=== PATIENT | male | born 1940 | race Caucasian/White ===

== ENCOUNTER 2022-03-01 10:43 | Outpatient (CLI) | payer MEDICARE, OTHER, SELFPAY ==
[2022-03-01 14:08] LABS: Chloride* 104 mmol/L (96-114); Potassium* 4.9 mmol/L (3.6-5.1); Sodium* 140 mmol/L (135-149)
[2022-03-01 14:11] LABS: Alanine Aminotransferase* 12 U/L (4-50); Carbon Dioxide* 30 mmol/L (20-32); Cholesterol* 150 mg/dL (90-199); Creatinine* 0.9 mg/dL (0.5-1.5); Estimated Glomerular Filt Rate 86 ml/min
[2022-03-01 14:12] LABS: Blood Urea Nitrogen* 24 mg/dL (7-30); Calcium* 8.8 mg/dL (8.4-10.6); Glucose* 78 mg/dL (60-115); HDL Cholesterol* 34 mg/dL (>=40); LDL Cholesterol Calculated 85 mg/dL (<100); Triglycerides* 156 mg/dL (40-149)
== END 2022-03-01 10:44 | disposition home or self-care (01) ==
PROVIDERS: PCP Family Medicine; Visit Provider Family Medicine
DX: I10 Essential (primary) hypertension (principal); M06.9 Rheumatoid arthritis, unspecified
CPT/HCPCS: 80048; 80061; 84460

== ENCOUNTER 2024-06-28 13:52 | Outpatient (CLI) | payer MEDICARE, OTHER, SELFPAY ==
--- OUTSIDE RECORDS SUMMARY | 2024-06-28 13:55 | XMS_ITS | Encounter Summary ---
Author Organization [facility] Address [address] [place] [address] Care Team Providers Care Telemetry Tech Name Role Phone Keven Montoya M.D. Primary Care Provider [phone] Reason for Referral * Outpatient (Routine) - Authorized Specialty Diagnoses / Procedures Referred By Contac t Referred To Contact Diagnoses Arthritis Hip Procedures DX Hip And Pelvis Left 2-3 Views Oleg Rojas M.D. [address] [place] [address] Phone: tel: fax: [facility] Region Referral ID Status Reason Start Date Expiration Date V isits Requested Visits Authorized [id number] Authorized 06/11/2024 06/11/2025 1 1 OR DATA ANALYST * Outpatient (Routine) - Authorized Specialty Diagnoses / Procedures Referred By Contac t Referred To Contact Family Medicine Diagnoses Arthritis Hip Oleg Rojas M.D. [address] [place] [address] Phone: tel: fax: [facility] Region Referral ID Status Reason Start Date Expiration Date V isits Requested Visits Authorized [id number] Authorized 06/11/2024 12/11/2025 1 1 OR DATA ANALYST * Outpatient (Routine) - Authorized Specialty Diagnoses / Procedures Referred By Contac t Referred To Contact Orthopedic Surgery Ivance, Oleg W, M.D. [address] [place] [address] Phone: tel: fax: [facility] Region Referral ID Status Reason Start Date Expiration Date V isits Requested Visits Authorized [id number] Authorized 06/11/2024 12/11/2025 1 1 OR DATA ANALYST * Outpatient (Routine) - Authorized Specialty Diagnoses / Procedures Referred By Wilian gomez Referred To Contact Orthopedic Surgery Oleg Rojas M.D. [address], [place] [address] Phone: tel: fax: [facility] Region Referral ID Status Reason Start Date Expiration Date V isits Requested Visits Authorized [id number] Authorized 06/11/2024 12/11/2025 1 1 OR DATA ANALYST Reason for Visit * Reason Comments Pain Pre-op Exam * Outpatient (Routine) - Closed Specialty Diagnoses / Procedures Referred By Wilian t Referred To Contact Orthopedic Surgery Diagnoses Arthritis Hip Maximiliano Martinez M.D. [address], [place] [address] Phone: tel: fax: [facility] Region Referral ID Status Reason Start Date Expiration Date Visits Re quested Visits Authorized [id number] Closed 06/02/2024 12/02/2025 1 1 Encounter Details Date Type Department Care Team (Late st Contact Info) Description 06/11/2024 9:15 AM SENIOR DATA ANALYST Comprehensive Visit Department of Orthopedic Surgery in [place], [place] [address], [place] [phone] Oleg Rojas M.D. [address], [place] [phone] Arthritis Hip Social History Tobacco Use Types Packs/Day Years Used Date Smoking Tobacco: Former Smokeless Tobacco: Never Tobacco Cessation:Counseling Given: Not Answered Alcohol Use Standard Drinks/Week Comments Never 0 (1 standard drink = 0.6 oz pur e alcohol) PHQ-2 Answer Date Recorded PHQ-2 Score 0 01/15/2021 Nutrition Answer Date Recorded Nutrition: EVOO Fat Source 13 04/25 Nutrition: Servings of Fruits/Vegetables per Day Not on file 04/25/2020 Dental Answer Date Recorded Dental: Regular Dentist Unknown 09/19/19 Sex and Gender Information Value Date Recorded Sex Assigned at Not on file Legal Sex Male 4:20 AM SENIOR DATA ANALYST Gender Identity Male 12/01/2017 1:25 PM CDT Sexual Orientation Straight 12/01/2017 1: 25 PM CDT documented as of this encounter Last Filed Vital Signs Vital Sign Reading Time Taken Comments Blood Pressure - - Pulse - - Temperature 36.1 C (97 F) 06/11/2024 9:08 AM SENIOR DATA ANALYST Respiratory Rate - - Oxygen Saturation - - Inhaled Oxygen Concentration - - Weight 88.3 kg (194 lb 10.7 oz) 06/11/2024 9:08 AM SENIOR DATA ANALYST Height 180.5 cm (5' 11.06) 06/11/2024 9:[address] Body Mass Index 27.1 06/11/2024 9:08 AM SENIOR DATA ANALYST documented in this encounter Patient Instructions * Patient Instructions* Socorro Iqbal L.P.N. - 06/11/2024 9:15 AM SENIOR DATA ANALYST Patient to be scheduled for left total hip arthroplasty with Dr. Rojas. [facility] Hip Replacement Patient Education booklet was given and reviewed with patient verbalizing understanding of information. Treating Constipation Caused by Pain Medications booklet given and reviewed with patient verbalizing understanding of information. [facility] Medical Necessity form was completed and given to Surgery Coordinator. Application for Disability Parking Certificate was completed and given to patient. Reviewed pre-op dental care and post-op dental prophylactic antibiotic guidelines with patient with patient verbalizing understanding of guidelines. Patient was given YSABEL wipes and How to Cleanse Your Skin Before Surgery brochure with patient verbalizing understanding of usage. Reviewed how to care for incision post-operatively with handouts given on Prineo dressing. Patient is a non smoker. Information was given and reviewed on Pre-operative teaching class at [facility]. Patient will call [facility] to confirm the pre-operative session they will attend. 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 After the surgery. Patient does have a son who lives 2 miles from him who is able to help out once in awhile. Patient will call back in to schedule once he has set up home assistance. OR DATA ANALYST documented in this encounter Consult Notes * Oleg Rojas M.D. - 06/11/2024 9:15 AM CST Patient is an 83-year-old male with left hip pain. He has [id number] arthritis in that hip. Seen at the request of Dr. Maximiliano Martinez. He likes to walk, sometimes up to 6 miles a day. He would like to remain active but is getting more and more of a problem to walk long distances. His hip will ache at night. He has trouble rolling over, trouble finding a comfortable position. The pain is in the groin. He gets sharp pains, stabbing pain. Sometimes, it is kind of a constant pain. Could be up to 9/10 pain. His right hip is arthritic as well but does not bother him like the left side does. Allergies, past medical/surgical history, medications were reviewed as per chart. Does have a history of rheumatoid arthritis. He is on methotrexate. REVIEW OF SYSTEMS No recent fever, chills, chest pain, shortness of breath. SOCIAL HISTORY Smoking, alcohol history unknown. OBJECTIVE PHYSICAL EXAMINATION General: He is a well-developed, well-nourished, pleasant 83-year-old male. No acute distress. Oriented x3. Mood and affect are normal. Vital Signs: As per nurse's note that were taken today. Gait: He ambulates with a normal heel-toe gait. Extremities: Left hip has decreased motion. He has pain with extremes of motion. Right hip has better motion. No redness or warmth or swelling about the left hip. Good range of motion of the left knee. Motor and sensation are intact in bilateral lower extremities. Bilateral feet are pink and warm. ASSESSMENT / PLAN #1 Osteoarthritis of the left hip PLAN: I have offered him a left total hip arthroplasty. Risks and benefits were discussed with the patient, infection, bleeding, nerve and vessel injury, and blood clots and leg length discrepancy. He doeswish to proceed with surgery. OR DATA ANALYST OR DATA ANALYST documented in this encounter Plan of Treatment Upcoming Encounters Date Type Department Care Team (Late st Contact Info) Description 09/09/2024 10:20 AM SENIOR DATA ANALYST Appointment Department of Laboratory Medicine in [place], [place] [address] [place] [phone] Sonido Pino P.A.-C., M.S. [address] [place] [address] Scheduled Orders Name Type Priority Associated Diagnoses Orde r Schedule DX Hip And Pelvis Left 2-3 Views Imaging RAD - Routine (most inpatients and all outpatients) Arthritis Hip 1 Occurrences starting 06/11/2024 until 06/11/2025 Scheduled Referrals Name Type Priority Associated Diagnoses Order Schedule Orthopedic Surgery Post Op (clinic) Outpatient Referral Routine 1 Occurrenc es starting 06/11/2024 until 09/11/2025 Orthopedic Surgery Post Op (clinic) Outpatient Referral Routine 1 Occurrenc es starting 06/11/2024 until 12/09/2024 Primary Care - [facility] consult (clinic) Outpatient Referral Routine Arthritis Hip Expected: 06/11/2024, Expires: 09/11/2025 documented as of this encounter Visit Diagnoses Diagnosis Arthritis Hip documented in this encounter Additional Health Concerns Infection Onset Date Last Indicated Resolved Time Protective Environment 11/21/2022 11/21/2022 documented as of this encounter Care Teams Telemetry Tech Relationship Specialty Start Date End Date Keven Montoya M.D. [address] [place] [address] PCP - General Family Medicine 12/26/20 documented as of this encounter
--- OUTSIDE RECORDS SUMMARY | 2024-06-28 13:55 | XMS_ITS | Referral Summary ---
Author Organization [facility] Address [address] [place] [address] Care Team Providers Care Turret Punch Operator Name Role Phone Keven Montoya M.D. Primary Care Provider Source Comments Patient records contain information from all sites at [facility]. For routine questions regarding patient records, call [phone] during business hours, M-F 8:00 AM - 5:00 PM Central Time. Record requests for emergency care only can be directed to [phone] at any time.[facility] Encounters Date Type Department Care Team Description 06/11/2024 Documentation Division of Rheumatology in [place], [place] [address] [place] [address] Roseanne Avalos R.N. Lab Monitoring 06/11/2024 9:15 AM BILINGUAL SOCIAL WORKER Comprehensive Visit Department of Orthopedic Surgery in [place], [place] [address] [phone] Oleg Rojas M.D. Arthritis Hip 06/10/2024 8:53 AM BILINGUAL SOCIAL WORKER - 06/10/2024 11:59 PM BILINGUAL SOCIAL WORKER Hospital Encounter Department of Laboratory Medicine in [place], [place] [address] [phone] Sonido Pino P.A.-C., M.S. Medication Therapy Retirement Not Anticoagulant Discharge Disposition: Home or Self Care 06/02/2024 10:14 AM BILINGUAL SOCIAL WORKER - 06/02/2024 11:59 PM BILINGUAL SOCIAL WORKER Hospital Encounter Department of Radiology in [place], [place] [address] [place] [phone] Maximiliano Martinez M.D. Arthritis Hip Discharge Disposition: Home or Self Care 06/02/2024 10:00 AM BILINGUAL SOCIAL WORKER Office Visit Department of Physical Medicine and Rehabilitation in [place], [place] [address] [place] [phone] Maximiliano Martinez M.D. Arthritis Hip (Primary Dx); Pain Hip Left; Bursitis Trochanteric Bilateral 06/01/2024 Orders Only [facility] Keven Montoya M.D. 05/28/2024 Clinical Communication Department of Physical Medicine and Rehabilitation in [address] [phone] Maximiliano Martinez M.D. Follow-up 05/12/2024 10:00 AM CDT Procedure visit Department of Physical Medicine and Rehabilitation in [address] [phone] Maximiliano Martinez M.D. Bursitis Trochanteric Left 05/06/2024 Clinical Communication Department of Physical Medicine and Rehabilitation in [address] [phone] Maximiliano Martinez M.D. Nurse Assessment (Changes in hip pain) 04/22/2024 11:10 AM CDT Ancillary Procedure Department of Physical Medicine and Rehab 04/22/2024 11:30 AM CDT Procedure visit Department of Physical Medicine and Rehabilitation in [place], [place] [address] [place] [phone] Maximiliano Martinez M.D. Pain Hip Bilateral (Primary Dx); Arthritis Hip 04/14/2024 Orders Only Department of Physical Medicine and Rehabilitation in [place], [place] [address] [place] [phone] Maximiliano Martinez M.D. Arthritis Hip (Primary Dx) 04/14/2024 Clinical Communication Department of Family [facility], in [address] [phone] Keven Montoya M.D. Order Request 04/09/2024 Orders Only Department of Family Medicine, [facility], in [address] [phone] Keven Montoya M.D. Arthritis Hip (Primary Dx) 04/02/2024 Clinical Communication Department of Orthopedic Surgery in [place], [place] [address] [place] [phone] Juan Manuel Mendez M.D. from Last 3 Months Allergies No known active allergies Medications FOLIC ACID/MULTIVIT-M IN/LUTEIN (CENTRUM SILVER ORAL) Take 1 tablet by mouth daily. 9 Active cyanocobalamin (for_VITAMIN B12) 500 mcg tablet Take 1 tablet by mouth daily. 0 Active ascorbic acid, vitamin C, (ascorbic acid with sun hips) 500 mg tablet Take 1 tablet by mouth daily. 9 Active aspirin, buffered, 325 mg tablet Take 325 mg by mouth daily. Active gabapentin (NEURONTIN) 300 mg capsule Take 1 capsule (300 mg total) by mouth 3 (three) times a day. 270 capsule 3 1 Active Additional Information Patient taking differently:300 mg oralAs needed, Reported on 03/10/2024 Vitamin C 1,000 mg tablet TAKE 1000MG BY MOUTH DAILY 1 Active lisinopriL (PRINIVIL,ZESTR IL) 20 mg tablet Take 20 mg by mouth daily. 3 Active methotrexate, PF, 25 mg/mL PF injectionIndica tions:Arthritis Rheumatoid (HCC) Inject 0.8 mL (20 mg total) under the skin once a week. Remember to do blood tests every 3 months. 9.6 mL 3 4 03/12/20 25 Active syringe with needle (BD Tuberculin Syringe) 1 mL 27 x 1/2 syringeIndicati ons:Arthritis Rheumatoid (HCC) USE WITH INJECTABLE METHOTREXATE 50 each 3 4 Active hydroxychloroqu ine (PlaqueniL) 200 mg tabletIndicatio ns:Arthritis Rheumatoid (HCC) Take 1 tablet (200 mg total) by mouth daily. Remember to do yearly eye exam . 90 tablet 3 4 Active folic acid 1 mg tabletIndicatio ns:Arthritis Rheumatoid (HCC) Take 5 tablets (5,000 mcg total) by mouth daily. Annual rheum appt needed for future refills. 450 tablet 3 4 03/12/20 25 Active insulin syringe-needle U-100 1 mL 30 gauge x 3/8 syringeIndicati ons:Arthritis Rheumatoid (HCC) Use with methotrexate injection 12 each 3 4 Active albuterol 90 mcg/actuation inhaler Inhale 1-2 puffs every 4 (four) hours as needed. 4 Active benzonatate (Tessalon) 200 mg capsule Take 200 mg by mouth 3 (three) times a day as needed. 4 Active Active Problems Problem Noted Date Diagnosed Date Lesion Skin Face 12/01/2017 Arthritis Rheumatoid 11/06/2004 Immunizations Name Administration Dates Next Due DT, Pediatric 01/09/2006 H1N1 All Forms 04/10/2010 Influenza TIV (IM) 08/14/2012,06/22/2008, 001 Influenza, Seasonal, Injectable 08/14/2012,06/22,05/21/2001 Influenza, Unspecified 08/24/2015,2012,08/14/2012,2011 PPSV23 06/28/2008 Td Preservative Free (TENIVA C, DECAVAC) 04/21/2018 Tdap 01/09/2006 influenza trivalent high dos e (HD)(PF) 06/07/2019,06/02/2018,05/11/2014 influenza trivalent vaccine (6 months and older)(PF) 04/10/2010 influenza vaccine quad (FLUZONE/FLUARIX) (6 months and older)(PF) 04/17/2020,08/24/2015 Social History Tobacco Use Types Packs/Day Years [...] Date Recorded Dental: Regular Dentist Unknown 09/19/19 21 Sex and Gender Information Value Date Recorded Sex Assigned at Not on file Legal Sex Male 4:20 AM BILINGUAL SOCIAL WORKER Gender Identity Male 12/01/2017 1:25 PM CDT Sexual Orientation Straight 12/01/2017 1: 25 PM CDT Last Filed Vital Signs Vital Sign Reading Time Taken Comments Blood Pressure 150/79 03/12/2024 8:49 AM CDT Pulse 84 03/12/2024 8:49 AM CDT Temperature 36.1 C (97 F) 06/11/2024 9:08 AM BILINGUAL SOCIAL WORKER Respiratory Rate 20 01/15/2021 9:38 AM CDT Oxygen Saturation - - Inhaled Oxygen Concentration - - Weight 88.3 kg (194 lb 10.7 oz) 06/11/2024 9:08 AM BILINGUAL SOCIAL WORKER Height 180.5 cm (5' 11.06) 06/11/2024 9:[address] Body Mass Index 27.1 06/11/2024 9:08 AM BILINGUAL SOCIAL WORKER Plan of Treatment Upcoming Encounters Date Type Department Care Team (Late st Contact Info) Description 09/09/2024 10:20 AM BILINGUAL SOCIAL WORKER Appointment Department of Laboratory Medicine in [address] [phone] Sonido Pino, P.A.-C., M.S. [address] [place] [address] Medical Devices Implanted Type Area Aircraft Fuselage Framer Device Identifier Shelf Expiration Date Model / Serial / Lot [employer]elok Rp Mkiii Tiunite 4.00mm Rp 4.00mm X 15.00mm- 011 Implanted:Qty: 1 on 07/01/2011 by Sonido Roblero D.D.S. Hardware e.g. pins/screws/r ods Mouth [employer] [id number] / / [id number] Description:Site #4 [employer] Rp Mkiii Tiunite 4.00mm Rp 4.00mm X 13.00mm- 011 Implanted:Qty: 1 on 07/01/2011 by Sonido Roblero D.D.S. Hardware e.g. pins/screws/r ods Mouth [employer] [id number] / / [id number] Description:Site #5 Jeannie Thompsoniii Tiunite 4.00mm Rp 4.00mm X 15.00mm- 011 Implanted:Qty: 1 on 07/01/2011 by Sonido Roblero D.D.S. Hardware e.g. pins/screws/r ods Mouth [employer] [id number] / / [id number] Description:Site #7 Gonzalorjosephine Thompsoniii Tiunite 4.00mm Rp 4.00mm X 15.00mm- 011 Implanted:Qty: 1 on 07/01/2011 by Sonido Roblero D.D.S. Hardware e.g. pins/screws/r ods Mouth [employer] [id number] / / [id number] Description:Site #8 Gonzalorjosephine Thompsoniii Tiunite 4.00mm Rp 4.00mm X 15.00mm- 011 Implanted:Qty: 1 on 07/01/2011 by Sonido Roblero D.D.S. Hardware e.g. pins/screws/r ods Mouth [employer] [id number] / / [id number] Description:Site #9 Jeannie Thompsoniii Tiunite 4.00mm Rp 4.00mm X 11.50mm- 011 Implanted:Qty: 1 on 07/01/2011 by Sonido Roblero D.D.S. Hardware e.g. pins/screws/r ods Mouth [employer] [id number] / / [id number] Description:Site #12 Gonzalorjosephine Rp Mkiii Tiunite 4.00mm Rp 4.00mm X 10.00mm- 011 Implanted:Qty: 1 on 07/01/2011 by Sonido Roblero D.D.S. Hardware e.g. pins/screws/r ods Mouth [employer] [id number] / / [id number] Description:Site #13 Procedures Procedure Name Priority Date/Time Associated Diagnosis Comments CREATININE WITH EGFR, S/P Routine 06/10/2024 9:27 AM BILINGUAL SOCIAL WORKER Medication Therapy Rail Switch Operator Not Anticoagulant ALANINE AMINOTRANSFERASE (ALT), S/P Routine 06/10/2024 9:27 AM BILINGUAL SOCIAL WORKER Medication Therapy Retirement Not Anticoagulant ASPARTATE AMINOTRANSFERASE (AST), S/P Routine 06/10/2024 9:27 AM BILINGUAL SOCIAL WORKER Medication Therapy Rail Switch Operator Not Anticoagulant CBC WITH DIFFERENTIAL, B Routine 06/10/2024 9:27 AM BILINGUAL SOCIAL WORKER Medication Therapy Rail Switch Operator Not Anticoagulant DX HIP AND PELVIS LEFT 2-3 VIEWS RAD - Routine (most inpatients and all outpatients) 06/02/2024 10:30 AM BILINGUAL SOCIAL WORKER Arthritis Hip NV ARTHCS ASP/INJ MJR JT W US Routine 05/12/2024 10:00 AM CDT Bursitis Trochanteric Left NV ARTHCS ASP/INJ MJR JT W US Routine 04/22/2024 11:30 AM CDT Arthritis Hip Pain Hip Bilateral NV ARTHCS ASP/INJ MJR JT W US Routine 04/22/2024 11:30 AM CDT Arthritis Hip Pain Hip Bilateral PHYSICAL MEDICINE AND REHAB IMAGE EXAM Routine 04/22/2024 11:10 AM CDT BASIC METABOLIC PANEL, S/P Routine 12/31/2022 10:58 AM CDT Monitoring For Therapeutic Drug Therapy from Last 3 Months or Most Recently Relevant to Health Maintenance Results * (ABNORMAL) CBC with Differential, Blood (06/10/2024 9:27 AM BILINGUAL SOCIAL WORKER) Hemoglobin 14.5 13.2 - 16.6 g/dL 06/10/2024 9:36 AM BILINGUAL SOCIAL WORKER OWAT Hematocrit 42.5 38.3 - 48.6 % 06/10/2024 9:36 AM BILINGUAL SOCIAL WORKER OWAT Erythrocytes 4.48 4.35 - 5.65 x10(12)/L 06/10/2024 9:36 AM BILINGUAL SOCIAL WORKER OWAT MCV 94.9 78.2 - 97.9 fL 06/10/2024 9:36 AM BILINGUAL SOCIAL WORKER OWAT RBC Distrib Width 15.6(H) 11.8 - 14.5 % 06/10/2024 9:36 AM BILINGUAL SOCIAL WORKER OWAT Platelet Count 216 135 - 317 x10(9)/L 06/10/2024 9:36 AM BILINGUAL SOCIAL WORKER OWAT Leukocytes 6.2 3.4 - 9.6 x10(9)/L 06/10/2024 9:36 AM BILINGUAL SOCIAL WORKER OWAT Neutrophils 4.41 1.56 - 6.45 x10(9)/L 06/10/2024 9:36 AM BILINGUAL SOCIAL WORKER OWAT Lymphocytes 0.92(L) 0.95 - 3.07 x10(9)/L 06/10/2024 9:36 AM BILINGUAL SOCIAL WORKER OWAT Monocytes 0.65 0.26 - 0.81 x10(9)/L 06/10/2024 9:36 AM BILINGUAL SOCIAL WORKER OWAT Eosinophils 0.13 0.03 - 0.48 x10(9)/L 06/10/2024 9:36 AM BILINGUAL SOCIAL WORKER OWAT Basophils 0.06 0.01 - 0.08 x10(9)/L 06/10/2024 9:36 AM BILINGUAL SOCIAL WORKER OWAT Blood (Blood, Venous) 06/10/2024 9:27 AM BILINGUAL SOCIAL WORKER 06/10/2024 9:33 AM BILINGUAL SOCIAL WORKER us Sonido Pino P.A.-C., M.S. LAB BLOOD ADD-ON Final Result [facility] [address] [place] [address], [facility] OWAT [facility] in [place] [address] [place] [address] * ALT (Alanine Aminotransferase) (06/10/2024 9:27 AM BILINGUAL SOCIAL WORKER) Alanine Aminotransferase (ALT), P 10 7 - 55 U/L 06/10/2024 9:57 AM BILINGUAL SOCIAL WORKER OWAT Blood (Blood, Venous) 06/10/2024 9:27 AM BILINGUAL SOCIAL WORKER 06/10/2024 9:33 AM BILINGUAL SOCIAL WORKER us Sonido Pino P.A.-C., M.S. LAB BLOOD ADD-ON Final Result Performing Organization Address City/[facility]/ZIP Co de Phone Number [facility] [address], [place] [address], [place] OWAT [facility] in [place] [address], [place] [address] * AST (Aspartate Aminotransferase) (06/10/2024 9:27 AM BILINGUAL SOCIAL WORKER) Aspartate Aminotransferase (AST), P 24 8 - 48 U/L 06/10/2024 9:57 AM BILINGUAL SOCIAL WORKER OWAT Blood (Blood, Venous) 06/10/2024 9:27 AM BILINGUAL SOCIAL WORKER 06/10/2024 9:33 AM BILINGUAL SOCIAL WORKER us Sonido Pino P.A.-C., M.S. LAB BLOOD ADD-ON Final Result Performing Organization Address [facility] Co de Phone Number [facility] [address], [place] [address], [place] [facility] in [place] [address] [place] [address] * Creatinine with Estimated GFR (06/10/2024 9:27 AM BILINGUAL SOCIAL WORKER) Creatinine 1.04 0.74 - 1.35 mg/dL 06/10/2024 9:57 AM BILINGUAL SOCIAL WORKER OWAT Estimated GFR (eGFR) 71 >=60 mL/min/BSA 06/10/2024 9:57 AM BILINGUAL SOCIAL WORKER OWAT Comment: Estimated GFR calculated using the 2020 CKD_EPI creatinine equation. Blood (Blood, Venous) 06/10/2024 9:27 AM BILINGUAL SOCIAL WORKER 06/10/2024 9:33 AM BILINGUAL SOCIAL WORKER us Sonido Pino P.A.-C., M.S. LAB BLOOD ADD-ON Final Result [facility] [address] [place] [address], [facility] OWAT [facility] in [place] [address] [place] [address] * DX Hip And Pelvis Left 2-3 Views (06/02/2024 10:30 AM BILINGUAL SOCIAL WORKER) Anatomical Region Laterality Modality Lower Extremity, Pelvis, Hip , Musculoskeletal RST LOS, Musculoskeletal ARZ LOS, Muskuloskeletal FLA LOS Left Digit al Radiography Impressions 06/02/2024 10:34 AM BILINGUAL SOCIAL WORKER Comparison 03/12/2024. Unchanged moderate left hip joint osteoarthritis. Alignment normal. No acute fracture. Asphericity of the femoral head neck junctions can predispose to femoroacetabular impingement bilaterally. Narrative 06/02/2024 10:34 AM BILINGUAL SOCIAL WORKER EXAM: DX HIP AND PELVIS LEFT 2-3 VIEWS Procedure Note Azeem Bowden M.D. - 06/02/2024 EXAM: DX HIP AND PELVIS LEFT 2-3 VIEWS IMPRESSION: Comparison 03/12/2024. Unchanged moderate left hip joint osteoarthritis. Alignment normal. Noacute fracture. Asphericity of the femoral head neck junctions canpredispose to femoroacetabular impingement bilaterally. us Maximiliano Martinez M.D. IMG DIAGNOSTIC IMAGING P ROCEDURES Final Result * NV ARTHCS ASP/INJ MJR JT W US (05/12/2024 10:00 AM CDT) Only the most recent of3 resultswithin the time period is included. Narrative MMODAL - 05/12/2024 10:00 AM CDT Maximiliano Martinez M.D. 05/12/2024 9:52 AM Hip site - Left greater trochanteric bursa: injection only Performed by: Maximiliano Martinez M.D. Authorized by: Maximiliano Martinez M.D. Care team members present 1. Ell, Dulce K PROCEDURE DETAILS Indications: Left trochanteric bursitis and myofascial lateral hip pain Procedure Location hip Hip site - Left greater trochanteric bursa Site prep: patient was prepped and draped in usual sterile fashion Patient position: side-lying Procedural approach: posterolateral Procedure performed: injection only Needle gauge: 25 G, length: 2.5 in Ultrasound image guidance used to localize target, identify at risk structures, and dynamically used to direct therapy to the target. Image(s) acquired and saved. Pre-procedure image guidance used to localize target and identify at risk structures, and plan approach and site was marked using indelible marker Probe: convex low/mid-frequency Needle approach: posterior to anterior Ultrasound visualization: in-plane Procedural Medication The following medications were administered at the target site(s) Local anesthetic: 4 mL BUPivacaine PF 0.25 % (2.5 mg/mL) Corticosteroid: 40 mg methylPREDNISolone acetate 40 mg/mL CONSENT Consent obtained: written (Risks, benefits and alternatives were discussed and a written Informed Consent was obtained. Please see Informed Consent form for further details.) UNIVERSAL PROTOCOL All relevant documentation and testing were reviewed and available. All required blood products, implants, devices and or special equipment were made available as applicable. Pre-procedure verification was conducted and the correct site was marked if required. A fire risk and smoke assessment were done as applicable. The procedural time-out to verify correct patient, correct side/site, and procedure was conducted prior to performing the procedure and confirmed in a procedural pause. PRE-PROCEDURE DETAILS Procedure purpose: diagnostic and therapeutic Indications: Left trochanteric bursitis and myofascial lateral hip pain Appropriate hand hygiene, gown, cap, mask, protective eyewear, sterile gloves, skin preparation, sterile drape, and strict aseptic technique were utilized as applicable for the procedure. Site preparation: chlorhexidine POST-PROCEDURE DETAILS Procedure completed successfully: yes Complications: no apparent complications Post-procedure instructions: avoid strenuous activity for 5 days, avoid submersion of procedure site for 24 hours and post-procedure activity instructions provided Discharge instructions: ice area as needed for comfort us Maximiliano Martinez M.D. PROCEDURE/MINOR SURGICAL ORDERABLES Final Result MMODAL NA * Non-Radiology Image-Physical Medicine And Rehab Image Exam (04/22/2024 11:10 AM CDT) 04/22/2024 11:1 0 AM CDT Narrative IIMS - 04/22/2024 12:08 PM CDT This order has been created and auto-finalized to support the import of images acquired without order. The clinical documentation to support these images can be found on the encounter that produced images. us Provider Not In System IMG NON RAD IMAGING PROCE DURES Final Result IIMS NA from Last 3 Months Additional Health Concerns Infection Onset Date Last Indicated Protective Environment 11/21/2022 3 Insurance MEDICARE MANUAL QA TESTER BENEFIT PLAN Care Teams Turret Punch Operator Relationship Specialty Start Date End Date Keven Montoya M.D. [address] [place], [place] [address] [place] [phone] PCP - General Family Medicine 12/26/20
--- OUTSIDE RECORDS SUMMARY | 2024-06-28 13:55 | XMS_ITS | Clinical Summary ---
Author Organization [facility] Address [address] [place] [id number] Care Team Providers Care Order Builder Loader Name Role Phone No Ref-Primary, Physician Primary Care Provider Allergies No known active allergies Medications hydroxychloroqui ne (PLAQUENIL) 200 MG tablet Take 200 mg by mouth daily Active folic acid-vit B6-vit B12 (FOLGARD) 0.8-10-0.115 MG TABS per tablet Take 1 tablet by mouth daily Active Social History Tobacco Use Types Packs/Day Years Used Date Smoking Tobacco: Never Assessed Sex and Gender Information Value Date Recorded Sex Assigned at Not on file Legal Sex Male 4:00 AM FRET SAW OPERATOR Gender Identity Not on file Sexual Orientation Not on file Last Filed Vital Signs Vital Sign Reading Time Taken Comments Blood Pressure 140/80 08/29/2017 8:18 PM FRET SAW OPERATOR Pulse 90 08/29/2017 8:18 PM FRET SAW OPERATOR Temperature 36.4 C (97.6 F) 08/29/2017 8:18 PM FRET SAW OPERATOR Respiratory Rate 18 08/29/2017 8:18 PM FRET SAW OPERATOR Oxygen Saturation 90% 08/29/2017 7:10 PM FRET SAW OPERATOR Inhaled Oxygen Concentration - - Weight - - Height - - Body Mass Index - - Plan of Treatment Not on file Insurance MEDICARE Care Teams Order Builder Loader Relationship Specialty Start Date End Date No Ref-Primary, Physician PCP - General 08/29/17
--- OUTSIDE RECORDS SUMMARY | 2024-06-28 13:55 | XMS_ITS | Encounter Summary ---
Author Organization [facility] Address [address] [place] [address] Care Team Providers Care Rubber Block Layer Name Role Phone Keven Montoya M.D. Primary Care Provider [phone] Reason for Visit * Reason Comments Lab Monitoring Encounter Details Date Type Department Care Team (Late st Contact Info) Description 06/11/2024 Documentation Division of Rheumatology in [place], [place] [address] [place] [phone] Roseanne Avalos RKatharinaN. [address] [place] [phone] Lab Monitoring Social History Tobacco Use Types Packs/Day Years Used Date Smoking Tobacco: Former Smokeless Tobacco: Never Alcohol Use Standard Drinks/Week Comments Never 0 [...] on file Legal Sex Male 4:20 AM ENGINEER Gender Identity Male 12/01/2017 1:25 PM CDT Sexual Orientation Straight 12/01/2017 1: 25 PM CDT documented as of this encounter Progress Notes * Roseanne Avalos, R.N. - 06/11/2024 1:17 PM CST Documentation note only, patient not contacted ASSESSMENT Rheumatology monitoring labs completed on 06/10/24 for methotrexate monitoring were reviewed per provider order. Labs reviewed: absolute neutrophil count, ALT, AST, creatinine, hemoglobin, leukocytes, platelets Labs viewable in Labs Tab of Chart Review. PLAN Patient to continue with current plan of care. Patient next due for monitoring labs three months after last monitoring labs; these future lab orders were placed. In 2024, the Division of Rheumatology plans to update the medication lab monitoring review process.With this change, care team review of lab results (like the above note) may not be viewable to the patient via the patient portal. If lab results require an adjustment to your Rheumatology care plan,please be reassured that you will be contacted by a member of our care team. NEER documented in this encounter Plan of Treatment Upcoming Encounters Date Type Department Care Team (Late st Contact Info) Description 09/09/2024 10:20 AM ENGINEER Appointment Department of Laboratory Medicine in [address] [phone] Sonido Pino P.A.-Deysi., M.S. [address] [place] [phone] Scheduled Orders Name Type Priority Associated Diagnoses Orde r Schedule CBC with Differential, Blood Lab Routine Medication Therapy Detention Not Anticoagulant Expected: 09/09/2024, Expires: 09/09/2025 AST (Aspartate Aminotransferase) Lab Routine Medication Therapy C Programmer Not Anticoagulant Expected: 09/09/2024, Expires: 09/09/2025 ALT (Alanine Aminotransferase) Lab Routine Medication Therapy C Programmer Not Anticoagulant Expected: 09/09/2024, Expires: 09/09/2025 Creatinine with Estimated GFR Lab Routine Medication Therapy Detention Not Anticoagulant Expected: 09/09/2024, Expires: 09/09/2025 documented as of this encounter Visit Diagnoses Diagnosis Medication Therapy C Programmer Not Anticoagulant- Primary documented in this encounter Additional Health Concerns Infection Onset Date Last Indicated Resolved Time Protective Environment 11/21/2022 11/21/2022 documented as of this encounter Care Teams Rubber Block Layer Relationship Specialty Start Date End Date Keven Montoya M.D. [address] [place] [address] [place] [phone] PCP - General Family Medicine 12/26/20 documented as of this encounter
--- OUTSIDE RECORDS SUMMARY | 2024-06-28 13:55 | XMS_ITS | Encounter Summary ---
Author Organization [facility] Address [address] [place] [address] Care Team Providers Care Ophthalmic Medical Assistant Name Role Phone Keven Montoya M.D. Primary Care Provider [phone] Encounter Details Date Type Department Care Team (Latest Contact Info) Description 06/10/2024 8:53 AM MULTI TOWNSHIP ASSESSOR - 06/10/2024 11:59 PM MULTI TOWNSHIP ASSESSOR Hospital Encounter Department of Laboratory Medicine in [place], [place] [address] [place] [phone] Sonido Pino PJoe-Deysi., M.S. [address] [place] [phone] Medication Therapy Longterm Not Anticoagulant Discharge Disposition: Home or Self Care Social History Tobacco Use Types Packs/Day Years [...] on file Legal Sex Male 4:20 AM MULTI TOWNSHIP ASSESSOR Gender Identity Male 12/01/2017 1:25 PM CDT Sexual Orientation Straight 12/01/2017 1: 25 PM CDT documented as of this encounter Medications at Time of Discharge albuterol 90 mcg/actuation inhaler Inhale 1-2 puffs every 4 (four) hours as needed. 04/12/2024 ascorbic acid, vitamin C, (ascorbic acid with sun hips) 500 mg tablet Take 1 tablet by mouth daily. 08/16/2008 aspirin, buffered, 325 mg tablet Take 325 mg by mouth daily. benzonatate (Tessalon) 200 mg capsule Take 200 mg by mouth 3 (three) times a day as needed. 04/12/2024 cyanocobalamin (for_VITAMIN B12) 500 mcg tablet Take 1 tablet by mouth daily. 05/31/2010 folic acid 1 mg tabletIndication s:Arthritis Rheumatoid (HCC) Take 5 tablets (5,000 mcg total) by mouth daily. Annual rheum appt needed for future refills. 450 tablet 3 03/12/2024 5 FOLIC ACID/MULTIVIT-RI N/LUTEIN (CENTRUM SILVER ORAL) Take 1 tablet by mouth daily. 08/16/2008 hydroxychloroqui ne (PlaqueniL) 200 mg tabletIndication s:Arthritis Rheumatoid (HCC) Take 1 tablet (200 mg total) by mouth daily. Remember to do yearly eye exam . 90 tablet 3 03/12/2024 insulin syringe-needle U-100 1 mL 30 gauge x 3/8 syringeIndicatio ns:Arthritis Rheumatoid (HCC) Use with methotrexate injection 12 each 3 03/12/2024 lisinopriL (PRINIVIL,ZESTRI L) 20 mg tablet Take 20 mg by mouth daily. 12/05/2022 methotrexate, PF, 25 mg/mL PF injectionIndicat ions:Arthritis Rheumatoid (HCC) Inject 0.8 mL (20 mg total) under the skin once a week. Remember to do blood tests every 3 months. 9.6 mL 3 03/12/2024 5 syringe with needle (BD Tuberculin Syringe) 1 mL 27 x 1/2 syringeIndicatio ns:Arthritis Rheumatoid (HCC) USE WITH INJECTABLE METHOTREXATE 50 each 3 03/12/2024 Vitamin C 1,000 mg tablet TAKE 1000MG BY MOUTH DAILY 11/03/2020 documented as of this encounter Plan of Treatment Upcoming Encounters Date Type Department Care Team (Late st Contact Info) Description 09/09/2024 10:20 AM MULTI TOWNSHIP ASSESSOR Appointment Department of Laboratory Medicine in [place], [place] [address] [place] [phone] Sonido Pino P.A.-C., M.S. [address] [place] [phone] documented as of this encounter Procedures Procedure Name Priority Date/Time Associated Diagnosis Comments CBC WITH DIFFERENTIAL, B Routine 06/10/2024 9:27 AM MULTI TOWNSHIP ASSESSOR Medication Therapy Longterm Not Anticoagulant ALANINE AMINOTRANSFERASE (ALT), S/P Routine 06/10/2024 9:27 AM MULTI TOWNSHIP ASSESSOR Medication Therapy Anthropology Faculty Member Not Anticoagulant ASPARTATE AMINOTRANSFERASE (AST), S/P Routine 06/10/2024 9:27 AM MULTI TOWNSHIP ASSESSOR Medication Therapy Longterm Not Anticoagulant CREATININE WITH EGFR, S/P Routine 06/10/2024 9:27 AM MULTI TOWNSHIP ASSESSOR Medication Therapy Longterm Not Anticoagulant documented in this encounter Results * Creatinine with Estimated GFR (06/10/2024 9:27 AM MULTI TOWNSHIP ASSESSOR) Creatinine 1.04 0.74 - 1.35 mg/dL 06/10/2024 9:57 AM MULTI TOWNSHIP ASSESSOR OWAT Estimated GFR (eGFR) 71 >=60 mL/min/BSA 06/10/2024 9:57 AM MULTI TOWNSHIP ASSESSOR OWAT Comment: Estimated GFR calculated using the 2020 CKD_EPI creatinine equation. Blood (Blood, Venous) 06/10/2024 9:27 AM MULTI TOWNSHIP ASSESSOR 06/10/2024 9:33 AM MULTI TOWNSHIP ASSESSOR us Sonido Pion P.A.-C., M.S. LAB BLOOD ADD-ON Final Result [facility] [address] [place] [address], [place] OWAT [facility] [place] [address] [place] [address] * ALT (Alanine Aminotransferase) (06/10/2024 9:27 AM MULTI TOWNSHIP ASSESSOR) Alanine Aminotransferase (ALT), P 10 7 - 55 U/L 06/10/2024 9:57 AM MULTI TOWNSHIP ASSESSOR OWAT Blood (Blood, Venous) 06/10/2024 9:27 AM MULTI TOWNSHIP ASSESSOR 06/10/2024 9:33 AM MULTI TOWNSHIP ASSESSOR Sonido Pino P.A.-C., M.S. LAB BLOOD ADD-ON Final Result Performing Organization Address [facility] Co de Phone Number [facility] [address], [place] [address], [facility] [place] [address], [place] [address] * AST (Aspartate Aminotransferase) (06/10/2024 9:27 AM MULTI TOWNSHIP ASSESSOR) Aspartate Aminotransferase (AST), P 24 8 - 48 U/L 06/10/2024 9:57 AM MULTI TOWNSHIP ASSESSOR OWAT Blood (Blood, Venous) 06/10/2024 9:27 AM MULTI TOWNSHIP ASSESSOR 06/10/2024 9:33 AM MULTI TOWNSHIP ASSESSOR Sonido Pino P.A.-C., M.S. LAB BLOOD ADD-ON Final Result Performing Organization Address [facility] Co de Phone Number [facility] [address] [place] [address], [facility] [place] [address], [place] [address] * (ABNORMAL) CBC with Differential, Blood (06/10/2024 9:27 AM MULTI TOWNSHIP ASSESSOR) Hemoglobin 14.5 13.2 - 16.6 g/dL 06/10/2024 9:36 AM MULTI TOWNSHIP ASSESSOR OWAT Hematocrit 42.5 38.3 - 48.6 % 06/10/2024 9:36 AM MULTI TOWNSHIP ASSESSOR OWAT Erythrocytes 4.48 4.35 - 5.65 x10(12)/L 06/10/2024 9:36 AM MULTI TOWNSHIP ASSESSOR OWAT MCV 94.9 78.2 - 97.9 fL 06/10/2024 9:36 AM MULTI TOWNSHIP ASSESSOR OWAT RBC Distrib Width 15.6(H) 11.8 - 14.5 % 06/10/2024 9:36 AM MULTI TOWNSHIP ASSESSOR OWAT Platelet Count 216 135 - 317 x10(9)/L 06/10/2024 9:36 AM MULTI TOWNSHIP ASSESSOR OWAT Leukocytes 6.2 3.4 - 9.6 x10(9)/L 06/10/2024 9:36 AM MULTI TOWNSHIP ASSESSOR OWAT Neutrophils 4.41 1.56 - 6.45 x10(9)/L 06/10/2024 9:36 AM MULTI TOWNSHIP ASSESSOR OWAT Lymphocytes 0.92(L) 0.95 - 3.07 x10(9)/L 06/10/2024 9:36 AM MULTI TOWNSHIP ASSESSOR OWAT Monocytes 0.65 0.26 - 0.81 x10(9)/L 06/10/2024 9:36 AM MULTI TOWNSHIP ASSESSOR OWAT Eosinophils 0.13 0.03 - 0.48 x10(9)/L 06/10/2024 9:36 AM MULTI TOWNSHIP ASSESSOR OWAT Basophils 0.06 0.01 - 0.08 x10(9)/L 06/10/2024 9:36 AM MULTI TOWNSHIP ASSESSOR OWAT Blood (Blood, Venous) 06/10/2024 9:27 AM MULTI TOWNSHIP ASSESSOR 06/10/2024 9:33 AM MULTI TOWNSHIP ASSESSOR us Sonido Pino P.A.-C., M.S. LAB BLOOD ADD-ON Final Result [facility] [address] [place] [address], [facility] OWAT [facility] [place] [address] [place] [address] documented in this encounter Visit Diagnoses Diagnosis Medication Therapy Anthropology Faculty Member Not Anticoagulant documented in this encounter Additional Health Concerns Infection Onset Date Last Indicated Resolved Time Protective Environment 11/21/2022 11/21/2022 documented as of this encounter Care Teams Ophthalmic Medical Assistant Relationship Specialty Start Date End Date Keven Montoya M.D. NPI: [id number] [place] [address] [place] [phone] PCP - General Family Medicine 12/26/20 documented as of this encounter
--- OUTSIDE RECORDS SUMMARY | 2024-06-28 13:55 | XMS_ITS | Clinical Summary ---
Author Organization [facility] Address [place], [place] [address] Care Team Providers Care Master Scheduler Name Role Phone Pcp, No Primary Care Provider Unavailabl e Allergies No known active allergies Medications Medication Sig Dispensed Refills Start Date End Date Status folic acid 1 mg tablet Take 5 pills daily 10/25/2014 Active hydroxychloroquin e (PLAQUENIL) 200 mg tablet Take one pill a day 10/25/2014 Activ e methotrexate, PF, 25 mg/mL injection Inject 0.8 mls every week 10/24/2014 Active cyanocobalamin (VITAMIN B12) 500 mcg tablet Take 1 tablet by mouth. 05/31/2010 Active ascorbic acid, vitamin C, (VITAMIN C) 500 mg tablet Take 1 tablet by mouth. 08/16/2008 Active aspirin, buffered (ASCRIPTIN) 325 mg buffered tablet Take 325 mg by mouth. Active lisinopriL (PRINIVIL; ZESTRIL) 20 mg tablet Take 20 mg by mouth once daily. 12/05/2022 Active folic acid-vit b6-vit b12, 0.8-10-0.115mg, (FOLGARD) tablet Take 1 Tablet by mouth. Active albuterol HFA (PRO-AIR; VENTOLIN; PROVENTIL) 90 mcg/actuation inhalerIndication s:Pneumonia of right lower lobe due to infectious organism Inhale 1-2 Puffs by mouth every 4 hours if needed for Shortness Of Breath. 1 Each 01/30/2023 Active Insulin Syringe-Needle U-100 1 mL 29 gauge x 1/2 syrg USE WITH METHOTREXATE INJECTION 12/06/2022 Active Insulin Syringe-Needle U-100 1 mL 30 gauge x 3/8 syrg Use with methotrexate injection 12/06/2022 Active hydroxychloroquin e (PLAQUENIL) 200 mg tablet Take 200 mg by mouth. 02/26/2023 Active B-D TB Syringe 1cc/27Gx1/2 1 mL 27 x 1/2 syrg USE WITH INJECTABLE METHOTREXATE Active hydroxychloroquin e (PLAQUENIL) 200 mg tablet Take 200 mg by mouth. 03/12/2024 Active methotrexate PF 25 mg/mL injection Inject 20 mg subcutaneous once weekly. 03/12/2024 03/12/2025 Active folic acid 1 mg tablet Take 5,000 mcg by mouth. 03/12/2024 03/12/2025 Active albuterol HFA (PRO-AIR; VENTOLIN; PROVENTIL) 90 mcg/actuation inhalerIndication s:Acute cough,SOB (shortness of breath) Inhale 1-2 Puffs by mouth every 4 hours if needed for Shortness Of Breath (Cough). 1 Each 04/12/2024 Active benzonatate (TESSALON) 200 mg capsuleIndication s:Acute cough Take 1 Capsule (200 mg) by mouth 3 times daily if needed for Cough. 21 Capsule 04/12/2024 Active Active Problems Problem Noted Date Diagnosed Date RA (rheumatoid arthritis) 01/16/2015 Encounters Date Type Department Care Team Description 04/12/2024 12:30 PM CDT Ancillary Procedure [address] [phone] 04/12/2024 12:05 PM CDT Office Visit [facility] [address] [place] [phone] Sindhu Zavala, JONATHAN URI 04/12/2024 Travel from Last 3 Months Immunizations Name Administration Dates Next Due Influenza Virus, Unspecified 06/04/2013,09/10/19 12 Influenza, High-dose Inactivated 05/11/2014 Influenza, IIV3 (Age 6-35 mos) 04/10/2010 Influenza, IIV3 (Age >=3 years) 08/14/2012,06/22,05/21/2001 Influenza, IIV4 08/24/2015 Pneumococcal Poly,23-Valent (Pneumovax) 06/28/20 08 Td, Preservative Free (age >= 7 Years) 8 Tdap 01/09/2006 Social History Tobacco Use Types Packs/Day Years Used Date Smoking Tobacco: Former Passive Smoke Exposure: Past Smokeless Tobacco: Never Tobacco Cessation:Counseling Given: Not Answered Comments:quit in 1982 Alcohol Use Standard Drinks/Week Comments No 0 (1 standard drink = 0.6 oz pur e alcohol) Social Connections Answer Date Recorded Frequency of Communication with Friends and Fami ly Not on file 02/07/2024 Financial Resource Strain Answer Date R ecorded Difficulty of Paying Living Expenses 3 02/06/2023 Difficulty of Paying Living Expenses Not on file 02/06/2023 Food Insecurity Answer Date Recorded Worried About Running Out of Food in the Last Ye ar 1 02/06/2023 Transportation Needs Answer Date Record ed Lack of Transportation (Medical) 1 02/06/2023 Housing Stability Answer Date Recorded Unable to Pay for Housing in the Last Year 1 02/06/2023 Sex and Gender Information Value Date Recorded Sex Assigned at Not on file Gender Identity Not on file Sexual Orientation Not on file Obstetrics History Last Filed Vital Signs Vital Sign Reading Time Taken Comments Blood Pressure 148/84 04/12/2024 12:06 PM CDT MA P- 108 Pulse 83 04/12/2024 2:13 PM CDT Temperature 36.5 C (97.7 F) 04/12/2024 2:13 PM CDT Respiratory Rate 20 04/12/2024 2:13 PM CDT Oxygen Saturation 96% 04/12/2024 2:13 PM CDT Inhaled Oxygen Concentration - - Weight 87.1 kg (192 lb 1.6 oz) 04/12/2024 12:03 PM CDT Height 182.5 cm (5' 11.85) 02/06/2023 10:16 AM CDT Body Mass Index 26.16 02/06/2023 10:16 AM CDT Plan of Treatment Health Maintenance Due Date Last Done Comments Depression screening for age 12+ 1952 Zoster (shingles) series for age 50+ (1 of 2) 10/12/1959 Medicare Wellness for age 65+ 2005 Pneumococcal series for age 65+ (2 of 2 - PCV) 06/28/2009 06/28/2008 RSV vaccine for adults or (1 - 1-dose 75+ series) 10/12/2015 BMI (ht and wt on same day) for age 18+ 02/07/2024 02/06/2023, 01/15/2019, 10/17/2015 COVID-19 vaccine series ( season) 2024 07/10/2021, 10/13/2020, 09/15/2020 Influenza for age 65+ 03/28/2024 08/24/2015 , 05/11/2014, 06/04/2013, Additional history exists Tetanus booster 04/21/2028 04/21/2018, 01/09/2006 Tdap Completed 01/09/2006 Procedures Procedure Name Priority Date/Time Associated Diagnosis Comments BASIC METABOLIC PANEL STAT 04/12/2024 2:11 PM CDT Fatigue, unspecified type SOB (shortness of breath) CBC WITH AUTO DIFFERENTIAL STAT 04/12/2024 1:16 PM CDT Fatigue, unspecified type CBC WITH AUTO DIFFERENTIAL STAT 04/12/2024 1:16 PM CDT Fatigue, unspecified type XR CHEST 2 VIEWS PA AND LATERAL STAT 04/12/2024 12:30 PM CDT Acute cough SOB (shortness of breath) from Last 3 Months Results * (ABNORMAL) BASIC METABOLIC PANEL (04/12/2024 2:11 PM CDT) SODIUM 139 136 - 145 mmol/L 04/12/2024 3:37 PM T [facility] POTASSIUM 4.3 3.5 - 5.1 mmol/L 04/12/2024 3:37 PM [facility] CHLORIDE 101 98 - 107 mmol/L 04/12/2024 3:37 PM [facility] CO2,TOTAL 27 22 - 29 mmol/L 04/12/2024 3:37 PM [facility] ANION GAP 11 5 - 18 04/12/2024 3:37 PM [facility] GLUCOSE 96 70 - 99 mg/dL 04/12/2024 3:37 PM [facility] CALCIUM 9.1 8.8 - 10.2 mg/dL 04/12/2024 3:37 PM T [facility] BUN 16 8 - 23 mg/dL 04/12/2024 3:37 PM [facility] CREATININE 0.90 0.70 - 1.20 mg/dL 04/12/2024 3:37 PM [facility] BUN/CREAT RATIO 18 10 - 20 4 3:37 PM [facility] eGFR 85(L) >90 mL/min/1.7 3m2 04/12/2024 3:37 PM [facility] Comment:As of 2021, eG FR is calculated by the CKD-EPI creatinine equation without race adjustment. eGFR can be influenced by muscle mass, exercise, and diet. The reported eGFR is an estimation only and is only applicable if the renal function is stable. Blood BLOOD SPECIMEN / Unknown Non-Lab Venipuncture / Unknown 04/12/2024 2:11 PM CDT 04/12/2024 2:11 PM CDT Sindhu Zavala NP CHEMISTRY [facility] [address] [place] [address] * (ABNORMAL) CBC WITH AUTO DIFFERENTIAL (04/12/2024 1:16 PM CDT) WHITE BLOOD COUNT 5.0 4.5 - 11.0 thou/cu mm 04/12/2024 2:05 PM [facility] RED BLOOD COUNT 4.33 4.30 - 5.90 mil/cu mm 04/12/2024 2:05 PM [facility] HEMOGLOBIN 14.2 13.5 - 17.5 g/dL 04/12/2024 2:05 PM [facility] HEMATOCRIT 40.9 37.0 - 53.0 % 04/12/2024 2:05 PM [facility] MCV 95 80 - 100 fL 04/12/2024 2:05 PM [facility] MCH 32.8 26.0 - 34.0 pg 04/12/2024 2:05 PM [facility] MCHC 34.7 32.0 - 36.0 g/dL 04/12/2024 2:05 PM [facility] RDW 14.2 11.5 - 15.5 % 04/12/2024 2:05 PM [facility] PLATELET COUNT 207 140 - 440 thou/cu mm 04/12/2024 2:05 PM [facility] MPV 9.0 6.5 - 11.0 fL 04/12/2024 2:05 PM [facility] % NEUT 73.2 % 04/12/2024 2:05 PM [facility] % LYMPH 15.3 % 04/12/2024 2:05 PM [facility] % MONO 9.5 % 04/12/2024 2:05 PM [facility] % EOS 1.8 % 04/12/2024 2:05 PM [facility] % BASO 0.2 % 04/12/2024 2:05 PM [facility] ABSOLUTE NEUTROPHILS 3.6 1.7 - 7.0 thou/cu mm 04/12/2024 2:05 PM [facility] ABSOLUTE LYMPHOCYTES 0.8(L) 0.9 - 2.9 thou/cu mm 04/12/2024 2:05 PM [facility] ABSOLUTE MONOCYTES 0.5 <0.9 thou/cu mm 04/12/2024 2:05 PM [facility] ABSOLUTE EOSINOPHILS 0.1 <0.5 thou/cu mm 04/12/2024 2:05 PM [facility] ABSOLUTE BASOPHILS 0.0 <0.3 thou/cu mm 04/12/2024 2:05 PM [facility] Blood BLOOD SPECIMEN / Unknown Non-Lab Venipuncture / Unknown 04/12/2024 1:16 PM CDT 04/12/2024 1:16 PM T Sindhu Zavala NP HEMATOLOGY [facility] [address] [place] [address] * XR CHEST 2 VIEWS PA AND LATERAL (04/12/2024 12:30 PM CDT) Anatomical Region Laterality Modality CHEST, THORAX, Lung, HEART Compu maryan Radiography 04/12/2024 12:4 5 PM CDT Impressions 04/12/2024 12:45 PM CDT No acute cardiopulmonary pathology. Previously noted infiltrate in the right lower lobe has cleared Dictated by Aidan Bennett MD @ 04/12/2024 12:45:47 PM (Electronically Signed) Narrative 04/12/2024 12:45 PM CDT For Patients: As a result of the Cures Act, medical imaging exams and procedure reports are released immediately into your electronic medical record. You may view this report before your referring provider. If you have questions, please contact your health care provider. INDICATION: Acute cough. Shortness of breath. TECHNIQUE: Chest 2 views. COMPARISON: 01/30/2023 FINDINGS: Cardiovascular and mediastinum: Heart size and vasculature are normal in caliber and appearance. Mediastinum is within normal limits. Lungs and pleural spaces: Lungs are clear. No sign of infiltrate or mass. No sign of pleural effusion. No pneumothorax. Bones and soft tissues: Degenerative spine. Procedure Note Deshawn Bennett MD - 04/12/2024 For Patients: As a result of the Cures Act, medical imagingexams and procedure reports are released immediately into your electronicmedical record. You may view this report before your referring provider.If you have questions, please contact your health care provider. INDICATION: Acute cough. Shortness of breath. TECHNIQUE: Chest 2 views. COMPARISON: 01/30/2023 FINDINGS: Cardiovascular and mediastinum: Heart size and vasculature are normal incaliber and appearance. Mediastinum is within normal limits. Lungs and pleural spaces: Lungs are clear. No sign of infiltrate or mass.No sign of pleural effusion. No pneumothorax. Bones and soft tissues: Degenerative spine. IMPRESSION: No acute cardiopulmonary pathology. Previously noted infiltrate in theright lower lobe has cleared Dictated by Aidan Bennett MD @ 04/12/2024 12:45:47 PM (Electronically Signed) Sindhu Zavala NP GENERAL IMAGING from Last 3 Months Care Teams Master Scheduler Relationship Specialty Start Date End Date Pcp, No . PCP - General 12/26/14
--- OUTSIDE RECORDS SUMMARY | 2024-06-28 13:55 | XMS_ITS ---
Author Organization [facility] Address [address] [place] [address] Care Team Providers Care Swahili Teacher Name Role Phone Unavailable Unavailable Unavailable Surgery Details Not on file Complications Check Surgery Details section. Procedure Estimated Blood Loss Check Surgery Details section. Procedure Findings Check Surgery Details section. Procedure Specimens Taken Check Surgery Details section.
--- OUTSIDE RECORDS SUMMARY | 2024-06-28 13:55 | XMS_ITS | Encounter Summary ---
Author Organization [facility] Address [address] [place] [address] Care Team Providers Care Waistline Joiner Lockstitch Name Role Phone Keven Montoya M.D. Primary Care Provider [phone] Reason for Referral * Outpatient (Routine) - Closed Specialty Diagnoses / Procedures Referred By Contac t Referred To Contact Diagnoses Arthritis Hip Procedures DX Hip And Pelvis Left 2-3 Views Maximiliano Martinez M.D. [address] [place] [address] Phone: tel: fax: [facility] Region Referral ID Status Reason Start Date Expiration Date Visits Re quested Visits Authorized [id number] Closed 06/02/2024 06/02/2025 1 1 UIT MAKER Reason for Visit * Outpatient (Routine) - Closed Specialty Diagnoses / Procedures Referred By Contac t Referred To Contact Diagnoses Arthritis Hip Procedures DX Hip And Pelvis Left 2-3 Views Maximiliano Martinez M.D. [address] [place] [address] Phone: tel: [facility] Region Referral ID Status Reason Start Date Expiration Date Visits Re quested Visits Authorized [id number] Closed 06/02/2024 06/02/2025 1 1 Encounter Details Date Type Department Care Team (Latest Contact Info) Description 06/02/2024 10:14 AM BISCUIT MAKER - 06/02/2024 11:59 PM BISCUIT MAKER Hospital Encounter Department of Radiology in [place], [place] [address] [place] [address] Maximiliano Martinez M.D. [address] [place] [address] Arthritis Hip Discharge Disposition: Home or Self Care Social [...] on file Legal Sex Male 4:20 AM BISCUIT MAKER Gender Identity Male 12/01/2017 1:25 PM CDT [...] for future refills. 450 tablet 3 03/12/2024 FOLIC ACID/MULTIVIT-SD N/LUTEIN (CENTRUM SILVER ORAL) Take 1 tablet [...] st Contact Info) Description 09/09/2024 10:20 AM BISCUIT MAKER Appointment Department of Laboratory Medicine in [address] [phone] Sonido Pino P.A.-C., M.S. [address] [place] [phone] documented as of this encounter Procedures Procedure Name Priority Date/Time Associated Diagnosis Comments DX HIP AND PELVIS LEFT 2-3 VIEWS RAD - Routine (most inpatients and all outpatients) 06/02/2024 10:30 AM BISCUIT MAKER Arthritis Hip documented in this encounter Results * DX Hip And Pelvis Left 2-3 Views (06/02/2024 10:30 AM BISCUIT MAKER) Anatomical Region Laterality Modality Lower Extremity, Pelvis, Hip , Musculoskeletal RST LOS, Musculoskeletal ARZ LOS, Muskuloskeletal FLA LOS Left Digit al Radiography Impressions 06/02/2024 10:34 AM BISCUIT MAKER Comparison 03/12/2024. Unchanged moderate left hip joint osteoarthritis. Alignment normal. No acute fracture. Asphericity of the femoral head neck junctions can predispose to femoroacetabular impingement bilaterally. Narrative 06/02/2024 10:34 AM BISCUIT MAKER EXAM: DX HIP AND PELVIS LEFT 2-3 VIEWS Procedure Note Azeem Bowden M.D. - 06/02/2024 EXAM: DX HIP AND PELVIS LEFT 2-3 VIEWS IMPRESSION: Comparison 03/12/2024. Unchanged moderate left hip joint osteoarthritis. Alignment normal. Noacute fracture. Asphericity of the femoral head neck junctions canpredispose to femoroacetabular impingement bilaterally. Maximiliano Martinez M.D. IMG DIAGNOSTIC IMAGING P ROCEDURES Final Result documented in this encounter Visit Diagnoses Diagnosis Arthritis Hip documented in this encounter Additional Health Concerns Infection Onset Date Last Indicated Resolved Time Protective Environment 11/21/2022 11/21/2022 documented as of this encounter Care Teams Waistline Joiner Lockstitch Relationship Specialty Start Date End Date Keven Montoya M.D. [address] [place] [phone] PCP - General Family Medicine 12/26/20 documented as of this encounter
--- OUTSIDE RECORDS SUMMARY | 2024-06-28 13:55 | XMS_ITS | Clinical Summary ---
Author Organization [facility] Address [address] [place] [address] Care Team Providers Care Sample Paster Name Role Phone Keven Montoya M.D. Primary Care Provider Source Comments Patient records contain information from all sites at [facility]. For routine questions regarding patient records, call [phone] during business hours, M-F 8:00 AM - 5:00 PM Central Time. Record requests for emergency care only can be directed to [phone] at any time.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 Arthritis Hip 06/11/2024 Documentation Division of Rheumatology in [place], [place] [address] [place] [address] Roseanne Avalos R.N. Lab Monitoring 06/10/2024 8:53 AM DIRECT CARE SPECIALIST - 06/10/2024 11:59 PM DIRECT CARE SPECIALIST Hospital Encounter Department of Laboratory Medicine in [place], [place] [address] [place] [phone] Sonido Pino P.A.-C., M.S. Medication Therapy Chcf Not Anticoagulant Discharge Disposition: Home or Self Care 06/02/2024 10:14 AM DIRECT CARE SPECIALIST - 06/02/2024 11:59 PM DIRECT CARE SPECIALIST Hospital Encounter Department of Radiology in [address] [address] Maximiliano Martinez M.D. Arthritis Hip Discharge Disposition: Home or Self Care 06/02/2024 10:00 AM DIRECT CARE SPECIALIST Office Visit Department of Physical Medicine and Rehabilitation in [address] [phone] Maximiliano Martinez M.D. Arthritis Hip (Primary Dx); Pain Hip Left; Bursitis Trochanteric Bilateral 06/01/2024 Orders Only [facility] Keven Montoya M.D. 05/28/2024 Clinical Communication Department of Physical Medicine and Rehabilitation in [address] [phone] Maximiliano Martinez M.D. Follow-up 05/12/2024 10:00 AM CDT Procedure visit Department of Physical Medicine and Rehabilitation in [address] [phone] Maximiliano Martinez M.D. Bursitis Trochanteric Left 05/06/2024 Clinical Communication Department of Physical Medicine and Rehabilitation in [place], [place] [address] [place] [address] Maximiliano Martinez M.D. Nurse Assessment (Changes in hip pain) 04/22/2024 11:30 AM CDT Procedure visit Department of Physical Medicine and Rehabilitation in [address] [address] Maximiliano Martinez M.D. Pain Hip Bilateral (Primary Dx); Arthritis Hip 04/22/2024 11:10 AM CDT Ancillary Procedure Department of Physical Medicine and Rehab 04/14/2024 Orders Only Department of Physical Medicine and Rehabilitation in [place], [place] [address] [address] Maximiliano Martinez M.D. Arthritis Hip (Primary Dx) 04/14/[address] [facility], [facility], in [place], [place] [address] [place] [address] Keven Montoya M.D. Order Request 04/09/2024 Orders Only Department of [facility] Medicine, [facility], in [place], [place] [address] [place] [address] Keven Montoya M.D. Arthritis Hip (Primary Dx) 04/02/2024 Clinical Communication Department of Orthopedic Surgery in [place], [place] [address] [place] [address] Juan Manuel Mendez M.D. from Last 3 Months Immunizations Name Administration Dates Next Due DT, [...] on file Legal Sex Male 4:20 AM DIRECT CARE SPECIALIST Gender Identity Male 12/01/2017 1:25 PM CDT Sexual Orientation Straight 12/01/2017 1: 25 PM CDT Last Filed Vital Signs Vital Sign Reading Time Taken Comments Blood Pressure 150/79 03/12/2024 8:49 AM CDT Pulse 84 03/12/2024 8:49 AM CDT Temperature 36.1 C (97 F) 06/11/2024 9:08 AM DIRECT CARE SPECIALIST Respiratory Rate 20 01/15/2021 9:38 AM CDT Oxygen Saturation - - Inhaled Oxygen Concentration - - Weight 88.3 kg (194 lb 10.7 oz) 06/11/2024 9:08 AM DIRECT CARE SPECIALIST Height 180.5 cm (5' 11.06) 06/11/2024 9:[address] Body Mass Index 27.1 06/11/2024 9:08 AM DIRECT CARE SPECIALIST Plan of Treatment Upcoming Encounters Date Type Department Care Team (Late st Contact Info) Description 09/09/2024 10:20 AM DIRECT CARE SPECIALIST Appointment Department of Laboratory Medicine in [address] [phone] Sonido Pino, P.Kathia.-C., M.S. [address] [place] [address] Health Maintenance Due Date Last Done Comments Visit: Annual, age 65+ (or Medicare and <65) 1940 Visit: Medicare Annual Wellness 1940 Zoster Vaccines (1 of 2) 10/12/1959 RSV vaccine - (32-3 6 weeks) or 60+ years (1 - 1-dose 75+ series) 10/12/2015 Depression Screening (Annual PHQ-2) 07/28/2023 COVID-19 Vaccine (2023-2 5 season) 2024 07/10/2021, 10/13/2020, 09/15/2020 Influenza Vaccine (#1) 2024 , 04/17/2020, 06/07/2019, Additional history exists Hydroxychloroquine (PLAQUENI L) Annual Exam 06/25/2024 Potassium Level 04/12/2025 04/12/2024, 12/31/2022 Sodium Level 04/12/2025 04/12/2024, 12/31/2022 Creatinine Level (Kidney Function Test) 06/10/2025 06/10/2024, 04/12/2024, 03/11/2024, Additional history exists DTaP,Tdap,and Td Vaccines (4 - Td or Tdap) 04/21/2028 04/21/2018, 01/09/2006, 01/09/2006 Pneumococcal vaccine (65+ years) Completed 03/03/2023, 06/28/2008 Fall Risk Screen (Annual) Completed 06/02/2024 IPV Vaccines Aged Out No longer eligi ble based on patient's age to complete this topic Medical Devices Implanted Type Area Production Metal Sprayer Device Identifier Shelf Expiration Date Model / Serial / Lot [employer] Rp Mkiii Tiunite 4.00mm Rp 4.00mm X 15.00mm- 011 Implanted:Qty: 1 on 07/01/2011 by Sonido Roblero D.D.S. Hardware e.g. pins/screws/r ods Mouth [employer] [id number] / / [id number] Description:Site #4 [employer] Rp Mkiii Tiunite 4.00mm Rp 4.00mm X 13.00mm- 011 Implanted:Qty: 1 on 07/01/2011 by Sonido Roblero D.D.S. Hardware e.g. pins/screws/r ods Mouth [employer] [id number] / / [id number] Description:Site #5 [employer] Rp Mkiii Tiunite 4.00mm Rp 4.00mm X 15.00mm- 011 Implanted:Qty: 1 on 07/01/2011 by Sonido Roblero D.D.SKatharina Hardware e.g. pins/screws/r ods Mouth [employer] [id number] / / [id number] Description:Site #7 [employer] Rp Mkiii Tiunite 4.00mm Rp 4.00mm X 15.00mm- 011 Implanted:Qty: 1 on 07/01/2011 by Sonido Roblero D.D.S. Hardware e.g. pins/screws/r ods Mouth [employer] [id number] / / [id number] Description:Site #8 Branka[employer]erk Rp Mkiii Tiunite 4.00mm Rp 4.00mm X 15.00mm- 011 Implanted:Qty: 1 on 07/01/2011 by Sonido Roblero D.D.S. Hardware e.g. pins/screws/r ods Mouth [employer] [id number] / / [id number] Description:Site #9 [employer] Rp Mkiii Tiunite 4.00mm Rp 4.00mm X 11.50mm- 011 Implanted:Qty: 1 on 07/01/2011 by Sonido Roblero D.D.S. Hardware e.g. pins/screws/r ods Mouth [employer] [id number] / / [id number] Description:Site #12 [employer] Rp Mkiii Tiunite 4.00mm Rp 4.00mm X 10.00mm- 011 Implanted:Qty: 1 on 07/01/2011 by Sonido Roblero D.D.S. Hardware e.g. pins/screws/r ods Mouth [employer] [id number] / / [id number] Description:Site #13 Procedures Procedure Name Priority Date/Time Associated Diagnosis Comments CREATININE WITH EGFR, S/P Routine 06/10/2024 9:27 AM DIRECT CARE SPECIALIST Medication Therapy Chcf Not Anticoagulant ALANINE AMINOTRANSFERASE (ALT), S/P Routine 06/10/2024 9:27 AM DIRECT CARE SPECIALIST Medication Therapy Chcf Not Anticoagulant ASPARTATE AMINOTRANSFERASE (AST), S/P Routine 06/10/2024 9:27 AM DIRECT CARE SPECIALIST Medication Therapy Chcf Not Anticoagulant CBC WITH DIFFERENTIAL, B Routine 06/10/2024 9:27 AM DIRECT CARE SPECIALIST Medication Therapy Teacher Not Anticoagulant DX HIP AND PELVIS LEFT 2-3 VIEWS RAD - Routine (most inpatients and all outpatients) 06/02/2024 10:30 AM DIRECT CARE SPECIALIST Arthritis Hip NM ARTHCS ASP/INJ MJR JT W US Routine 05/12/2024 10:00 AM CDT Bursitis Trochanteric Left NM ARTHCS ASP/INJ MJR JT W US Routine 04/22/2024 11:30 AM CDT Arthritis Hip Pain Hip Bilateral NM ARTHCS ASP/INJ MJR JT W US Routine 04/22/2024 11:30 AM CDT Arthritis Hip Pain Hip Bilateral PHYSICAL MEDICINE AND REHAB IMAGE EXAM Routine 04/22/2024 11:10 AM CDT BASIC METABOLIC PANEL, S/P Routine 12/31/2022 10:58 AM CDT Monitoring For Therapeutic Drug Therapy from Last 3 Months or Most Recently Relevant to Health Maintenance Results * (ABNORMAL) CBC with Differential, Blood (06/10/2024 9:27 AM DIRECT CARE SPECIALIST) [facility] Hemoglobin 14.5 13.2 - 16.6 g/dL 06/10/2024 9:36 AM DIRECT CARE SPECIALIST OWAT Hematocrit 42.5 38.3 - 48.6 % 06/10/2024 9:36 AM DIRECT CARE SPECIALIST OWAT Erythrocytes 4.48 4.35 - 5.65 x10(12)/L 06/10/2024 9:36 AM DIRECT CARE SPECIALIST OWAT MCV 94.9 78.2 - 97.9 fL 06/10/2024 9:36 AM DIRECT CARE SPECIALIST OWAT RBC Distrib Width 15.6(H) 11.8 - 14.5 % 06/10/2024 9:36 AM DIRECT CARE SPECIALIST OWAT Platelet Count 216 135 - 317 x10(9)/L 06/10/2024 9:36 AM DIRECT CARE SPECIALIST OWAT Leukocytes 6.2 3.4 - 9.6 x10(9)/L 06/10/2024 9:36 AM DIRECT CARE SPECIALIST OWAT Neutrophils 4.41 1.56 - 6.45 x10(9)/L 06/10/2024 9:36 AM DIRECT CARE SPECIALIST OWAT Lymphocytes 0.92(L) 0.95 - 3.07 x10(9)/L 06/10/2024 9:36 AM DIRECT CARE SPECIALIST OWAT Monocytes 0.65 0.26 - 0.81 x10(9)/L 06/10/2024 9:36 AM DIRECT CARE SPECIALIST OWAT Eosinophils 0.13 0.03 - 0.48 x10(9)/L 06/10/2024 9:36 AM DIRECT CARE SPECIALIST OWAT Basophils 0.06 0.01 - 0.08 x10(9)/L 06/10/2024 9:36 AM DIRECT CARE SPECIALIST OWAT Blood (Blood, Venous) 06/10/2024 9:27 AM DIRECT CARE SPECIALIST 06/10/2024 9:33 AM DIRECT CARE SPECIALIST us Sonido Pino P.A.-C., M.S. LAB BLOOD ADD-ON Final Result Performing Organization Address City/[facility]/ZIP Co de Phone Number [facility] [address] [address], [facility] in [place] [address], [place] [address] * ALT (Alanine Aminotransferase) (06/10/2024 9:27 AM DIRECT CARE SPECIALIST) Alanine Aminotransferase (ALT), P 10 7 - 55 U/L 06/10/2024 9:57 AM DIRECT CARE SPECIALIST OWAT Blood (Blood, Venous) 06/10/2024 9:27 AM DIRECT CARE SPECIALIST 06/10/2024 9:33 AM DIRECT CARE SPECIALIST us Sonido Pino P.A.-C., M.S. LAB BLOOD ADD-ON Final Result [facility] [address] [place] [address], [place] OWAT [facility] in [place] [address] [place] [address] * AST (Aspartate Aminotransferase) (06/10/2024 9:27 AM DIRECT CARE SPECIALIST) Aspartate Aminotransferase (AST), P 24 8 - 48 U/L 06/10/2024 9:57 AM DIRECT CARE SPECIALIST OWAT Blood (Blood, Venous) 06/10/2024 9:27 AM DIRECT CARE SPECIALIST 06/10/2024 9:33 AM DIRECT CARE SPECIALIST Sonido Pino P.A.-C., M.S. LAB BLOOD ADD-ON Final Result Performing Organization Address [facility] Co de Phone Number [facility] [address] [address], [facility] OWAT [facility] in [place] [address], [place] [address] * Creatinine with Estimated GFR (06/10/2024 9:27 AM DIRECT CARE SPECIALIST) Creatinine 1.04 0.74 - 1.35 mg/dL 06/10/2024 9:57 AM DIRECT CARE SPECIALIST OWAT Estimated GFR (eGFR) 71 >=60 mL/min/BSA 06/10/2024 9:57 AM DIRECT CARE SPECIALIST OWAT Comment: Estimated GFR calculated using the 2020 CKD_EPI creatinine equation. Blood (Blood, Venous) 06/10/2024 9:27 AM DIRECT CARE SPECIALIST 06/10/2024 9:33 AM DIRECT CARE SPECIALIST us Sonido Pino P.A.-C., M.S. LAB BLOOD ADD-ON Final Result Performing Organization Address [facility] Co de Phone Number [facility] [address] [place] [address], [place] OW[place] [facility] in [place] [address] [place] [address] * DX Hip And Pelvis Left 2-3 Views (06/02/2024 10:30 AM DIRECT CARE SPECIALIST) Anatomical Region Laterality Modality Lower Extremity, Pelvis, Hip , Musculoskeletal RST LOS, Musculoskeletal ARZ LOS, Muskuloskeletal FLA LOS Left Digit al Radiography Impressions 06/02/2024 10:34 AM DIRECT CARE SPECIALIST Comparison 03/12/2024. Unchanged moderate left hip joint osteoarthritis. Alignment normal. No acute fracture. Asphericity of the femoral head neck junctions can predispose to femoroacetabular impingement bilaterally. Narrative 06/02/2024 10:34 AM DIRECT CARE SPECIALIST EXAM: DX HIP AND PELVIS LEFT 2-3 VIEWS Procedure Note Azeem Bowden M.D. - 06/02/2024 EXAM: DX HIP AND PELVIS LEFT 2-3 VIEWS IMPRESSION: Comparison 03/12/2024. Unchanged moderate left hip joint osteoarthritis. Alignment normal. Noacute fracture. Asphericity of the femoral head neck junctions canpredispose to femoroacetabular impingement bilaterally. us Maximiliano Martinez M.D. IMG DIAGNOSTIC IMAGING P ROCEDURES Final Result * NM ARTHCS ASP/INJ MJR JT W US (05/12/2024 10:00 AM CDT) Only the most recent of3 resultswithin the time period is included. Narrative MMODAL - 05/12/2024 10:00 AM CDT Maximiliano Martinez M.D. 05/12/2024 9:52 AM Hip site - Left greater trochanteric bursa: injection only Performed by: Maximiliano Martinez M.D. Authorized by: Maximiliano Martinez M.D. Care team members present 1. Dulce Stallworth PROCEDURE DETAILS Indications: Left trochanteric bursitis and [...] instructions: ice area as needed for comfort Maximiliano Martinez M.D. PROCEDURE/MINOR SURGICAL ORDERABLES Final Result Performing Organization Address [facility] de Phone Number MMODAL NA * Non-Radiology Image-Physical Medicine And [...] NON RAD IMAGING PROCE DURES Final Result Performing Organization Address [facility] de Phone Number IIMS NA from Last 3 Months Additional Health Concerns Infection Onset Date Last Indicated Protective Environment 11/21/2022 Insurance MEDICARE [employer] Care Teams Sample Paster Relationship Specialty Start Date End Date Keven Montoya M.D. [address] [place] [address] [place] [id number] PCP - General Family Medicine 12/26/20
--- OUTSIDE RECORDS SUMMARY | 2024-06-28 13:55 | XMS_ITS | Encounter Summary ---
Author Organization [facility] Address [address] [place] [address] Care Team Providers Care Acting Professor Name Role Phone Keven Montoya M.D. Primary Care Provider [phone] Reason for Referral * Outpatient (Routine) - Closed Specialty Diagnoses / Procedures Referred By Contac t Referred To Contact Diagnoses Arthritis Hip Procedures DX Hip And Pelvis Left 2-3 Views Maximiliano Martinez M.D. [address] [place] [address] Phone: tel: fax: [facility] Region Referral ID Status Reason Start Date Expiration Date Visits Re quested Visits Authorized [id number] Closed 06/02/2024 06/02/2025 1 1 TERIA OR LUNCHROOM CHECKER * Outpatient (Routine) - Closed Specialty Diagnoses / Procedures Referred By Contac t Referred To Contact Orthopedic Surgery Diagnoses Arthritis Hip Maximiliano Martinez M.D. [address] [place] [phone] Phone: tel: fax: [facility] Region Referral ID Status Reason Start Date Expiration Date Visits Re quested Visits Authorized [id number] Closed 06/02/2024 12/02/2025 1 1 Scheduling Instructions Ortho internal referral panel order, imaging before Consult visit TERIA OR LUNCHROOM CHECKER * Physical Therapy (Routine) - Authorized Specialty Diagnoses / Procedures Referred By Contac t Referred To Contact Diagnoses Arthritis Hip Maximiliano Martinez M.D. [address] [phone] Phone: tel: fax: Referral ID Status Reason Start Date Expiration Date V isits Requested Visits Authorized [id number] Authorized Other 06/02/2024 12/02/2025 99 99 TERIA OR LUNCHROOM CHECKER Reason for Visit * Reason Comments Follow-up * Outpatient (Routine) - Closed Specialty Diagnoses / Procedures Referred By Contact Referred To Contact Physical Medicine and Rehabilitation Maximiliano Martinez M.D. [address] [phone] Phone: tel: fax: [facility] Referral ID Status Reason Start Date Expiration Date Visits Re quested Visits Authorized [id number] Closed 05/31/2024 11/30/2025 1 1 Encounter Details Date Type Department Care Team (Latest Contact Info) Description 06/02/2024 10:00 AM CAFETERIA OR LUNCHROOM CHECKER Office Visit Department of Physical Medicine and Rehabilitation in [place], [place] [address] [phone] Maximiliano Martinez M.D. [address] [phone] Arthritis Hip (Primary Dx); Pain Hip Left; Bursitis Trochanteric Bilateral Social History Tobacco Use Types Packs/Day Years [...] on file Legal Sex Male 4:20 AM CAFETERIA OR LUNCHROOM CHECKER Gender Identity Male 12/01/2017 1:25 PM CDT Sexual Orientation Straight 12/01/2017 1: 25 PM CDT documented as of this encounter Patient Instructions * Patient Instructions* Maximiliano Martinez M.D. - 06/02/2024 10:00 AM CAFETERIA OR LUNCHROOM CHECKER Images from the original note were not included. Patient Education Osteoarthritis in the Hip About the Hip Your hip is a joint that connects your thigh bone to your pelvis. Your groin area connects your lower abdomen to your upper thigh. Underneath your groin is your hip joint. You may hear the hip joint called a xkum-sep-aunoru joint. This is because the hip has two main parts that look and move like a ball in a socket. The medical names for these parts are called the femoral head and the acetabulum. See Figure 1. The femoral head is located at the top part of your thighbone, also called the femur. It is shaped like a ball. The acetabulum is part of your pelvis. It???s shaped like a socket and holds the femoral head. The hip is a major load-bearing joint in your body. This means it supports a lot of weight. To protect the hip joint, you have tissue called cartilage that covers the femoral head and acetabulum. If you have a problem with your hip, you are not alone. It is a common source of pain for many people. Problems within the hip joint tend to result in pain on the inside of your hip or your groin. Hip problems can happen because of: Age. Being overweight. Normal use over time. You also may hear this called wear and tear. An injury from sports or other physical activities. Muscle weakness. Arthritis that you inherited. Being born with hip dysplasia -- when the acetabulum doesn???t fully cover the femoral head. Osteoarthritis in the Hip Osteoarthritis is the most common form of arthritis. It is a disease that affects millions of people all over the world. Although it can damage any joint, the most common joints it affects are the spine, hands, hips and knees. For many people, osteoarthritis is caused by normal wear and tear over time. It happens when cartilage that protects and cushions the ends of your bones wears down. You may hear this called damage toyour articular joint cartilage. See an example of a hip joint damaged by osteoarthritis in Figure 2. Osteoarthritis is a disease that may get worse over time. And there is no cure for it. But symptomsoften can be managed. Some people find that if they stay active, keep a healthy weight and find a treatment that works for them, they are better able to manage symptoms caused by the disease. And they can improve their mobility and have less pain. Some people who have osteoarthritis in their hip have mild symptoms. Others may have symptoms that are more severe and affect their daily lives. For example, they find it hard to bend and tie a shoe.Or they find it difficult to take a walk. Symptoms may include pain or a feeling that the hip is stiff. People often have a feeling of a stiff hip in the morning or after they sit for a while. Thankfully, for most people, there are ways to treat symptoms of osteoarthritis. You are the most important member of your health care team. You are encouraged to speak up and take an active role in your care. You and your family are welcome to ask questions. Learn all you can about your condition and your recovery. Live Well Every Day to Protect Your Hip and Manage Symptoms of Osteoarthritis This information explains how you can take care of yourself and live well with osteoarthritis. You can learn how to protect your hip and lessen the symptoms you may have. Keep extra pounds off One of the best things you can do for your hips is to keep at a healthy weight. Every extra pound puts more strain on your hip joints. If you weigh more than you should, losing weight may lessen yourpain. Extra weight can make your osteoarthritis worse. Exercise Being active is important for your health. Because you have osteoarthritis, you may need to change how you are used to exercising. If you are used to high- impact activities, you may need to change tolow-impact exercise. High-impact activities include running, jumping and skiing. Changing to low-impact exercises may give your hip the relief it needs. Low-impact exercises include: Exercises in the water. Water exercises help take pressure off the joints while they still allow you to be active. Consider swimming or doing water aerobics. Cycling. Cycling can help build up your lower body strength and stability while opening your hips and increasing your blood flow. Yoga. Be sure to do only gentle yoga poses and movements that can???t cause more damage to your hipjoint. Leonardo chi. This is a gentle and graceful form of exercise to help with stress reduction. It helps youhave greater balance and flexibility. It improves muscle strength. And it can increase your energy,stamina and agility. Keep in mind that a sudden increase in activity can cause injuries or can cause your osteoarthritisto flare up. Slowly work your way up to harder exercise routines. Avoid sudden changes in how you exercise. The following are other things to keep in mind about your exercise. Warm up before you exercise Before you walk or do other low-impact exercises, warm up with five minutes or so of light activity. Maintain your strength Weak muscles can lead to hip injuries. You???ll benefit from building up your strength. Ask your health care provider or physical therapist about flexibility and strength exercises. Note: Do not do deep squats during your weight training. They can injure your hip. Stretch Tight muscles can cause an injury or make an injury worse. Gentle stretching is important, especially after you exercise. A physical therapist can guide you on what to do and how to do it. Try to stretch every day. Yoga, Pilates and leonadro chi all involve stretching. Get the rest you need Chronic symptoms can affect how you sleep. Your body needs restful sleep to work as it should. Lackof sleep can make you more easily irritated and less able to cope with pain and stress. You can use techniques such as guided imagery, deep breathing and muscle relaxation to help manage your pain and sleep problems. Eat a healthy diet A healthy diet that is rich in fruits, vegetables and whole grains can help you: Keep your energy up to exercise and be active. Manage your symptoms. Improve your sense of well-being. Keep off extra pounds. As you find a healthy diet that works for you, use these tips. Try a plant-based diet. Many experts recommend filling your plate with foods that grow from the ground. Fruits, vegetables, legumes, nuts and whole grains are packed with nutrition. Ask your health care provider for information about adding these foods to your diet. Choose foods that don???t cause inflammation. Examples include fresh fruits and vegetables, fish and olive oil. Turmeric has anti-inflammatory effects that also can be helpful. Meet with a health and fitness professor. To find a healthy diet, meet with a health and fitness professor. He or she can work withyou to find a healthy diet that you can manage. Be smoke-free Nicotine, carbon monoxide and other poisons in tobacco products lessen your blood flow. This can affect your pain and healing. It can be hard to quit smoking. If you or a family member is struggling to quit smoking, talk to your health care team. They are here to help. There are many resources and specialists who can help your home become smoke-free. Stay connected with your friends and family People with a solid support system generally: [place] better with chronic pain and other symptoms. Are less likely to become depressed. Are more active and independent. Have stronger immune systems and recover faster from illness. Have lower blood pressure. Live longer. Continue to take part in hobbies you enjoy and are able to do Everyone has a bad day now and then. A difficult day may involve increased pain or symptoms. There may be days you want to stay home and do nothing. But this lack of activity only gives you more timeto focus on your symptoms. Take a walk, read something enjoyable or visit a friend. Take your attention away from symptoms. Use humor as a distraction. For example, rent a funny movie, read the comics or call a friend who has a good sense of humor. Other things to keep in mind Your physical health can have a direct impact on your mental health. Denial, anger and frustration are common with a chronic illness. Set up a support system that can help you. On bad days, reach outto people who can help. At times, you may need additional help with your emotions. Professionals such as therapists or behavior psychologists may be able to help. They can help you develop coping skills, including ways to relax. Join a support group. Share experiences and feelings with other people. The [employer] radha national support group. Or ask your health care team what support groups are available in your community. Treatment for Osteoarthritis in the Hip Every person is different. The treatment plan you and your health care team create depends on many things. These include your symptoms, how severe your osteoarthritis is, your activity level and youroverall health. They also include your lifestyle and your treatment needs. If your treatment plan does not work well for you, be sure to contact your health care provider. As part of your treatment plan, your health care provider may want you to try one or more of the following treatments. Take supplements for osteoarthritis Glucosamine and chondroitin are natural compounds found in cartilage. Used together, these supplements can help treat your symptoms of osteoarthritis, such as pain and inflammation. Be sure to follow directions that come with your supplements. Always let your health care provider know what supplements you take. Do not take glucosamine and chondroitin if you take warfarin medication, if you have a shellfish allergy, or if you have diabetes that is hard to manage. Use cold therapy Cold therapy, such as applying an ice pack, may dull the sensation of pain. Cold also has a numbingeffect and can lessen swelling. Use a thin towel between the ice pack and your skin. Apply ice for 20 to 30 minutes several times a day. Try heat therapy If you plan to be physically active, heat can help loosen your hip joint before your activity. Heatalso relaxes tissue and other parts of the hip and improves blood flow. Try other walking aids Using a walker or holding a cane or walking stick in the hand opposite of your injured hip may havemany of the same benefits as wearing a hip brace. Be smart about the shoes you wear Make sure your shoes fit well and provide good shock absorption. Having the right shoes can take pressure off your damaged hip. Good arch support also can help your hip. Get an injection of corticosteroid Your health care provider may suggest injecting a corticosteroid into your hip joint. You may hear this medication called cortisone, cortisol or steroid. The injection may help lessen inflammation and give some pain relief for 2 weeks to 6 months. The usual limit is three injections of a corticosteroid a year. If you have concerns about your steroid injection not lasting long enough, talk with your health care provider. Manage your symptoms with medication Your health care team is committed to helping you manage your pain safely so you can live your bestlife. Managing pain does not mean you will feel no pain at all. No medication or activity takes pain away completely. And there are other ways to manage pain than medication. These include taking a walk, doing deep breathing exercises and changing positions. Symptoms may come and go. There may be times when the disease is worse. These times are called flares. Other times, inflammation and pain may fade or disappear. Your health care provider may recommend taking medication only when your pain and inflammation flare. The following are possible medication treatments for osteoarthritis. Talk to your health care provider about what may work best for you. NSAIDs to treat inflammation and ease pain Nonsteroidal anti-inflammatory drugs, also called NSAIDs, can lessen both pain and inflammation. You do not need a prescription for NSAIDs. Your provider may want you to take NSAIDs only when your pain and inflammation flare. This is because NSAIDs can cause kidney damage and heart problems if you take them for long periods of time. Types of NSAIDs include ibuprofen, such as Advil and Motrin IB. And they include naproxen sodium, such as Aleve or a store brand that is equivalent. Stronger NSAIDs are given by prescription. Side effects may include upset stomach and trouble with digestion. Some common pain relievers can affect blood thinning. Examples include aspirin and products that contain aspirin. They include ibuprofen, such as Advil or Motrin IB. They also include naproxen, such as Aleve or Naprosyn. Ask your health care provider about what you should take to manage your pain. Find out when and how you should take NSAIDs. Acetaminophen to lessen pain If you do not take a blood-thinning medication or prescribed pain medication, you may take extra-strength acetaminophen or Tylenol Extra Strength to help treat your hip pain. Talk to your health care provider about the dose you should take and the schedule you should follow. If you take more than the recommended dose of acetaminophen, you may damage your liver. Explore regenerative medicine treatments Regenerative medicine relies on the body???s ability to heal itself. There are different types of treatment options for hip osteoarthritis. They are not a cure for osteoarthritis. But some people mayhave fewer side effects from hip osteoarthritis after a regenerative medicine treatment. Keep in mind, regenerative medicine treatments are procedures that also have risks of side effects and complications. The procedures are usually not paid for by insurance plans. They can be expensive. Ask a member of your care team any questions you may have about regenerative medicine and possiblecosts. Try alternative medicine treatments You also may hear alternative medicine called complimentary medicine or integrative medicine. It???s an approach to medicine that considers the whole person -- body, mind and spirit. Alternative medicine practices can be used alongside, not instead of, traditional medicine. Acupuncture is an alternative medicine treatment. It is commonly used to help treat osteoarthritis in the hip. Very thin needles are placed into your skin around your hip. Acupuncture does not give relief over a long time. Most people whose side effects are helped by acupuncture have results that last a short time. Talk with your health care provider about radiofrequency nerve ablation Radiofrequency nerve ablation uses electrical impulses to heat up, or ablate, a small area of nervefibers. This procedure can block or interrupt some of the nerves that carry pain signals from the treated area. Radiofrequency nerve ablation is not a common way to treat osteoarthritis in the hip, and it doesn???t work for everyone. Most people who try it need more than one treatment before they see results. For those who do feel pain relief, the relief usually lasts about 3 to 12 months. How long it lastsis different for everyone. A small number of people get little to no pain relief. Insurance does not always pay for radiofrequency nerve ablation. If you are considering this treatment, be sure to check with your insurance company about payment. Costs are high for radiofrequency nerve ablation. Learn about surgery options Surgery may be an option when other treatments do not work well for you. The following are types ofsurgery to treat severe osteoarthritis in the hip. Total hip replacement Total hip replacement surgery also is called total hip arthroplasty. This means that your hip jointis surgically replaced. During the operation, your surgeon removes the damaged part of your hip. It is replaced with artificial parts, called components or prostheses. Your surgeon chooses the parts that are best for you. Figure 3 shows you what the artificial parts look like and where they are located in the hip. Girdlestone procedure A Girdlestone procedure removes the femoral head so the acetabulum can fit better. You also may hear it called resectional arthroplasty. It often is considered only when a person has other health problems or is not a candidate for a hip replacement. Or it may be considered for a person who already has had a hip replacement or whose movement is very limited. No matter how long you have lived with symptoms, your care team is here to help. Be sure to ask members for extra support when you are struggling to cope. Get your questions answered. When you betterunderstand your situation and your choices, you gain confidence. That can bring you relief from worry. This material is for your education and information only. This content does not replace medical advice, diagnosis or treatment. New medical research may change this information. If you have questionsabout a medical condition, always talk with your health care provider. ?? 2020 [facility] ([facility]). All rights reserved. [id number] TERIA OR LUNCHROOM CHECKER documented in this encounter Consult Notes * Maximiliano Martinez M.D. - 06/02/2024 10:00 AM CST SUBJECTIVE CHIEF COMPLAINT/REASON FOR VISIT Maximiliano Martinez M.D. sent this patient for consultation regarding evaluation and management ofleft hip pain HISTORY OF PRESENT ILLNESS Mr. Victoriano Mccullough is a 83 y.o. man with history of rheumatoid arthritis on Remicade who presents for evaluation of chronic left anterior and posterior hip pain. The patient was initially referred to me for completion of hip joint injections back in March for which he did have positive therapeutic responses. He was subsequently seen for completion of a left trochanteric bursa injection in April which has completely eliminated his lateral hip pain. Unfortunately, he has had recurrence of his left anterior and posterior hip pain over the past 10 days, noting that the hip joint injection only seem to last for 1 month. He is not having significant difficulty ambulating due to pain. He describes the pain as constant achy pain, becoming sharp/stabbing with ipsilateral weight-bearing, ranging between 2-9/10. Pain is made worse with standing, transferring and lying on his left side.It improves with changing position and rest. He has tried using ibuprofen which has not been helpful. He has not received any physical therapy or trial use of a gait aid. He does feel generally weaker in his left lower limb in association with the pain. He denies any episodes of mechanical catching, locking or buckling of the hip. Pertinent negatives on review of systems include; bowel or bladderdysfunction or incontinence, numbness or tingling, fevers, chills or recent illness, rash or skin change, and weight loss. REVIEW OF SYSTEMS All systems were reviewed and were negative except those mentioned in the history of present illness section of this note. PATIENT HISTORY The following portions of the patient's history were reviewed and updated as appropriate: allergies, current medications, family history, medical history, social history, surgical history, and problem list. OBJECTIVE PHYSICAL EXAM NEUROLOGIC: Gait: Notably antalgic on the left. Strength: All major muscle groups of the proximal lower extremities have gossly normal and symmetric muscle strength, bulk, and tone. Special Tests: Negative straight leg raise sign on the left. MUSCULOSKELETAL: Inspection: No gross axial or appendicular skeletal deformities and no visible muscle bulk asymmetry / atrophy through the affected region. Passive range of motion of the left hip reveals mechanically reduced flexion and external rotation which does exacerbate his groin symptoms atend range. Tenderness palpation deep in the left gluteal region, piriformis level. Positive PUJA, FAIR hip scour maneuver for reproduction of anterior and posterior hip pain. DIAGNOSTICS IMAGING STUDIES: I independently reviewed these images and my independent interpretation of findings (which are consistent with the Radiologist???s report) are as follows: DX Hips and Pelvis Bilateral 3-4 Views Result Date: 03/12/2024 Advanced bilateral hip hypertrophic osteoarthritis greater on the right. Moderate hypertrophic osteoarthritis SI joints with small areas of bridging posterior inferior osteophytes. Lower lumbar disk disease and facet arthritis. IMPRESSION, REPORT & PLAN #1 ASSESSMENT / PLAN #1 Left Hip Osteoarthritis, Symptomatic #2 Right Hip Osteoarthritis, Improved Following Corticosteroid Injection #3 Bilateral Trochanteric Bursitis, Improved Following Corticosteroid Injections #4 Antalgic Gait #5 Rheumatoid Arthritis On Remicade Mr. Victoriano Mccullough presents with recurrent left anterior and posterior hip pain after experiencing approximately 1 month of significant relief following left hip joint injection. He has had more sustained relief following right hip joint injection and bilateral trochanteric bursa injections. He presents with notable gait antalgia and positive provocative findings for hip joint pain. I did recommend a course of physical therapy and trial with use of a cane on the right for which prescriptions were provided. Patient was also interested in meeting with orthopedic surgeon regarding potential left total hip arthroplasty which has been ordered. I will plan to follow up with the patient following completion of Orthopedic surgery consult and physical therapy, if needed. Following our discussion the patient expressed understanding and agreement with plan. EDUCATION We discussed the diagnosis and treatment plan in detail. Several appropriate questions were raised and were discussed thoroughly prior to dismissal. The patient expressed understanding of the contentand was in agreement with the plan. No apparent learning barriers were identified; learning preferences include listening. Signed by: Maximiliano Martinez M.D. 06/02/2024 10:10 AM CAFETERIA OR LUNCHROOM CHECKER TERIA OR LUNCHROOM CHECKER documented in this encounter Plan of Treatment Upcoming Encounters Date Type Department Care Team (Late st Contact Info) Description 09/09/2024 10:20 AM CAFETERIA OR LUNCHROOM CHECKER Appointment Department of Laboratory Medicine in [place], [place] [address] [place] [phone] Sonido Pino P.A.-C., M.S. [address] [place] [address] Scheduled Referrals Name Type Priority Associated Diagnoses Order Schedule Orthopedic Surgery - Hip non surgical consult (clinic) Outpatient Referral Routine Arthritis Hip Expected: 06/02/2024 (Approximate), Expires: 09/02/2025 documented as of this encounter Results * DX Hip And Pelvis Left 2-3 Views (06/02/2024 10:30 AM CAFETERIA OR LUNCHROOM CHECKER) Anatomical Region Laterality Modality Lower Extremity, Pelvis, Hip , Musculoskeletal RST LOS, Musculoskeletal ARZ LOS, Muskuloskeletal FLA LOS Left Digit al Radiography Impressions 06/02/2024 10:34 AM CAFETERIA OR LUNCHROOM CHECKER Comparison 03/12/2024. Unchanged moderate left hip joint osteoarthritis. Alignment normal. No acute fracture. Asphericity of the femoral head neck junctions can predispose to femoroacetabular impingement bilaterally. Narrative 06/02/2024 10:34 AM CAFETERIA OR LUNCHROOM CHECKER EXAM: DX HIP AND PELVIS LEFT 2-3 [...] in this encounter Visit Diagnoses Diagnosis Arthritis Hip- Primary Pain Hip Left Bursitis Trochanteric Bilateral Arthritis Hip documented in this encounter Additional Health Concerns Infection Onset Date Last Indicated Resolved Time Protective Environment 11/21/2022 11/21/2022 documented as of this encounter Care Teams Acting Professor Relationship Specialty Start Date End Date Keven Montoya M.D. [address] [place] [address] [place] [address] PCP - General Family Medicine 12/26/20 documented as of this encounter
--- OUTSIDE RECORDS SUMMARY | 2024-06-28 13:55 | XMS_ITS | Encounter Summary ---
Author Organization [facility] Address [address] [place] [address] Care Team Providers Care Gravure Press Operator Name Role Phone Keven Montoya M.D. Primary Care Provider [phone] Reason for Referral * Outpatient (Routine) - Authorized Specialty Diagnoses / Procedures Referred By Contsaul t Referred To Contact Keven Montoya M.D. [address] [place] [address] Phone: tel: fax: [facility] Region Referral ID Status Reason Start Date Expiration Date V isits Requested Visits Authorized [id number] Authorized 06/01/2024 12/01/2025 1 1 Scheduling Instructions Nurse AWV Do not schedule prior to due date to ensure insurance coverage Visit: Medicare Annual Wellness Never done. O OPERATIONS AGENT Encounter Details Date Type Department Care Team (Late st Contact Info) Description 06/01/2024 Orders Only [facility] MNT Keven Montoya M.D. [address] [place] [address] Social History Tobacco Use Types Packs/Day Years [...] on file Legal Sex Male 4:20 AM CARGO OPERATIONS AGENT Gender Identity Male 12/01/2017 1:25 PM CDT Sexual Orientation Straight 12/01/2017 1: 25 PM CDT documented as of this encounter Plan of Treatment Upcoming Encounters Date Type Department Care Team (Late st Contact Info) Description 09/09/2024 10:20 AM CARGO OPERATIONS AGENT Appointment Department of Laboratory Medicine in [place], [place] [address] [place] [address] Sonido Pino P.A.-C., M.S. [address] [place] [address] Scheduled Referrals Name Type Priority Associated Diagnoses Orde r Schedule Primary Care nurse visit (clinic) - [facility] Region; Medicare Annual Wellness Outpatient Referral Routine Expected: 06/29/2024, Expires: 11/28/2024 documented as of this encounter Visit Diagnoses Not on filedocumented in this encounter Additional Health Concerns Infection Onset Date Last Indicated Resolved Time Protective Environment 11/21/2022 11/21/2022 documented as of this encounter Care Teams Gravure Press Operator Relationship Specialty Start Date End Date Keven Montoya M.D. [address] [place] [address] PCP - General Family Medicine 12/26/20 documented as of this encounter
--- OUTSIDE RECORDS SUMMARY | 2024-06-28 13:55 | XMS_ITS | Referral Summary ---
Author Organization [facility] Address [address] [place] [address] Care Team Providers Care Public Safety Officer Name Role Phone No Ref-Primary, Physician Primary [...] on file Legal Sex Male 4:00 AM COOPER HELPER Gender Identity Not on file Sexual Orientation Not on file Last Filed Vital Signs Vital Sign Reading Time Taken Comments Blood Pressure 140/80 08/29/2017 8:18 PM COOPER HELPER Pulse 90 08/29/2017 8:18 PM COOPER HELPER Temperature 36.4 C (97.6 F) 08/29/2017 8:18 PM COOPER HELPER Respiratory Rate 18 08/29/2017 8:18 PM COOPER HELPER Oxygen Saturation 90% 08/29/2017 7:10 PM COOPER HELPER Inhaled Oxygen Concentration - - Weight - - Height - - Body Mass Index - - Plan of Treatment Not on file Insurance MEDICARE Care Teams Public Safety Officer Relationship Specialty Start Date End Date No Ref-Primary, Physician PCP - General 08/29/17
--- OUTSIDE RECORDS SUMMARY | 2024-06-28 13:56 | XMS_ITS | Encounter Summary ---
Author Organization [facility] Address [address] [place] [address] Care Team Providers Care Manager Fixed Income Name Role Phone Keven Montoya M.D. Primary Care Provider Encounter Details Date Type Department Care Team (Late st Contact Info) Description 04/09/2024 Orders Only Department of Family Medicine, [facility], in [place], [place] [address] [place] [phone] Keven Montoya M.D. [address] [place] [address] Arthritis Hip (Primary Dx) Social History Tobacco Use Types Packs/Day Years [...] on file Legal Sex Male 4:20 AM BRIMMING MACHINE OPERATOR Gender Identity Male 12/01/2017 1:25 PM CDT Sexual Orientation Straight 12/01/2017 1: 25 PM CDT documented as of this encounter Plan of Treatment Upcoming Encounters Date Type Department Care Team (Late st Contact Info) Description 09/09/2024 10:20 AM BRIMMING MACHINE OPERATOR Appointment Department of Laboratory Medicine in [place], [place] [address] [place] [address] Sonido Pino P.A.-C., M.S. [address] [place] [address] documented as of this encounter Visit Diagnoses Diagnosis Arthritis Hip- Primary documented in this encounter Additional Health Concerns Infection Onset Date Last Indicated Resolved Time Protective Environment 11/21/2022 11/21/2022 documented as of this encounter Care Teams Manager Fixed Income Relationship Specialty Start Date End Date Keven Montoya M.D. [address] [place] [address] PCP - General Family Medicine 12/26/20 documented as of this encounter
--- OUTSIDE RECORDS SUMMARY | 2024-06-28 13:56 | XMS_ITS | Encounter Summary ---
Author Organization [facility] Address [address] [place] [address] Care Team Providers Care Miller Apprentice Name Role Phone Keven Montoya M.D. Primary Care Provider [phone] Reason for Referral * Outpatient (Routine) - Closed Specialty Diagnoses / Procedures Referred By Contac t Referred To Contact Diagnoses Arthritis Hip Procedures PMR Peripheral injection/USGI (Procedure Only) Maximiliano Martinez M.D. [address] [place] [address] Phone: tel: fax: [facility] Referral ID Status Reason Start Date Expiration Date Visits Re quested Visits Authorized [id number] Closed 04/14/2024 04/14/2025 1 1 Encounter Details Date Type Department Care Team (Late st Contact Info) Description 04/14/2024 Orders Only Department of Physical Medicine and Rehabilitation in [place], [place] [address] [place] [address] Maximiliano Martinez M.D. [address] [place] [address] Arthritis Hip (Primary Dx) Social History Tobacco [...] on file Legal Sex Male 4:20 AM GENERAL MANAGER FOOD Gender Identity Male 12/01/2017 1:25 PM CDT Sexual Orientation Straight 12/01/2017 1: 25 PM CDT documented as of this encounter Plan of Treatment Upcoming Encounters Date Type Department Care Team (Late st Contact Info) Description 09/09/2024 10:20 AM GENERAL MANAGER FOOD Appointment Department of Laboratory Medicine in [address] [phone] Sonido Pino P.A.-C., M.S. [address] [place] [address] documented as of this encounter Results * [place] ARTHCS ASP/INJ MJR JT W US (04/22/2024 11:30 AM CDT) Narrative MMODAL - 04/22/2024 11:30 AM CDT Maximiliano Martinez M.D. 04/22/2024 12:37 PM Hip site - R hip joint: injection only Performed by: Maximiliano Martinez M.D. Authorized by: Maximiliano Martinez M.D. Care team members present 1. Dulce Stallworth PROCEDURE DETAILS Indications: Right hip joint pain Procedure Location hip Hip site - R hip joint Site prep: patient was prepped and draped in usual sterile fashion Patient position: supine Procedural approach: anterior Procedure performed: injection only Needle gauge: 22 G, length: 3.5 in Ultrasound image guidance used to localize target, identify at risk structures, and dynamically used to direct therapy to the target. Image(s) acquired and saved. Pre-procedure image guidance used to localize target and identify at risk structures, and plan approach and site was marked using indelible marker Probe: convex low/mid-frequency Needle approach: distal to proximal Ultrasound visualization: in-plane Procedural Medication The following medications were administered at the target site(s) Local anesthetic: 2 mL lidocaine 10 mg/mL (1 %); 1 mL lidocaine 20 mg/mL; 1 mL ROPivacaine (PF) 2 mg/mL (0.2 %) Corticosteroid: 40 mg methylPREDNISolone acetate 40 mg/mL [...] DETAILS Procedure purpose: diagnostic and therapeutic Indications: Right hip joint pain Appropriate hand hygiene, gown, cap, mask, protective eyewear, sterile gloves, skin preparation, sterile drape, and strict aseptic technique were utilized as applicable for the procedure. Site preparation: chlorhexidine SEDATION / ANESTHESIA Anesthesia method: pre-procedure local infiltration POST-PROCEDURE DETAILS Procedure completed successfully: yes Complications: no apparent complications Post-procedure instructions: avoid strenuous activity for 2 days and avoid submersion of procedure site for 24 hours Discharge instructions: medications and side effects and ice area as needed for comfort us Maximiliano Martinez M.D. PROCEDURE/MINOR SURGICAL ORDERABLES Final Result MMODAL NA documented in this encounter Visit Diagnoses Diagnosis Arthritis Hip- Primary Pain Hip Bilateral- Primary Arthritis Hip documented in this encounter Additional Health Concerns Infection Onset Date Last Indicated Resolved Time Protective Environment 11/21/2022 11/21/2022 documented as of this encounter Care Teams Miller Apprentice Relationship Specialty Start Date End Date Keven Montoya M.D. [address] [place] [address] [place] [address] PCP - General Family Medicine 12/26/20 documented as of this encounter
--- OUTSIDE RECORDS SUMMARY | 2024-06-28 13:56 | XMS_ITS | Encounter Summary ---
Author Organization [facility] Address [address] [place] [address] Care Team Providers Care Auditor Supervisor Name Role Phone Keven Montoya M.D. Primary Care Provider Reason for Visit * Reason Comments Med Refill Encounter Details Date Type Department Care Team (Late st Contact Info) Description 03/01/2024 Refill Division of Rheumatology in [place], [place] [address] [place] [phone] Sonido Pino P.A.-C., M.S. [address] [place] [address] Med Refill Social History Tobacco Use Types Packs/Day Years [...] on file Legal Sex Male 4:20 AM ELECTRICAL MAINTENANCE MAN Gender Identity Male 12/01/2017 1:25 PM CDT Sexual Orientation Straight 12/01/2017 1: 25 PM CDT documented as of this encounter Miscellaneous Notes * Telephone Encounter - Davin Jean Baptiste R.N. - 03/12/2024 8:25 AM CDT Has rheum appt at 0845 documented in this encounter Plan of Treatment Upcoming Encounters Date Type Department Care Team (Late st Contact Info) Description 09/09/2024 10:20 AM ELECTRICAL MAINTENANCE MAN Appointment Department of Laboratory Medicine in [place], [place] [address] [place] [address] Sonido Pino P.A.-C., M.S. [address] [place] [address] documented as of this encounter Visit Diagnoses Diagnosis Arthritis Rheumatoid (HCC) documented in this encounter Additional Health Concerns Infection Onset Date Last Indicated Resolved Time Protective Environment 11/21/2022 11/21/2022 documented as of this encounter Care Teams Auditor Supervisor Relationship Specialty Start Date End Date Keven Montoya M.D. [address] [place] [address] PCP - General Family Medicine 12/26/20 documented as of this encounter
--- OUTSIDE RECORDS SUMMARY | 2024-06-28 13:56 | XMS_ITS | Encounter Summary ---
Author Organization [facility] Address [address] [place] [address] Care Team Providers Care Operations Intelligence Name Role Phone Keven Montoya M.D. Primary Care Provider Reason for Visit * Reason Onset Date Comments Order Request 04/14/2024 Encounter Details Date Type Department Care Team (Late st Contact Info) Description 04/14/2024 Clinical Communication Department of Family Medicine, [facility], in [place], [place] [address] [place] [phone] Keven Montoya M.D. [address] [place] [phone] Order Request Social History Tobacco Use Types Packs/Day Years [...] on file Legal Sex Male 4:20 AM DOG CONTROL OFFICER Gender Identity Male 12/01/2017 1:25 PM CDT Sexual Orientation Straight 12/01/2017 1: 25 PM CDT documented as of this encounter Miscellaneous Notes * Telephone Encounter - Cecilia Gregorio - 04/14/2024 11:50 AM CDT Looking into. Order has been sent to PMR to triage documented in this encounter Plan of Treatment Upcoming Encounters Date Type Department Care Team (Late st Contact Info) Description 09/09/2024 10:20 AM DOG CONTROL OFFICER Appointment Department of Laboratory Medicine in [place], [place] [address] [place] [address] Sonido Pino P.A.-C., M.S. [address] [place] [address] documented as of this encounter Visit Diagnoses Not on filedocumented in this encounter Additional Health Concerns Infection Onset Date Last Indicated Resolved Time Protective Environment 11/21/2022 11/21/2022 documented as of this encounter Care Teams Operations Intelligence Relationship Specialty Start Date End Date Keven Montoya M.D. NPSalazar: [phone] [address] [place] [address] PCP - General Family Medicine 12/26/20 documented as of this encounter
--- OUTSIDE RECORDS SUMMARY | 2024-06-28 13:56 | XMS_ITS | Encounter Summary ---
Author Organization [facility] Address [address] [place] [address] Care Team Providers Care Woodyard Crane Operator Name Role Phone Keven Montoya M.D. Primary Care Provider [phone] Encounter Details Date Type Department Care Team (Late st Contact Info) Description 04/02/2024 Clinical Communication Department of Orthopedic Surgery in [place], [place] [address] [address] Juan Manuel Mendez M.D. [address] [address] Social History Tobacco Use Types Packs/Day Years [...] on file Legal Sex Male 4:20 AM TELESCOPE MAINTENANCE Gender Identity Male 12/01/2017 1:25 PM CDT Sexual Orientation Straight 12/01/2017 1: 25 PM CDT documented as of this encounter Miscellaneous Notes * Telephone Encounter - Lupe Romero R.N. - 04/02/2024 3:48 PM CDT Called patient at the request of Dr. Mendez. Patient is scheduled with Dr. Mendez on 04/07 forbilateral hip pain and wanting an injection. Dr. Mendez is recommending patient have cortisone injections under fluoroscopy. Patient's primary care provider should order these injections. documented in this encounter Plan of Treatment Upcoming Encounters Date Type Department Care Team (Late st Contact Info) Description 09/09/2024 10:20 AM TELESCOPE MAINTENANCE Appointment Department of Laboratory Medicine in [place], [place] [address] [place] [phone] Sonido Pino P.A.-C., M.S. [address] [place] [address] documented as of this encounter Visit Diagnoses Diagnosis Arthritis Hip- Primary documented in this encounter Additional Health Concerns Infection Onset Date Last Indicated Resolved Time Protective Environment 11/21/2022 11/21/2022 documented as of this encounter Care Teams Woodyard Crane Operator Relationship Specialty Start Date End Date Keven Montoya M.D. [address] [place] [address] PCP - General Family Medicine 12/26/20 documented as of this encounter
--- OUTSIDE RECORDS SUMMARY | 2024-06-28 13:56 | XMS_ITS | Encounter Summary ---
Author Organization [facility] Address [address] [place] [address] Care Team Providers Care Commodity Industry Analyst Name Role Phone Keven Montoya M.D. Primary Care Provider [phone] Encounter Details Date Type Department Care Team (Late st Contact Info) Description 09/29/2002 Historical Ophthalmology RST OPH Joe Liriano M.D. Social History Tobacco Use Types Packs/Day Years Used Date Smoking Tobacco: Never Assessed Sex and Gender Information Value Date Recorded Sex Assigned at Not on file Legal Sex Male 4:20 AM CONNECTION WORKER Gender Identity Male 12/01/2017 1:25 PM CDT Sexual Orientation Straight 12/01/2017 1: 25 PM CDT documented as of this encounter Progress Notes * Joe Liriano M.D. - 09/29/2002 12:00 AM CST Eye General CHIEF COMPLAINT general examination HISTORY OF PRESENT ILLNESS Patient denies vision changes or problems. Denies ocular discomfort, has old small floaters, but denies flashes. IMPRESSION / REPORT / PLAN #1 Myopia, presbyopia #2 No signs of plaquenil toxicity See yearly DIAGNOSIS #1 Myopia, presbyopia #2 No signs of plaquenil toxicity CDM Reports - EYEGEN Id: [id number] Status: Fnl documented in this encounter Plan of Treatment Upcoming Encounters Date Type Department Care Team (Late st Contact Info) Description 09/09/2024 10:20 AM CONNECTION WORKER Appointment Department of Laboratory Medicine in [place], [place] [address] [place] [address] Sonido Pino P.A.-C., M.S. [address] [place] [address] documented as of this encounter Visit Diagnoses Not on filedocumented in this encounter Additional Health Concerns Infection Onset Date Last Indicated Resolved Time Protective Environment 11/21/2022 11/21/2022 documented as of this encounter Care Teams Commodity Industry Analyst Relationship Specialty Start Date End Date Keven Montoya M.D. [address] [place] [address] PCP - General Family Medicine 12/26/20 documented as of this encounter
--- OUTSIDE RECORDS SUMMARY | 2024-06-28 13:56 | XMS_ITS | Encounter Summary ---
Author Organization [facility] Address [address] [place] [address] Care Team Providers Care Director Emergency Services Name Role Phone Keven Montoya M.D. Primary Care Provider Encounter Details Date Type Department Care Team (Late st Contact Info) Description 03/12/2024 Clinical Communication Division of Rheumatology in [place], [place] [address] [place] [address] Urmila Smith RKatharinaNKatharina [address] [place] [address] Social History Tobacco Use Types Packs/Day Years [...] on file Legal Sex Male 4:20 AM DENTAL OFFICE COORDINATOR Gender Identity Male 12/01/2017 1:25 PM CDT Sexual Orientation Straight 12/01/2017 1: 25 PM CDT documented as of this encounter Miscellaneous Notes * Telephone Encounter - Jaswinder Mclain RJuwan - 03/30/2024 1:27 PM CDT Information Discussed Message relayed to Victoriano. He does have an appointment with orthopedics 04/07/24 for his hip. We agreed to wait for this to see what they say. Victoriano is agreeable to plan. PLAN Disposition/Recommendation: recommended continue engagement in self-management activities Information/Education: patient/caller able to teach back Caller agreeable to plan of care: yes The following references were used: nursing clinical judgement * Telephone Encounter - Urmila Smith R.N. - 03/18/2024 11:41 AM CDT SUBJECTIVE CHIEF COMPLAINT / REASON FOR CALL No chief complaint on file. PLAN The following information was provided: Relayed message from Sonido Pino P.A.-C., M.S. Patient reported he was up in the hospital as his is having some serious health issues. He would like to do the injection, but will need to call and schedule when things have settled down. He also asked in something more permanent can be injected into his hip like when he had his knee done in [facility] rthopedics. I can only locate a note from 11/26/23 at [facility] for a Depo-medrol. Information/Education: patient/caller able to teach back The following references were used: nursing clinical judgement * Telephone Encounter - Urmila Smith R.N. - 03/12/2024 12:19 PM CDT Results message pt Christiano Pino PA-C secure chat Patient does not have online portal count, could you please contact him via his phone and let him know that his hip x-rays do show a lot of osteoarthritis and if he wishes, we can move forward with aultrasound-guided injection of cortisone into the hip or if he wishes to observe for the time beingthat would be fine as well. Please let me know what he decides in terms of moving forward with an in jection. documented in this encounter Plan of Treatment Upcoming Encounters Date Type Department Care Team (Late st Contact Info) Description 09/09/2024 10:20 AM DENTAL OFFICE COORDINATOR Appointment Department of Laboratory Medicine in [place], [place] [address] [place] [address] Sonido Pino P.A.-C., M.S. [address] [place] [address] documented as of this encounter Visit Diagnoses Not on filedocumented in this encounter Additional Health Concerns Infection Onset Date Last Indicated Resolved Time Protective Environment 11/21/2022 11/21/2022 documented as of this encounter Care Teams Director Emergency Services Relationship Specialty Start Date End Date Keven Montoya M.D. [address] [place] [address] PCP - General Family Medicine 12/26/20 documented as of this encounter
--- OUTSIDE RECORDS SUMMARY | 2024-06-28 13:56 | XMS_ITS | Encounter Summary ---
Author Organization [facility] Address [address] [place] [address] Care Team Providers Care Linemarker Name Role Phone Keven Montoya M.D. Primary Care Provider [phone] Reason for Referral * Outpatient (Routine) - Closed Specialty Diagnoses / Procedures Referred By Contact Referred To Contact Physical Medicine and Rehabilitation Maximiliano Martinez M.D. [address] [place] [address] Phone: tel: fax: [facility] Region Referral ID Status Reason Start Date Expiration Date Visits Re quested Visits Authorized [id number] Closed 05/31/2024 11/30/2025 1 1 GER JAVA Reason for Visit * Reason Onset Date Comments Follow-up 05/28/2024 Encounter Details Date Type Department Care Team (Latest Contact Info) Description 05/28/2024 Clinical Communication Department of Physical Medicine and Rehabilitation in [place], [place] [address] [place] [address] Maximiliano Martinez M.D. [address] [place] [address] Follow-up Social History Tobacco Use Types Packs/Day Years [...] on file Legal Sex Male 4:20 AM MANAGER JAVA Gender Identity Male 12/01/2017 1:25 PM CDT Sexual Orientation Straight 12/01/2017 1: 25 PM CDT documented as of this encounter Plan of Treatment Upcoming Encounters Date Type Department Care Team (Late st Contact Info) Description 09/09/2024 10:20 AM MANAGER JAVA Appointment Department of Laboratory Medicine in [place], [place] [address] [place] [address] Sonido Pino P.A.-C., M.S. [address] [place] [phone] Scheduled Referrals Name Type Priority Associated Diagnoses Order Schedule Physical Medicine and Rehabilitation office visit (clinic) Outpatient Referral Routine Expected: 05/31/2024, Expires: 08/31/2025 documented as of this encounter Visit Diagnoses Not on filedocumented in this encounter Additional Health Concerns Infection Onset Date Last Indicated Resolved Time Protective Environment 11/21/2022 11/21/2022 documented as of this encounter Care Teams Linemarker Relationship Specialty Start Date End Date Keven Montoya M.D. [address] [place] [phone] PCP - General Family Medicine 12/26/20 documented as of this encounter
--- OUTSIDE RECORDS SUMMARY | 2024-06-28 13:56 | XMS_ITS | Encounter Summary ---
Author Organization [facility] Address [address] [place] [address] Care Team Providers Care Project Manager Name Role Phone Keven Montoya M.D. 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 [address] [place] [address] documented as of this encounter Procedures Procedure Name Priority Date/Time Associated Diagnosis Comments PHYSICAL MEDICINE AND REHAB IMAGE EXAM Routine 04/22/2024 11:10 AM CDT documented in this encounter Results * Non-Radiology Image-Physical Medicine And Rehab Image [...] IMAGING PROCE DURES Final Result IIMS NA documented in this encounter Visit Diagnoses Not on filedocumented in this encounter Additional Health Concerns Infection Onset Date Last Indicated Resolved Time Protective Environment 11/21/2022 11/21/2022 documented as of this encounter Care Teams Project Manager Relationship Specialty Start Date End Date Keven Montoya M.D. [address] [place] [phone] PCP - General Family Medicine 12/26/20 documented as of this encounter
--- OUTSIDE RECORDS SUMMARY | 2024-06-28 13:56 | XMS_ITS | Encounter Summary ---
Author Organization [facility] Address [address] [place] [address] Care Team Providers Care Guitar Repairer Name Role Phone Keven Montoya M.D. Primary Care Provider [phone] Reason for Referral * Outpatient (Routine) - Closed Specialty Diagnoses / Procedures Referred By Contac t Referred To Contact Diagnoses Bursitis Trochanteric Left Procedures PMR Peripheral injection/USGI (Procedure Only) Maximiliano Martinez M.D. [address] [place] [address] Phone: tel: fax: [facility] Region Referral ID Status Reason Start Date Expiration Date Visits Re quested Visits Authorized [id number] Closed 05/07/2024 05/07/2025 1 1 Reason for Visit * Reason Onset Date Comments Nurse Assessment 05/06/2024 Changes in hip pain Encounter Details Date Type Department Care Team (Latest Contact Info) Description 05/06/2024 Clinical Communication Department of Physical Medicine and Rehabilitation in [place], [place] [address] [place] [address] Maximiliano Martinez M.D. 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 [address] [place] [phone] documented as of this encounter Results * [place] ARTHCS ASP/INJ MJR JT W US (05/12/2024 10:00 AM CDT) Narrative MMODAL - 05/12/2024 10:00 AM CDT [...] documented in this encounter Visit Diagnoses Diagnosis Bursitis Trochanteric Left- Primary Bursitis Trochanteric Left documented in this encounter Additional Health Concerns Infection Onset Date Last Indicated Resolved Time Protective Environment 11/21/2022 11/21/2022 documented as of this encounter Care Teams Guitar Repairer Relationship Specialty Start Date End Date Keven Montoya M.D. [address] [place] [phone] PCP - General Family Medicine 12/26/20 documented as of this encounter
--- OUTSIDE RECORDS SUMMARY | 2024-06-28 13:56 | XMS_ITS | Encounter Summary ---
Author Organization [facility] Address [address] [place] [address] Care Team Providers Care Electro Mechanic Name Role Phone Keven Montoya M.D. Primary Care Provider [phone] Reason for Referral * Outpatient (Routine) - Authorized Specialty Diagnoses / Procedures Referred By Contac t Referred To Contact Diagnoses Arthritis Hip Pain Hip Bilateral Procedures Peripheral injection/aspiration/USGI (Procedure Only): L hip joint Maximiliano Martinez M.D. [address] [place] [address] Phone: tel: fax: [facility] Region Referral ID Status Reason Start Date Expiration Date V isits Requested Visits Authorized [id number] Authorized 04/22/2024 04/22/2025 1 1 Reason for Visit * Reason Comments Injections * Outpatient (Routine) - Closed Specialty Diagnoses / Procedures Referred By Contac t Referred To Contact Diagnoses Arthritis Hip Procedures PMR Peripheral injection/USGI (Procedure Only) Maximiliano Martinez M.D. [address] [place] [address] Phone: tel: fax: [facility] Region Referral ID Status Reason Start Date Expiration Date Visits Re quested Visits Authorized [id number] Closed 04/14/2024 04/14/2025 1 1 Encounter Details Date Type Department Care Team (Latest Contact Info) Description 04/22/2024 11:30 AM CDT Procedure visit Department of Physical Medicine and Rehabilitation in [place], [place] [address] [place] [address] Maximiliano Martinez M.D. [address] [place] [phone] Pain Hip Bilateral (Primary Dx); Arthritis Hip Social History Tobacco Use Types [...] on file Legal Sex Male 4:20 AM STONEMASON Gender Identity Male 12/01/2017 1:25 PM CDT Sexual Orientation Straight 12/01/2017 1: 25 PM CDT documented as of this encounter Patient Instructions * Patient Instructions* Maximiliano Martinez M.D. - 04/22/2024 11:30 AM CDT Images from the original note were not included. Patient Education Care After Your Steroid Injection Follow these instructions after your steroid injection. If you have questions, talk with your health care provider. Diet Continue with your usual diet, unless you are told otherwise. Bathing You may shower. Do not soak in a bath tub or use a hot tub, whirlpool, or sauna for the first 48 hours. Procedure site dressing(s) Remove your adhesive bandage(s) before showering. Side effects The following conditions may begin within one hour of the procedure and last up to four hours: Numbness, tingling or weakness in your arms, legs or both. Difficulty urinating or leaking urine. Dizziness or light-headedness. If these conditions last longer than four hours, contact a member of your health care team as you were told. For a few days after your injection, you may have: ???Hot flashes?? and a red, flushed look on your face. Difficulty sleeping and/or feel very alert or ???revved up.?? Both positive and negative moods (mood swings). Activity Do not drive today. Do not provide care for anyone who depends on your help. After the first day, ease back into doing your daily activities. Fall prevention (for injections in the spine or legs) For several hours after the injection, it is easier to fall and hurt yourself because your legs mayfeel numb, clumsy, weak and unsteady. Falling could cause you to break a bone or have a serious back injury. To help keep from falling: Be careful when you step on and off curbs, climb stairs and walk. Remove any clutter and rugs from your floors, especially in the walkways. Wear shoes with low heels until your legs feel steady again. Pain After four to six hours, the local anesthetic will wear off and your usual pain will return for a few days until you feel the anti-inflammatory effect of the steroid. It is possible for the pain to feel worse before it begins to feel better. Your procedure site(s) may feel sore for one to two days. It may be about two weeks after the procedure before you feel the greatest pain relief. For mild discomfort related to your procedure site(s), apply an ice pack covered in a soft cloth tothe site(s) for 15 to 20 minutes during the first 24 hours. Repeat every four to six hours, as needed. Do not use a heating pad or any form of heat on the procedure site(s) for the first 48 hours. Medications Take your regular medications, unless you are told otherwise by your health care provider. For pain relief, take prescription pain medication or acetaminophen (Tylenol???) in the recommendeddose according to package instructions. If you take blood-thinning medication Blood-thinning medications affect clotting and bleeding. If your blood-thinning medications were stopped before your procedure, both the health care provider who manages these medications and the provider who performed your procedure will need to decide when to restart these medications. If you have diabetes Your blood glucose will rise for a few days after your steroid injection(s). Monitor your blood glucose as instructed by the health care provider managing your diabetes. If your blood glucose is higher than your usual range, or if you have any questions or concerns, contact the health care provider managing your diabetes. Illness not related to injection If you become ill, have an injury or need surgery after you have the injection, tell your health care provider you had a cortisone injection. When to get medical care Contact a member of your health care team as you were told if you have: A temperature of 100.4 degrees Fahrenheit (38 degrees Celsius) or higher. Chills. A procedure site that becomes red, swollen, tender, or warm. Unusual drainage, color or odor from a procedure site. Increasing pain or tenderness at a procedure site that cannot be relieved with pain medication. A change in the color or temperature of your arms or legs. Questions or concerns. Have someone take you to the nearest emergency center (do not drive yourself), or call 911 or your local emergency number if you have: Bleeding that does not stop after you put ice on the area for 10 minutes. Signs of an allergic reaction: Rash. Swelling in your throat. Difficulty with swallowing. Wheezing or difficulty with breathing. Monitoring your pain It is important to know the amount and duration of pain you have after your procedure. A care velvet steamer may call you within two weeks after your procedure to see if you have any questions or concerns and to ask about your pain. Be prepared to answer the following questions: Did your pain improve? If so, how much did your pain improve? For how long did your relief last? You may be asked to rate your pain on a scale of 0 to 10, or another scale as appropriate. Zero means you have no pain, 5 means you have a moderate amount of pain, and 10 is the worst pain you have ever had. This material is for your education and information only. This content does not replace medical advice, diagnosis or treatment. New medical research may change this information. If you have questionsabout a medical condition, always talk with your health care provider. ?? 2017 [facility] [employer] [facility] ([employer]). All rights reserved. [id number] documented in this encounter Procedure Notes * Maximiliano Martinez M.D. - 04/22/2024 11:30 AM CDTAssociated Order(s): PMR Peripheral injection/USGI (Procedure Only): R hip joint; Peripheral injecti on/aspiration/USGI (Procedure Only): L hip joint Pre-Procedure Diagnose(s): Arthritis Hip Post-Procedure Diagnose(s): Pain Hip Bilateral; Arthritis Hip Hip site - R hip joint: injection [...] and ice area as needed for comfort Hip site - L hip joint: injection only Performed by: Maximiliano Martinez M.D. Authorized by: Maximiliano Martinez M.D. Care team members present 1. Federica Dulce K PROCEDURE DETAILS Indications: Left hip joint pain Procedure Location hip Hip site - L hip joint Site prep: patient was prepped [...] Procedure purpose: diagnostic and therapeutic Indications: Left hip joint pain Appropriate hand hygiene, gown, [...] and ice area as needed for comfort documented in this encounter Plan of Treatment Upcoming Encounters Date Type Department Care Team (Late st Contact Info) Description 09/09/2024 10:20 AM STONEMASON Appointment Department of Laboratory Medicine in [place], [place] [address] [place] [address] Sonido Pino P.A.-C., M.S. [address] [place] [phone] documented as of this encounter Procedures Procedure Name Priority Date/Time Associated Diagnosis Comments [place] ARTHCS ASP/INJ MJR JT W US Routine 04/22/2024 11:30 AM CDT Arthritis Hip Pain Hip Bilateral [place] ARTHCS ASP/INJ MJR JT W US Routine 04/22/2024 11:30 AM CDT Arthritis Hip Pain Hip Bilateral documented in this encounter Results * [place] ARTHCS ASP/INJ MJR JT W US (04/22/2024 11:30 AM CDT) Narrative [facility]ODAL - 04/22/2024 11:30 AM CDT Maximiliano Martinez M.D. 04/22/2024 12:37 PM Hip site - L hip joint: injection only Performed by: Maximiliano Martinez M.D. Authorized by: Maximiliano Martinez M.D. Care team members present 1. Dulce Stallworth PROCEDURE DETAILS Indications: Left hip joint pain Procedure Location hip Hip site - L hip joint Site prep: patient was prepped [...] Procedure purpose: diagnostic and therapeutic Indications: Left hip joint pain Appropriate hand hygiene, gown, [...] Martinez M.D. PROCEDURE/MINOR SURGICAL ORDERABLES Final Result [facility] NA * [place] ARTHCS ASP/INJ MJR JT W (04/22/2024 11:30 AM CDT) Narrative MMSANIYA - 04/22/2024 11:30 AM CDT Maximiliano Martinez [...] documented in this encounter Visit Diagnoses Diagnosis Pain Hip Bilateral- Primary Arthritis Hip documented in this encounter Administered Medications Inactive Administered Medications - up to 3 most recent administrations Medication Order MAR Action Action Date Dose Rate Site lidocaine 10 mg/mL (1 %) injection 2 mL (Xylocaine) 2 mL, injection, One-Time Injection, Starting on Ignacia 04/22/24 at 1130, For 1 doseIndications:Arthritis Hip,Pain Hip Bilateral Given 04/22/2024 11:30 AM CDT 2 mL lidocaine 10 mg/mL (1 %) injection 2 mL (Xylocaine) 2 mL, injection, One-Time Injection, Starting on Ignacia 04/22/24 at 1130, For 1 doseIndications:Arthritis Hip,Pain Hip Bilateral Given 04/22/2024 11:30 AM CDT 2 mL lidocaine 20 mg/mL injection 1 mL (Xylocaine) 1 mL, injection, One-Time Injection, Starting on Ignacia 04/22/24 at 1130, For 1 doseIndications:Arthritis Hip,Pain Hip Bilateral Given 04/22/2024 11:30 AM CDT 1 mL lidocaine 20 mg/mL injection 1 mL (Xylocaine) 1 mL, injection, One-Time Injection, Starting on Ignacia 04/22/24 at 1130, For 1 doseIndications:Arthritis Hip,Pain Hip Bilateral Given 04/22/2024 11:30 AM CDT 1 mL methylPREDNISolone acetate injection 40 mg (DEPO-MedroL) 40 mg, intra-articular, One-Time Injection, Starting on Ignacia 04/22/24 at 1130, For 1 doseIndications:Arthritis Hip,Pain Hip Bilateral Given 04/22/2024 11:30 AM CDT 40 mg methylPREDNISolone acetate injection 40 mg (DEPO-MedroL) 40 mg, intra-articular, One-Time Injection, Starting on Ignacia 04/22/24 at 1130, For 1 doseIndications:Arthritis Hip,Pain Hip Bilateral Given 04/22/2024 11:30 AM CDT 40 mg ROPivacaine (PF) 2 mg/mL (0.2 %) injection 1 mL (Naropin) 1 mL, injection, One-Time Injection, Starting on Ignacia 04/22/24 at 1130, For 1 doseIndications:Arthritis Hip,Pain Hip Bilateral Given 04/22/2024 11:30 AM CDT 1 mL ROPivacaine (PF) 2 mg/mL (0.2 %) injection 1 mL (Naropin) 1 mL, injection, One-Time Injection, Starting on Ignacia 04/22/24 at 1130, For 1 doseIndications:Arthritis Hip,Pain Hip Bilateral Given 04/22/2024 11:30 AM CDT 1 mL documented in this encounter Additional Health Concerns Infection Onset Date Last Indicated Resolved Time Protective Environment 11/21/2022 11/21/2022 documented as of this encounter Care Teams Electro Mechanic Relationship Specialty Start Date End Date Keven Montoya M.D. [address] [place] [phone] PCP - General Family Medicine 12/26/20 documented as of this encounter
--- OUTSIDE RECORDS SUMMARY | 2024-06-28 13:56 | XMS_ITS | Encounter Summary ---
Author Organization [facility] Address [address] [place] [address] Care Team Providers Care Multimedia Journalist Name Role Phone Keven Montoya M.D. Primary Care Provider [phone] Reason for Referral * Physical Therapy (Routine) - Authorized Specialty Diagnoses / Procedures Referred By Contac t Referred To Contact Diagnoses Bursitis Trochanteric Left Maximiliano Martinez M.D. [address] [place] [address] Phone: tel: fax: Referral ID Status Reason Start Date Expiration Date V isits Requested Visits Authorized [id number] Authorized Other 05/12/2024 11/11/2025 99 99 Reason for Visit * Reason Comments Injections * Outpatient (Routine) - Closed Specialty Diagnoses / Procedures Referred By Contac t Referred To Contact Diagnoses Bursitis Trochanteric Left Procedures PMR Peripheral injection/USGI (Procedure Only) Maximiliano Martinez M.D. [address] [place] [address] Phone: tel: fax: [facility] Region Referral ID Status Reason Start Date Expiration Date Visits Re quested Visits Authorized [id number] Closed 05/07/2024 05/07/2025 1 1 Encounter Details Date Type Department Care Team (Latest Contact Info) Description 05/12/2024 10:00 AM CDT Procedure visit Department of Physical Medicine and Rehabilitation in [place], [place] [address] [place] [phone] Maximiliano Martinez M.D. 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 - 05/12/2024 10:00 AM CDT Images from the original note were not included. Patient Education Outer Hip Pain: Greater Trochanteric Pain Syndrome Common Conditions That Lead to Hip Pain Gluteus medius tendinosis Gluteus medius tendinosis happens when your gluteus medius tendon has had too much wear and tear orstarts to get worn out from repeated movement. This could happen on one side of your body or on both sides. Your gluteus medius muscle goes from your pelvic bone to the top of your thigh bone. On the upper end of the thigh bone is a wide area called the greater trochanter. The gluteus medius tendon attaches the gluteus medius muscle to the thigh bone at the greater trochanter. (See Figure 1.) The thigh bone is also called the femur. What does the gluteus medius group do? The gluteus medius muscle and tendon help move your hips and legs. And they hold your pelvis steadywhen you are walking, going up and down stairs, running, and jumping. Hip bursitis Hip bursitis, a different condition, often happens at the same time as gluteus medius tendinosis. Hip bursitis is the inflammation of a small, fluid-filled sac just outside the hip joint. That sac iscalled a ???bursa.?? It sits on top of the femur bone -- right under your gluteus medius tendon. What does the bursa do? The bursa acts like a cushion between the greater trochanter and the layers of tendon and tissue over it. (See Figures 2a and 2b.) The bursa also has special cells that act like oil to help the nearby tissues glide smoothly as you move. Different terms to describe tendon injuries Tendinitis. This means ???inflammation of the tendon.?? Tendinosis. This refers to tiny tears in the tissue in and around the tendon. It is caused by overuse. Tendinopathy. Many health care providers use this term to refer to a condition that includes both inflammation and tiny tears. Signs and Causes Common signs The most noticeable sign of gluteus medius tendinosis and bursitis is pain on your outer hip area. Limping is a common reaction to the pain. Walking distances and climbing stairs or hills may make the pain feel worse. The pain often feels worse when lying in bed on that side. Common causes An injury to the tissues in the area, such as a fall. Irritation or inflammation of the tendons around the hip. Overuse, poor healing, fraying, or ???wear and tear?? of tendon fibers. Tightness in the soft tissues. Wear and tear of the soft tissues. Repeated direct pressure on the area around the bursa. Loss of muscle mass and loss of the fatty layers in the skin. Imbalance of muscle tone or loss of strength. This could be a temporary condition, such as limping after an illness, injury, surgery, or other setback. Bone spurs or calcium deposits. Legs that are different lengths. Anyone can develop bursitis, but some issues may increase your risk of developing bursitis: Age. Tendinosis and bursitis are more common as a person ages and loses muscle and fatty layers in the skin. Certain jobs and hobbies. If you have a job or hobby that requires repetitive motion or pressure onparticular bursae, you are at an increased risk of developing tendinosis and bursitis. Many different parts of the body can be affected. Other medical conditions. Diseases and conditions that affect the whole body, such as rheumatoid arthritis, gout and diabetes, may increase your risk of getting bursitis. Diagnosis and Treatments Diagnosing Tendinosis and bursitis are often diagnosed based on your medical history and a physical exam. If more testing is needed, you may have imaging tests. X-ray images can???t positively diagnose tendinosis or bursitis. But they can help rule-out other causes of your pain. Ultrasound or magnetic resonance imaging (MRI) may be used. Common treatment options Treatment usually involves resting the area and protecting it from more injury. In most cases, withproper treatment the pain usually goes away within a few weeks. But repeated flare-ups are common. Short-term treatment options include the following. Attend physical therapy and rehabilitation appointments. Do the exercises as directed at home. (SeeHip Pain Stretches and Exercises.) Strengthen your hip, pelvic and core trunk muscles. Stretch the soft tissues of the iliotibial band. Train to improve your walking. Use a cane or crutch in the opposite hand to reduce the use of your painful hip. Be at a healthy weight. Being overweight puts more stress on the tissues around your joints. This is true when you are seated and lying down. Use ice or heat treatments as directed by your health care provider. Limit painful activities until your pain is under control or gone. Take medications if directed by your health care provider. This may include [id number] medication, such as ibuprofen or naproxen, to relieve pain and reduce inflammation. Change your sleep habits: Avoid lying on the painful hip. Change to a softer mattress if needed. Use furniture that fits your body correctly, that is ergonomically correct. Add a cushion to your car seat if needed. Other treatment options If necessary, your health care provider may talk to you about these less-common treatments. Add a lift to the shoe of your ???short?? leg. Inject your irritated bursa tissue with cortisone or steroid medication. Surgery. This is a rare treatment option. For more information If you have questions after reading this information, call your health care provider. Hip Pain Stretches and Exercises Breathe normally as you do each of these stretches and exercises. Hip Flexor Stretch (lying on your back) Lie on your back on a bed. Bend your legs at the knees so that your feet are flat on the bed. Slowly lower your leg off the side of the bed. This leg should be on the same side of the body as your injured hip. Let your leg hang in a relaxed position. If you do not feel enough of a stretch doing this, keep that leg hanging in a relaxed position and pull your other leg???s knee up to your chest. Hold the stretch for seconds. Return to the starting position and relax. Do this stretch time(s). Switch to the other side of the bed or turn around. Repeat the stretch time(s) using your other leg. Do this stretch time(s) a day. Iliotibial Band Stretch (lying on your back) Lie on your back with one leg bent at the knee and your foot flat on the floor. Your injured hip/leg should start in a straight position. Slowly move your straight leg inward until you feel a stretch in the muscles on the outside of thatthigh and in your buttock. (See Figure 4a.) Keep a constant, gentle stretch. If you feel the stretch lessen, continue to gently move your leg inward until you feel the stretch again. To increase the stretch more, cross your bent leg over your straight leg. (See Figure 4b.) Hold the stretch for seconds. Return to the starting position and relax. Do this stretch times. Switch your leg positions. Repeat the stretch time(s) on your other side. Do this stretch time(s) a day. Iliotibial Band Stretch (standing) Stand with the injured side of your body about one-half arm???s length away from a wall. Place yourforearm or hand on the wall for support Put your weight on the leg closest to the wall. Cross your other leg in front of you for balance. Slowly lean your hip toward the wall until you feel a stretch in the muscles on the outside of the hip closest to the wall. Keep a constant, gentle stretch. If you feel the stretch lessen, gently lean toward the wall until you feel the stretch again. Hold the stretch for seconds. Return to the starting position and relax. Do this stretch times. Turn around to repeat the stretch time(s) on your other side. Do this stretch time(s) a day. Lower Trunk Rotation Lie on your back on a firm, flat surface with your hips and knees bent. Rest your hands behind yourhead. Gently lift your injured hip and roll it toward your other side; allow your knees to fall gently tothe other side. Hold this stretch for seconds. Slowly return to the starting position and relax. Do this stretch times. Repeat the stretch with the other hip. Do this stretch time(s) a day. Straight-leg abduction Lie on your side with your legs straight. The injured hip should be on top. You may bend your bottom leg for support. Lift your top leg about 12 inches above your bottom leg, keeping your toes pointed forward. Keep your top leg in a straight line with your back and shoulder; do not let your leg swing to the front. Hold for seconds. Slowly return your leg to the starting position and relax. Do this exercise times. Do this exercise time(s) a day. Check one or both of these boxes and follow these directions if your health care provider tells youto do so. __ Do this exercise with your other leg also. __ Add a pound weight to your leg(s). Standing hip abduction Stand facing a counter top or sturdy piece of furniture. Place your feet shoulder-width apart. Hold the counter top or furniture for support. Starting with the injured side of your body, slowly raise one leg out to the side as high as you can. Keep your toes pointed forward. Keep your leg straight. Slowly return your leg to the starting position and relax. Do this exercise times. Repeat the exercise with the other hip. Do this exercise time(s) a day. Bridging Lay flat on the floor and put your feet flat on floor. Use your buttocks muscles to slowly lift your hips. Hold this position for seconds. Slowly lower your hips to the starting position and relax. Do this exercise times. Do this exercise time(s) a day. This material is for your education and information only. This content does not replace medical advice, diagnosis or treatment. New medical research may change this information. If you have questionsabout a medical condition, always talk with your health care provider. ?? 2011 [facility] [employer] ([facility]). All rights reserved. [id number] documented in this encounter Procedure Notes * Maximiliano Martinez M.D. 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 [address] [place] [address] documented as of this encounter Procedures Procedure Name Priority Date/Time Associated Diagnosis Comments OK ARTHCS ASP/INJ MJR JT W US Routine 05/12/2024 10:00 AM CDT Bursitis Trochanteric Left documented in this encounter Results * OK ARTHCS ASP/INJ MJR JT W US (05/12/2024 [...] this encounter Visit Diagnoses Diagnosis Bursitis Trochanteric Left documented in this encounter Administered Medications Inactive Administered Medications - up to 3 most recent administrations Medication Order MAR Action Action Date Dose Rate Site BUPivacaine PF 0.25 % (2.5 mg/mL) injection 4 mL (Marcaine) 4 mL, injection, One-Time Injection, Starting on Fri05/12/24 at 1000, For 1 doseIndications:Bursitis Trochanteric Left Given 05/12/2024 10:00 AM CDT 4 mL methylPREDNISolone acetate injection 40 mg (DEPO-MedroL) 40 mg, intra-articular, One-Time Injection, Starting on Fri05/12/24 at 1000, For 1 doseIndications:Bursitis Trochanteric Left Given 05/12/2024 10:00 AM CDT 40 mg documented in this encounter Additional Health Concerns Infection Onset Date Last Indicated Resolved Time Protective Environment 11/21/2022 11/21/2022 documented as of this encounter Care Teams Multimedia Journalist Relationship Specialty Start Date End Date Keven Montoya M.D. [address] [place] [address] [place] [address] PCP - General Family Medicine 12/26/20 documented as of this encounter
== END 2024-06-28 13:53 | disposition home or self-care (01) ==
PROVIDERS: PCP Family Medicine; Visit Provider Family Medicine
DX: I10 Essential (primary) hypertension (principal)
CPT/HCPCS: 80048; 85025

== ENCOUNTER 2024-07-22 10:10 | Day surgery (SDC) | payer MEDICARE, OTHER, SELFPAY ==
[2024-07-20] MEDS: fentaNYL 100 MCG/2 ML inj IVP (11:30)
[2024-07-20] MEDS: MIDAZOLAM HCL 1 MG/ML inj IVP (11:30)
[2024-07-22] VITALS (24 sets, daily range): BP systolic 122–171; BP diastolic 61–97; PULSE 63–97; RESP 16–20; TEMP 35.7–37.1; O2SAT 92–98; BMI 26.9
[2024-07-22] MEDS: SODIUM CHLORIDE 0.9 % (FLUSH) 10 ML SYRINGE IVF (11:15)
[2024-07-22] MEDS: LACTATED RINGERS 1000 ML 1,000 ML 100 ML IV (11:22)
[2024-07-22] MEDS: CELECOXIB 200 MG CAPSULE PO (11:23)
[2024-07-22] MEDS: OXYCODONE (CR) 10 MG TAB.ER.12H PO (11:23)
[2024-07-22] MEDS: ACETAMINOPHEN 500 MG TABLET 1000 MG PO ×2 (11:23→17:40)
--- NOTE | 2024-07-22 11:47 | W.PM.NB ---
Nerve Block Nerve Block Time Seen by Provider: 11:30 Date Seen: 07/22/24 Type of block requested by surgeon for post-operative analgesia: MARY/LFCN Side: left Time out performed: Yes Verification of patient name: Yes Verification of date of : Yes Site marking: site marked Name of person performing procedure: Evaristo Shon Continuous monitoring Was continuous monitoring of O2 sat, B/P, cardiac catheterization technician, recorded every 15 minutes?: Yes Procedure Checklist: sterile prep, needles and gloves Ultrasound guided. Images saved: Yes Medications given in 5ml increments after negative aspiration: Ropivicaine %: 0.5 mL: 30 Needle gauge: 21 Decadron (mg): 10 Precedex (mcg): 25 Patient tolerated procedure well: Yes Additional comments: Injected in 5mL increments after negative aspiration Block Charges Block Charge (with Pro Fee): Other Periph Nerve Block Use of Ultrasound Machine for Block: Yes- US Guidance/pain block
--- NOTE | 2024-07-22 11:48 | SUR.PREOP ---
TIME?OUT:?1128, left hip PT/RN/MDA?VERIFICATION?OF?SURGICAL?SITE,?PROCEDURE,?AND?CONSENT OBTAINED?PRIOR?TO?INVASIVE?PROCEDURE.
--- NOTE | 2024-07-22 12:45 | CRLHL7_ITS ---
For Patients: As a result of the Cures Act, medical imaging exams and procedure reports are released immediately into your electronic medical record. You may view this report before your referring provider. If you have questions, please contact your health care provider. Indication: Hip replacement surgery Technique: AP hip fluoroscopic image. Fluoroscopy time 62.3 seconds. 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 Dictated by Oleg Ignacio MD @ 07/23/2024 9:43:38 AM (Electronically Signed)
[2024-07-22] MEDS: CEFAZOLIN 2 GM INJ IVP (13:35)
[2024-07-22] MEDS: TRANEXAMIC ACID 100 MG/ML INJ 1000 MG IV (13:45)
[2024-07-22] MEDS: LACTATED RINGERS 500 ML 500 ML 125 ML IV (14:05)
--- NOTE | 2024-07-22 15:24 | PC.SOCIAL ---
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 Pt will be admitted to the hospital after surgery and social work will follow up on med/surg.
--- NOTE | 2024-07-22 15:35 | CRLHL7_ITS ---
For Patients: As a result of the Cures Act, medical imaging exams and procedure reports are released immediately into your electronic medical record. You may view this report before your referring provider. If you have questions, please contact your health care provider. 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 Bone alignment is normal. No sign of acute fracture. Postop changes are within normal limits. Dictated by Oleg Ignacio MD @ 07/23/2024 9:44:37 AM (Electronically Signed)
--- NOTE | 2024-07-22 15:37 | P.ORPRC_ITS ---
Procedure Note Date of procedure: 07/22/24 Procedure: PREOPERATIVE DIAGNOSIS: Left hip osteoarthritis POSTOPERATIVE DIAGNOSIS: Left hip osteoarthritis NAME OF OPERATION: Left total hip arthroplasty SURGEON: Manish Nguyen MD CALCULUS TEACHER: Emmie Dempsey PA-C, FELICIA Mars IMPLANTS: 1. [employer] [place] # 56 sector ingrowth cup 2. 36 x 56 +4 neutral polyethylene 3. Actis # 7 standard collared ingrowth stem 4. 36 + 1.5 cobalt chrome femoral head ANESTHESIA: General ESTIMATED BLOOD LOSS: 300 cc COMPLICATIONS: None SPECIMENS: None DRAINS: None PREOPERATIVE ANTIBIOTICS: Ancef 2 grams INDICATIONS: The patient is a 83-year-old with a longstanding history of severe, unrelenting left hip pain secondary to end-stage left hip osteoarthritis. Despite appropriate nonoperative management, including activity modification, use of an assist device, anti-inflammatories, [id number] pain medication, physical therapy and injections, they continue to have pain and disability. Operative intervention was offered. The risks, benefits and expected outcomes were discussed in detail. These included but were not limited to: Infection, bleeding, injury to blood vessel or nerve, venous thromboembolism. All questions were answered to their satisfaction. Use of an assistant quality manager was necessary throughout the case for patient positioning and safety, soft tissue retraction and closure. PROCEDURE: The patient was placed supine on the [place] table. General anesthesia was administered. The assistant quality manager made sure the patient was properly positioned. The left hip was prepped and draped in the usual sterile fashion. The image intensifier was brought in for a perfect AP pelvis and a perfect double tear drop AP view of each hip which were used for intraoperative templating with our fluoroscopic guide. An oblique incision was made 3 cm distal and 3 cm lateral to the anterior superior iliac spine. The assistant quality manager retracted the soft tissues to protect them. Subcutaneous dissection was taken with electrocautery to the superficial fascia. The fascia was divided in line with the incision. Blunt dissection was carried medially to the tensor fascia lawanda and sartorius interval. Deep dissection was carried with electrocautery. The circumflex vessels were cauterized and divided. The capsule was exposed and then divided in a T- fashion, tagged with #1 Ethibond sutures. Retractors were placed in the joint, held by the assistant quality manager. The corkscrew was placed in the femoral head. The neck cut was made in the subcapital region. We made a second neck cut more distal. The napkin ring of bone was removed. The femoral head was removed intact. Acetabular retractors were placed, held by the assistant quality manager. The labrum was sharply debrided. The capsule was released. The 43 mm reamer was used to the true medial wall. We then enlarged in 2 mm increments using the image intensifier for our reamer placement. We impacted the cup which had excellent purchase. We placed the polyethylene. Attention was then turned to the proximal femur. The limb was placed in 140 degrees of external rotation, maximum extension and adduction. A significant amount of time was spent releasing the capsule to allow us to deliver the femur into the wound and complete the femoral side safely. Retractors were held by the assistant quality manager throughout the femoral preparation. The supervisor transferring and boxing and canal finder were used. Broaches were used to a stable size. Femoral bone quality was quite good, therefore we elected to proceed with an uncemented stem. The calcar reamer was used. Trial components were placed. The hip was reduced and was found to be stable with appropriate soft tissue tension. Length and offset had been nicely restored using the image intensifier and our fluoroscopic guide. Trial components were removed. The stem was impacted. We placed the femoral head. Again, the hip was reduced and was found to be stable with appropriate soft tissue tension. Length and offset had been nicely restored. The assistant quality manager did a three minute dilute Betadine solution soak. The assistant quality manager irrigated the wound with 3 liters of normal saline via pulse lavage. The assistant quality manager repaired the anterior capsule with a #1 Vicryl and our previously placed Ethibond sutures. The assistant quality manager closed the fascia over the tensor fascia lawanda with a #1 PDO Stratafix, subcutaneous tissues with 2-0 Vicryl, skin with a running 3-0 Stratafix and glue. A dry dressing was applied by the assistant quality manager. Sponge and needle counts were correct x 2. The patient tolerated the procedure well; there were no apparent complications. They were awakened and extubated in the operating room, sent to the Post-Anesthesia Care Unit in satisfactory condition. PLAN: 1. The patient will be mobilized with physical therapy, weight-bearing as tolerates 2. Xarelto x 5 days then aspirin x 30 days will be used for DVT prophylaxis 3. The patient will be discharged once medically appropriate
--- NOTE | 2024-07-22 16:01 | W.ANESCHARGE ---
Anesthesia Charges Start Date/Time Anesthesia Start Date: 07/22/24 Anesthesia Start Time: 13:28 Stop Date/Time Anesthesia Stop Date: 07/22/24 Anesthesia Stop Time: 16:00
[2024-07-22] MEDS: fentaNYL 100 MCG/2 ML inj 50 MCG IVP (16:15)
[2024-07-22] MEDS: OXYCODONE 5 MG TABLET PO (18:17)
--- NOTE | 2024-07-22 18:33 | PM.IMCN1 ---
Date of Consult Patient: [facility] Patient Consult date: 07/22/24 Requesting Physician: Orthopedics Primary Care Provider: Oleg Vieira MD Consult Narrative Reason for consult: post-op care of HTN and rheumatoid arthritis Narrative: Victoriano Mccullough is a 83 year old man with advanced left Coxarthrosis undergoes elective left total hip arthroplasty today without apparent complications. Estimated blood loss 300 mL. Generally healthy and stable on current medication regimen. I reviewed the preoperative assessment per Dr. Vieira dated 06/28/2024. Denies any chest, back, neck, arm heaviness, pressure, tightness, or pain. Denies dyspnea at rest or dyspnea with exertion at this time. Denies paroxysmal nocturnal dyspnea orthopnea. Denies syncope or near-syncope. Denies diaphoresis or palpitations. Denies edema. Rheumatoid arthritis well controlled on current regimen. Review of Systems Status of ROS: Reports: 6 or more systems reviewed and unremarkable except as noted in History and below Narrative: Started smoking 11 years of age. One pack per day smoker until he quit 1981. Thirty pack-year history of smoking. Quit drinking about 15 years ago. Denies any other street or recreational drug use. Lives with his . They have been for 61 years. They had 4 children, 1 at 40 years of age, 3 are still alive. Eight grandchildren. One great grandchild. 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 Active in his [employer]. Since COVID back in 2019, he and his have not returned to weekly mass participation in person but continue to participate in virtual mass via television. [facility] Medical History (Updated 07/22/24 @ 18:49 by Roderick Montague MD) History of tobacco use disorder ?Z87.891 - Personal history of nicotine dependence (ICD-10) Bilateral primary osteoarthritis of hip ?M16.0 - Bilateral primary osteoarthritis of hip (ICD-10) Primary hypertension ?I10 - Essential (primary) hypertension (ICD-10) RLL pneumonia ?J18.9 - Pneumonia, unspecified organism (ICD-10) Facial basal cell cancer ?C44.310 - Basal cell carcinoma of skin of unspecified parts of face (ICD-10) Rheumatoid arthritis (01/16/15) ?M06.9 - Rheumatoid arthritis, unspecified (ICD-10) Surgical History (Updated 07/22/24 @ 18:44 by Roderick Montague MD) History of arthroscopy of left shoulder ?Z98.890 - Other specified postprocedural states (ICD-10) History of arthroscopy of right shoulder ?Z98.890 - Other specified postprocedural states (ICD-10) History of hemorrhoidectomy ?Z98.890 - Other specified postprocedural states (ICD-10) History of appendectomy ?Z90.49 - Acquired absence of other specified parts of digestive tract (ICD-10) Social History Narrative: -[employer], retired, [employer] patient former smoker-quit 1972, no EtOH What is your current living situation?: I presently have a place to live Problems where you live: no known problems Problems where you live details: Home [place] In the past 12 months, utilities in danger of being shut off: no In past 12 months, lack of transportation kept you from medical appts, meetings, work, or getting things needed for daily living: no In the past 12 mos, have been you worried that your food would run out before you had money to buy more?: never true In the past 12 mos, the food you bought just didn't last and you didn't have money to buy more?: never true Highest level of school completed/degree received: decline to answer Smoking Status: Former smoker What tobacco products do you use: cigarettes Smoking quit date/years: >15 years ago Do you use any of these nicotine containing products: None Second hand tobacco smoke exposure: No How often do you have a drink containing alcohol: never AUDIT-C Alcohol total score: 0 Non-prescribed substance use: denies use Caffeine: Yes How often does anyone, including family, friends and others, physically hurt you: never How often does anyone, including family, friends and others, insult or talk down to you: never How often does anyone, including family, friends and others, threaten you with harm: never How often does anyone, including family, friends and others, scream or curse at you: never service: Yes ([employer]) Meds Home Medications and Allergies Home Medications ?Medication ?Instructions ?Recorded ?Confirmed ?Type ascorbic acid (vitamin C) 1,000 mg 1,000 mg PO DAILY 03/01/22 07/22/24 History tablet cyanocobalamin (vitamin B-12) 500 500 mcg PO DAILY 03/01/22 07/22/24 History mcg tablet folic acid 1 mg tablet 5 mg PO DAILY 03/01/22 07/22/24 History hydroxychloroquine 200 mg tablet 200 mg PO DAILY 03/01/22 07/22/24 History methotrexate sodium (PF) 25 mg/mL 20 mg subcut QWEEK 03/01/22 07/22/24 History injection solution multivitamin 1 tab PO QDAY 03/01/22 07/22/24 History syringe with needle 1 mL 25 gauge #50 ea 03/01/22 07/22/24 History x 5/8 (BD Tuberculin Syringe) aspirin 325 mg tablet,delayed 325 mg PO QDAY 07/19/24 07/22/24 History release Allergies Allergy/AdvReac Type Severity Reaction Status Date / Time No Known Drug Allergies Allergy Verified 07/22/24 10:29 Exam Narrative: Exam Narrative: Examined patient in his hospital room. Vision and hearing are adequate. Appears comfortable no acute distress. Eating his dinner without any concerns or complications. No coughing or sputtering. Drinking thin liquids without any difficulties. Conjugate gaze. No icterus. Cranial nerves 3-12 grossly normal. No focal motor neurologic deficits. Neck is supple. Midline trachea. With head of bed elevated at 60? he does have hepatojugular reflux up to the angle of the jaw. No carotid bruits. Lungs are clear to auscultation without wheezing, rhonchi, or rales. No CVA tenderness. Heart tones with regular rhythm, normal S1-S2. Does have a soft systolic murmur which is not new. No rubs. PMI not laterally displaced. Abdomen with active bowel sounds, soft, nontender. Next lines skin is warm, dry, intact, save I do not remove his surgical dressing. Const: Vital Signs, click to edit/add: Vital Signs - 24 hr 07/22/24 10:54 07/22/24 11:30 07/22/24 11:35 Temperature 98.8 F Pulse Rate 68 71 67 Respiratory Rate 20 20 20 Blood Pressure 146/87 H 150/80 H 143/90 H Pulse Oximetry 95 97 92 Oxygen Delivery Me thod Room Air Nasal Cannula Nasal Cannula Oxygen Flow Rate 2 2 07/22/24 11:40 07/22/24 11:50 07/22/24 15:55 Temperature 98.0 F Pulse Rate 63 64 79 Respiratory Rate 20 20 16 Blood Pressure 125/73 122/61 141/83 H Pulse Oximetry 97 98 93 Oxygen Delivery Me thod Nasal Cannula Nasal Cannula Room Air Oxygen Flow Rate 2 2 07/22/24 16:00 07/22/24 16:05 07/22/24 16:10 Temperature Pulse Rate 76 79 75 Respiratory Rate 16 16 16 Blood Pressure 143/88 H 137/83 146/92 H Pulse Oximetry 95 95 96 Oxygen Delivery Me thod Room Air Room Air Room Air Oxygen Flow Rate 07/22/24 16:15 07/22/24 16:20 07/22/24 16:25 Temperature 97.0 F L Pulse Rate 76 75 77 Respiratory Rate 16 16 16 Blood Pressure 151/80 H 148/91 H 152/94 H Pulse Oximetry 94 95 98 Oxygen Delivery Me thod Room Air Room Air Room Air Oxygen Flow Rate 07/22/24 16:45 07/22/24 16:55 07/22/24 17:00 Temperature 96.6 F L 96.6 F L 96.3 F L Pulse Rate 76 75 78 Respiratory Rate 16 16 18 Blood Pressure 157/97 H 161/93 H 150/88 H Pulse Oximetry 96 98 97 Oxygen Delivery Me thod Room Air Room Air Room Air Oxygen Flow Rate 07/22/24 17:15 07/22/24 17:30 07/22/24 18:00 Temperature 96.3 F L 97.0 F L 97.0 F L Pulse Rate 73 75 77 Respiratory Rate 18 20 18 Blood Pressure 158/97 H 161/92 H 162/87 H Pulse Oximetry 97 96 95 Oxygen Delivery Me thod Room Air Room Air Room Air Oxygen Flow Rate Assessment and Plan Assessment and plan (1) Bilateral primary osteoarthritis of hip: Status: Acute (2) Status post total hip replacement, left: Problem comment: -07/22/2024, Dr. Nguyen, [facility], with 300 mL estimated blood loss intraoperatively and no other complications Status: Acute (3) Primary hypertension: Problem comment: - continue with usual medications postop, including lisinopril Status: Acute (4) Rheumatoid arthritis: Problem comment: - continue with hydroxychloroquine and folic acid postop - resume methotrexate postop Status: Acute (5) Hypertensive heart disease: Problem comment: - hepatojugular reflux on physical exam 07/22/2024 suggests patient may have an element of diastolic heart failure in association with hypertensive heart disease - ongoing monitoring and management in outpatient setting per his primary care physician Status: Acute Plan 1. Reviewed impression and recommendations with patient. 2. Answered his questions to satisfaction. 3. Follow-up with his primary care physician as previously planned and sooner if needed 4. Agree with PT and OT assessment and support while in hospital 5. Agree with perioperative antibiotic prophylaxis 6. Agree with postoperative venous thromboembolism prophylaxis with rivaroxaban x5 days then aspirin times 30 days 7. Patient agreeable with above stated plans and recommendations 8. Completed hospitalists portion of hospital discharge for this hospitalization with anticipation he will continue to do well postoperatively in the hospital Total Time Spent Total Time Spent: 45 minute
[2024-07-22] MEDS: LACTATED RINGERS 1000 ML 1,000 ML 75 ML IV (18:44)
[2024-07-22] MEDS: CEFAZOLIN 2 GM in 0.9 % SODIUM CHLORIDE Mini-bag 100 ML IVPB (20:19)
[2024-07-22] MEDS: SENNOSIDES 1 TAB TABLET 2 TAB PO (20:20)
--- NOTE | 2024-07-22 22:12 | PC.NURSE ---
Patient arrived to the floor at 1630. A&Ox3. A1/walker/GB. Moves well. PRN Oxycodone x1 for 4/10 pain in L. hip. Denies CP/N/V. Tolerates regular diet. Dressing to L. hip C/D/I. Mepilex to L. cornejo for abrasion that happened prior to admission. Eating and voiding. Ice to op site.
[2024-07-23] MEDS: ACETAMINOPHEN 500 MG TABLET 1000 MG PO ×2 (00:55→05:30)
[2024-07-23 01:00] VITALS: BP 152/86; PULSE 76; RESP 18; TEMP 36.1; O2SAT 96
[2024-07-23] MEDS: CEFAZOLIN 2 GM in 0.9 % SODIUM CHLORIDE Mini-bag 100 ML IVPB (05:30)
[2024-07-23 05:44] VITALS: RESP 18
--- NOTE | 2024-07-23 05:58 | PC.NURSE ---
23-07: pleasant and cooperative. SBA with gb and walker, tolerating well. Rated pain 0-2/10 to hip, pt declined prn oxy, scheduled tylenol given, educated pt on pain multimedia services coordinator prior to therapies. VSS. ice to left hip, dressing CDI.
[2024-07-23 07:00] VITALS: BP 173/108; PULSE 75; RESP 18; TEMP 36.7; O2SAT 95
[2024-07-23 07:14] LABS: Potassium* 4.4 mmol/L (3.6-5.1); Sodium* 133 mmol/L (135-149)
[2024-07-23 07:17] LABS: Blood Urea Nitrogen* 27 mg/dL (7-30); Creatinine* 0.7 mg/dL (0.5-1.5); Est. Creatinine Clearance* 61.43; Estimated Glomerular Filt Rate 91 ml/min
[2024-07-23 07:19] LABS: Hematocrit 37.3 % (37.0-53.0); Hemoglobin* 12.9 gm/dL (13.5-17.5); Immature Granulocytes Pct Auto 0.2 %; Lymphocytes Percent Auto 4.4 % (20-44); Mean Corpuscular HGB Conc 35 gm/dL (32-36); Mean Corpuscular Hemoglobin 33 pg (26-34); Mean Corpuscular Volume 94 fL (80-100); Monocytes Percent Auto 7.7 % (0.0-11.0); Neutrophils Percent Auto 87.7 % (42.0-72.0); Platelet Count* 166 K/uL (140-440); RDW Coefficient of Variation % 14.6 % (11.5-15.5); Red Blood Count 3.95 m/uL (4.30-5.90); White Blood Count* 13.99 K/uL (4.50-11.00)
[2024-07-23 07:24] LABS: Slide Review Reflex No
[2024-07-23] MEDS: lisinopriL 20 MG TABLET 40 MG PO (08:40)
[2024-07-23] MEDS: RIVAROXABAN 10 MG TABLET PO (08:40)
[2024-07-23] MEDS: FOLIC ACID 1 MG TABLET 5 MG PO (08:40)
[2024-07-23] MEDS: OXYCODONE 5 MG TABLET PO (08:40)
[2024-07-23] MEDS: HYDROXYCHLOROQUINE 200 MG TABLET PO (08:41)
[2024-07-23] MEDS: SENNOSIDES 1 TAB TABLET 2 TAB PO (08:41)
--- NOTE | 2024-07-23 09:27 | PM.ORPN ---
Subjective Subjective Time Seen by Provider: 07:40 Date Seen: 07/23/24 Principal diagnosis: Status post left hip replacement Interval history: Victoriano is comfortable this morning. He will discharge to home today. He denies nausea and vomiting. He states he has had minimal discomfort. He states he has been ambulating into the restroom and into the hallway. Ortho Exam Narrative Exam Narrative: Alert and oriented x3. Patient is in no acute distress. Converses without labored breathing. Hearing is grossly intact. Ambulates with a walker. Examination of the left hip shows the dressing is intact. Mild edema. Mild tenderness about the thigh. No erythema or warmth or sign of infection. Good quad strength this morning. CMS is intact left lower extremity. Calf is soft and nontender. Const Vital Signs, click to edit/add: Vital Signs - 24 hr 07/22/24 10:54 07/22/24 11:30 07/22/24 11:35 Temperature 98.8 F Pulse Rate 68 71 67 Pulse Rate [Right Pulse Oximeter] Respiratory Rate 20 20 20 Blood Pressure 146/87 H 150/80 H 143/90 H Blood Pressure [Left Arm] Pulse Oximetry 95 97 92 Oxygen Delivery Method Room Air Nasal Cannula Nasal Cannula Oxygen Flow Rate 2 2 07/22/24 11:40 07/22/24 11:50 07/22/24 15:55 Temperature 98.0 F Pulse Rate 63 64 79 Pulse Rate [Right Pulse Oximeter] Respiratory Rate 20 20 16 Blood Pressure 125/73 122/61 141/83 H Blood Pressure [Left Arm] Pulse Oximetry 97 98 93 Oxygen Delivery Method Nasal Cannula Nasal Cannula Room Air Oxygen Flow Rate 2 2 07/22/24 16:00 07/22/24 16:05 07/22/24 16:10 Temperature Pulse Rate 76 79 75 Pulse Rate [Right Pulse Oximeter] Respiratory Rate 16 16 16 Blood Pressure 143/88 H 137/83 146/92 H Blood Pressure [Left Arm] Pulse Oximetry 95 95 96 Oxygen Delivery Method Room Air Room Air Room Air Oxygen Flow Rate 07/22/24 16:15 07/22/24 16:20 07/22/24 16:25 Temperature 97.0 F L Pulse Rate 76 75 77 Pulse Rate [Right Pulse Oximeter] Respiratory Rate 16 16 16 Blood Pressure 151/80 H 148/91 H 152/94 H Blood Pressure [Left Arm] Pulse Oximetry 94 95 98 Oxygen Delivery Method Room Air Room Air Room Air Oxygen Flow Rate 07/22/24 16:45 07/22/24 16:55 07/22/24 17:00 Temperature 96.6 F L 96.6 F L 96.3 F L Pulse Rate 76 75 78 Pulse Rate [Right Pulse Oximeter] Respiratory Rate 16 16 18 Blood Pressure 157/97 H 161/93 H 150/88 H Blood Pressure [Left Arm] Pulse Oximetry 96 98 97 Oxygen Delivery Method Room Air Room Air Room Air Oxygen Flow Rate 07/22/24 17:15 07/22/24 17:30 07/22/24 18:00 Temperature 96.3 F L 97.0 F L 97.0 F L Pulse Rate 73 75 77 Pulse Rate [Right Pulse Oximeter] Respiratory Rate 18 20 18 Blood Pressure 158/97 H 161/92 H 162/87 H Blood Pressure [Left Arm] Pulse Oximetry 97 96 95 Oxygen Delivery Method Room Air Room Air Room Air Oxygen Flow Rate 07/22/24 18:30 07/22/24 19:00 07/22/24 20:00 Temperature 97.2 F L 97.2 F L 97.5 F L Pulse Rate 88 91 85 Pulse Rate [Right Pulse Oximeter] Respiratory Rate 16 20 18 Blood Pressure 171/97 H 151/81 H 122/69 Blood Pressure [Left Arm] Pulse Oximetry 95 96 95 Oxygen Delivery Method Room Air Room Air Room Air Oxygen Flow Rate 07/22/24 21:00 07/22/24 22:00 07/22/24 23:00 Temperature 97.6 F 97.6 F Pulse Rate 83 97 Pulse Rate [Right Pulse Oximeter] Respiratory Rate 18 18 18 Blood Pressure 129/77 159/90 H Blood Pressure [Left Arm] Pulse Oximetry 97 96 96 Oxygen Delivery Method Room Air Room Air Room Air Oxygen Flow Rate 07/22/24 23:00 07/23/24 01:00 07/23/24 05:44 Temperature 96.9 F L Pulse Rate Pulse Rate [Right Pulse Oximeter] 76 Respiratory Rate 18 18 18 Blood Pressure Blood Pressure [Left Arm] 152/86 H Pulse Oximetry 96 Oxygen Delivery Method Room Air Oxygen Flow Rate 07/23/24 07:00 07/23/24 07:00 Temperature 98.1 F Pulse Rate Pulse Rate [Right Pulse Oximeter] 75 Respiratory Rate 18 18 Blood Pressure Blood Pressure [Left Arm] 173/108 H Pulse Oximetry 95 95 Oxygen Delivery Method Room Air Room Air Oxygen Flow Rate Assessment and Plan Assessment and plan (1) Status post total hip replacement, left: Problem details: -07/22/2024, Dr. Nguyen, [facility], with 300 mL estimated blood loss intraoperatively and no other complications Status: Acute Assessment and Plan: Plan for discharge is today, and when they meets discharge criteria. DVT prophylaxis upon discharge Xarelto 10 mg daily for total of 5 days, then his usual aspirin 325 mg daily. Remove dressing 1 week. Observe wound and phone Orthopedics with any questions or concerns Use Ice on operative hip unrestricted. Return to clinic in 1 week with PA for a wound check Return to clinic in 6 weeks with surgeon Minimize narcotic use. Wean off and discontinue soon as possible. Activities as tolerated. No strenuous activity. Attend outpt PT
--- NOTE | 2024-07-23 12:01 | PC.NURSE ---
Discharge: The patient discharged home with his soon this AM. All discharge instructions were reviewed, and all questions were answered. The patient received a new walker while here. Tori KWON BSN
== END 2024-07-23 11:40 | disposition home or self-care (01) ==
LOC: OR 10:14 → MEDSURG 10:17
PROVIDERS: PCP Family Medicine; Visit Provider Orthopaedic Surgery
PROC: (CPT 27130; principal; 2024-07-22 12:45)
DX: M16.12 Unilateral primary osteoarthritis, left hip (principal); G89.18 Other acute postprocedural pain; M06.9 Rheumatoid arthritis, unspecified; I11.0 Hypertensive heart disease with heart failure; I50.30 Unspecified diastolic (congestive) heart failure; Z79.631 Long term (current) use of antimetabolite agent
CPT/HCPCS: 27130; 01214; 36415; 64450; 73501; 76942; 82565; 84132; 84295; 84520; 85025; 86850; 86900; 86901; 97110; 97116; 97161; 97165; 97535; A9270; C1776; J0330; J0690; J1100; J1171; J2250; J2371; J2405; J2704; J2795; J3010; J3490; J7120

== ENCOUNTER 2024-10-13 10:45 | Outpatient (RCR) | payer MEDICARE, OTHER, SELFPAY ==
--- NOTE | 2024-07-14 15:11 | PT.OPEX ---
PT [place] Outpatient Eval PT [facility] Outpatient Eval Start: 07/14/24 07:16 Freq: Status: Active Protocol: Document 07/14/24 07:17 IRVING (Rec: 07/14/24 15:10 IRVING [id number]) E-signed By Chad Sky DPT Physical Therapy Outpatient Evaluation Insurance Information Recert Due Date 10/12/24 Insurance Name Medicare B,Other; See Comments Insurance Information/Comments a[employer] Medical Diagnosis L hip OA Treating Diagnosis L KATTY Referring MD Manish Nguyen Subjective Subjective Victoriano comes into clinic with his adult son prior to his L KATTY on 07/22/24. States he has been debating getting this hip surgery for awhile but when he saw his primary that recommended him using a walker or getting a replacement he decided on surgery. Also has found at time his hip has given out leading to him almost/having falls. Pain Comments -11/04 Current Work Status Retired Objective Other/Pertinent Objective GAIT - ambulates with forward trunk posture and Trendelenburg gait pattern HIP ROM Flexion: 95 degrees Extension: neutral Internal Rotation: 5-10 degrees before pain External Rotation 25-30 degrees LLE MMT: WNL on R Hip flexion: L4/5 Hip abduction: L 4-/5 knee extension: L4+/5 Knee Flexion: L4+/5 Assessment Assessment/Impression Pt is a 83 yr old male who presents with concerns of L hip pain secondary to OA. Patient also has notable objective findings including limited ROM, impaired gait, decreased strength also likely contributing to the problem. Patient is a good candidate for skilled therapy to target deficits described above. Skilled PT intervention is necessary for use of therapeutic exercise manual therapy, neuromuscular re- education, gait training, and therapeutic activity. Functional impairments include difficulty with: walking standing stairs . See appropriate sections of PT eval for complete list of goals and POC. D/C plan and criteria is for pt to achieve the goals as listed below or until max rehab potential is met. Pt was agreeable with plan of care and goals established. Plan of Care Rehabilitation Potential Good Physical Therapy Goals KATTY GOALS STG (within 6 weeks) 1) Pt will ambulate at least 20-30 minutes with SPC device, minimal antalgic gait for improved community mobility LTG: (within 12 weeks) 1) Pt will be indep with HEP for alf management of pain/symptoms 2) Pt will improve hip AROM at least 0-90* for improved sit to stand transfers 3) Patient will ascend/descend at least 12 steps using single rail and reciprocal pattern to improve ease of mobility at home/community 4)Pt will ambulate at least 30 minutes with spc device, minimal antalgic gait for improved community mobility Coordination/Communication With Referral Source Treatment Plan/Direct Interventions Gait Training,Joint Mobilization,Manual Therapy, Neuromuscular Re-ed,Self-Care/ Home Management,Therapeutic Activities,Therapeutic Exercises Frequency/Duration 1-2 visits a week for 10-12 weeks Patient Will Be Discharged From Therapy Completion of LTG(s), Independent w/HEP, Independently Progressing Evaluation Billing Untimed Code Treatment Minutes 15 Complexity Low Certification Information Initial Certification Date 07/14/24 Ending Certification Date 10/12/24 Provider Signature Required Yes Provider Signature Shows Agreement With POC & Medical Necessity Physician NPI Number Write NPI# Here Physician Comment/Change : Physician Signature & Date Requested Please Sign/Date Here
--- OUTSIDE RECORDS SUMMARY | 2024-07-29 11:04 | XMS_ITS | Clinical Summary ---
Author Organization [facility] Address [place], [place] [address] Care Team Providers Care Electrical Helper Name Role Phone Pcp, No Primary Care Provider Unavailabl e Allergies No known active allergies Medications folic acid 1 mg tablet Take 5 pills daily 5 Active hydroxychloroqu ine (PLAQUENIL) 200 mg tablet Take one pill a day 5 Active methotrexate, PF, 25 mg/mL injection Inject 0.8 mls every week 5 Active cyanocobalamin (VITAMIN B12) 500 mcg tablet Take 1 tablet by mouth. 0 Active ascorbic acid, vitamin C, (VITAMIN C) 500 mg tablet Take 1 tablet by mouth. 9 Active aspirin, buffered (ASCRIPTIN) 325 mg buffered tablet Take 325 mg by mouth. Active lisinopriL (PRINIVIL; ZESTRIL) 20 mg tablet Take 20 mg by mouth once daily. 3 Active folic acid-vit b6-vit b12, 0.8-10-0.115mg, (FOLGARD) tablet Take 1 Tablet by mouth. Active albuterol HFA (PRO-AIR; VENTOLIN; PROVENTIL) 90 mcg/actuation inhalerIndicati ons:Pneumonia of right lower lobe due to infectious organism Inhale 1-2 Puffs by mouth every 4 hours if needed for Shortness Of Breath. 1 Each 3 Active Insulin Syringe-Needle U-100 1 mL 29 gauge x 1/2 syrg USE WITH METHOTREXATE INJECTION 3 Active Insulin Syringe-Needle U-100 1 mL 30 gauge x 3/8 syrg Use with methotrexate injection 3 Active hydroxychloroqu ine (PLAQUENIL) 200 mg tablet Take 200 mg by mouth. 3 Active B-D TB Syringe 1cc/27Gx1/2 1 mL 27 x 1/2 syrg USE WITH INJECTABLE METHOTREXATE Active hydroxychloroqu ine (PLAQUENIL) 200 mg tablet Take 200 mg by mouth. 4 Active methotrexate PF 25 mg/mL injection Inject 20 mg subcutaneous once weekly. 4 03/12/20 25 Active folic acid 1 mg tablet Take 5,000 mcg by mouth. 4 03/12/20 25 Active albuterol HFA (PRO-AIR; VENTOLIN; PROVENTIL) 90 mcg/actuation inhalerIndicati ons:Acute cough,SOB (shortness of breath) Inhale 1-2 Puffs by mouth every 4 hours if needed for Shortness Of Breath (Cough). 1 Each 4 Active benzonatate (TESSALON) 200 mg capsuleIndicati ons:Acute cough Take 1 Capsule (200 mg) by mouth 3 times daily if needed for Cough. 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 Gender Identity Not on file Sexual [...] age 65+ 2005 Pneumococcal series for age 50+ (2 of 2 - PCV) 06/28/2009 06/28/2008 RSV vaccine for adults or (1 - 1-dose 75+ series) 10/12/2015 BMI (ht and wt on same day) for age 18+ 02/07/2024 02/06/2023, 01/15/2019, 10/17/2015 COVID-19 vaccine series ( season) 2024 07/10/2021, 10/13/2020, 09/15/2020 Influenza for age 65+ 03/28/2024 08/24/2015 , 05/11/2014, 06/04/2013, Additional history exists Tetanus booster 04/21/2028 04/21/2018, 01/09/2006 Tdap Completed 01/09/2006 Insurance MEDICARE [place] ONLY MEDICARE PART B HB ONLY MEDICARE PART A HB ONLY [employer] Care Teams Electrical Helper Relationship Specialty Start Date End Date Pcp, No . PCP - General 12/26/14
--- OUTSIDE RECORDS SUMMARY | 2024-07-29 11:04 | XMS_ITS | Clinical Summary ---
Author Organization [place] Address [address] [place] [address] Care Team Providers Care Retina Subspecialist Name Role Phone No Ref-Primary, Physician Primary [...] on file Legal Sex Male 4:00 AM MAKER UP FOLDING Gender Identity Not on file Sexual Orientation Not on file Last Filed Vital Signs Vital Sign Reading Time Taken Comments Blood Pressure 140/80 08/29/2017 8:18 PM MAKER UP FOLDING Pulse 90 08/29/2017 8:18 PM MAKER UP FOLDING Temperature 36.4 C (97.6 F) 08/29/2017 8:18 PM MAKER UP FOLDING Respiratory Rate 18 08/29/2017 8:18 PM MAKER UP FOLDING Oxygen Saturation 90% 08/29/2017 7:10 PM MAKER UP FOLDING Inhaled Oxygen Concentration - - Weight - - Height - - Body Mass Index - - Plan of Treatment Not on file Insurance MEDICARE Care Teams Retina Subspecialist Relationship Specialty Start Date End Date No Ref-Primary, Physician PCP - General 08/29/17
--- OUTSIDE RECORDS SUMMARY | 2024-07-29 11:04 | XMS_ITS | Referral Summary ---
Author Organization [facility] Address [address] [place] [address] Care Team Providers Care Fork Repairer Name Role Phone No Ref-Primary, Physician Primary [...] on file Legal Sex Male 4:00 AM OPERATIONS DISPATCHER Gender Identity Not on file Sexual Orientation Not on file Last Filed Vital Signs Vital Sign Reading Time Taken Comments Blood Pressure 140/80 08/29/2017 8:18 PM OPERATIONS DISPATCHER Pulse 90 08/29/2017 8:18 PM OPERATIONS DISPATCHER Temperature 36.4 C (97.6 F) 08/29/2017 8:18 PM OPERATIONS DISPATCHER Respiratory Rate 18 08/29/2017 8:18 PM OPERATIONS DISPATCHER Oxygen Saturation 90% 08/29/2017 7:10 PM OPERATIONS DISPATCHER Inhaled Oxygen Concentration - - Weight - - Height - - Body Mass Index - - Plan of Treatment Not on file Insurance MEDICARE Care Teams Fork Repairer Relationship Specialty Start Date End Date No Ref-Primary, Physician PCP - General 08/29/17
--- OUTSIDE RECORDS SUMMARY | 2024-07-29 11:05 | XMS_ITS | Clinical Summary ---
Author Organization [facility] Address [address] [place] [address] Care Team Providers Care Shop And Alteration Tailor Name Role Phone Keven Montoya M.D. Primary Care Provider [phone] Source Comments Patient records contain information from all sites at [facility]. For routine questions regarding patient records, call [phone] during business hours, M-F 8:00 AM - 5:00 PM Central Time. Record requests for emergency care only can be directed to [phone] at any time.[facility] Allergies No known active allergies Medications FOLIC [...] Encounters Date Type Department Care Team Description 07/28/2024 Refill Division of Rheumatology in [place], [place] [address] [place] [address] Sonido Pino P.A.-C., M.S. Med Refill 06/11/2024 9:15 AM ANCILLARY SERVICES MANAGER Comprehensive Visit Department of Orthopedic Surgery in [place], [place] [address] [place] [address] Oleg Rojas M.D. Arthritis Hip 06/11/2024 Documentation Division of Rheumatology in [place], [place] [address] [place] [address] Roseanne Avalos R.N. Lab Monitoring 06/10/2024 8:53 AM ANCILLARY SERVICES MANAGER - 06/10/2024 11:59 PM ANCILLARY SERVICES MANAGER Hospital Encounter Department of Laboratory Medicine in [address] [address] Sonido Pino P.A.-C., M.S. Medication Therapy Senior Living Not Anticoagulant Discharge Disposition: Home or Self Care 06/02/2024 10:14 AM ANCILLARY SERVICES MANAGER - 06/02/2024 11:59 PM ANCILLARY SERVICES MANAGER Hospital Encounter Department of Radiology in [address] [address] Maximiliano Martinez M.D. Arthritis Hip Discharge Disposition: Home or Self Care 06/02/2024 10:00 AM ANCILLARY SERVICES MANAGER Office Visit Department of Physical Medicine and Rehabilitation in [address] [address] Maximiliano Martinez M.D. Arthritis Hip (Primary Dx); Pain Hip Left; Bursitis Trochanteric Bilateral 06/01/2024 Orders Only [facility] Keven Montoya M.D. 05/28/2024 Clinical Communication Department of Physical Medicine and Rehabilitation in [address] [address] Maximiliano Martinez M.D. Follow-up 05/12/2024 10:00 AM CDT Procedure visit Department of Physical Medicine and Rehabilitation in [address] [address] Maximiliano Martinez M.D. Bursitis Trochanteric Left 05/06/2024 Clinical Communication Department of Physical Medicine and Rehabilitation in [place], [place] [address] [place] [phone] Maximiliano Martinez M.D. Nurse Assessment (Changes in hip pain) from Last 3 Months Immunizations Name Administration [...] on file Legal Sex Male 4:20 AM ANCILLARY SERVICES MANAGER Gender Identity Male 12/01/2017 1:25 PM CDT Sexual Orientation Straight 12/01/2017 1: 25 PM CDT Last Filed Vital Signs Vital Sign Reading Time Taken Comments Blood Pressure 150/79 03/12/2024 8:49 AM CDT Pulse 84 03/12/2024 8:49 AM CDT Temperature 36.1 C (97 F) 06/11/2024 9:08 AM ANCILLARY SERVICES MANAGER Respiratory Rate 20 01/15/2021 9:38 AM CDT Oxygen Saturation - - Inhaled Oxygen Concentration - - Weight 88.3 kg (194 lb 10.7 oz) 06/11/2024 9:08 AM ANCILLARY SERVICES MANAGER Height 180.5 cm (5' 11.06) 06/11/2024 9:[address] Body Mass Index 27.1 06/11/2024 9:08 AM ANCILLARY SERVICES MANAGER Plan of Treatment Upcoming Encounters Date Type Department Care Team (Late st Contact Info) Description 09/09/2024 10:20 AM ANCILLARY SERVICES MANAGER Appointment Department of Laboratory Medicine in [place], [place] [address] [facility] [place] [address] Sonido Pino P.A.-C., M.S. [address] [place] [address] Health Maintenance Due Date Last Done Comments Visit: Annual, age 65+ (or Medicare and <65) 1940 Visit: Medicare Annual Wellness 1940 Zoster Vaccines (1 of 2) 10/12/1959 RSV vaccine - (32-3 6 weeks) or 60+ years (1 - 1-dose 75+ series) 10/12/2015 COVID-19 Vaccine (4 - 2023-2 5 season) 2024 07/10/2021, 10/13/2020, 09/15/2020 Influenza Vaccine (#1) 2024 , 04/17/2020, 06/07/2019, Additional history exists Depression Screening (Annual PHQ-2) 07/28/2024 Fall Risk Screen (Annual) 07/28/2024 Hydroxychloroquine (PLAQUENI L) Annual Exam 07/29/2024 Potassium Level 04/12/2025 04/12/2024, 12/31/2022 Sodium Level 04/12/2025 04/12/2024, 12/31/2022 Creatinine Level (Kidney Function Test) 06/10/2025 06/10/2024, 04/12/2024, 03/11/2024, Additional history exists DTaP,Tdap,and Td Vaccines (4 - Td or Tdap) 04/21/2028 04/21/2018, 01/09/2006, 01/09/2006 Pneumococcal vaccine (50+ years) Completed 03/03/2023, 06/28/2008 IPV Vaccines Aged Out No longer eligi ble based on patient's age to complete this topic Medical Devices Implanted Type Area [employer] Assistant Manager Device Identifier Shelf Expiration Date Model / Serial / Lot [employer] Rp Mkiii Tiunite 4.00mm Rp 4.00mm X 15.00mm- 011 Implanted:Qty: 1 on 07/01/2011 by Sonido Roblero D.D.S. Hardware e.g. pins/screws/r ods Mouth [employer] [id number] / / [id number] Description:Site #4 Jeannie Thompsoniii Tiunite 4.00mm Rp 4.00mm X 13.00mm- 011 Implanted:Qty: 1 on 07/01/2011 by Sonido Roblero D.D.S. Hardware e.g. pins/screws/r ods Mouth [employer] [id number] / / [id number] Description:Site #5 Jeannie Thompsoniii Tiunite 4.00mm Rp 4.00mm X 15.00mm- 011 Implanted:Qty: 1 on 07/01/2011 by Sonido Roblero D.D.S. Hardware e.g. pins/screws/r ods Mouth [employer] [id number] / / [id number] Description:Site #7 Gonzalorjosephine Thompsoniii Tiunite 4.00mm Rp 4.00mm X 15.00mm- 011 Implanted:Qty: 1 on 07/01/2011 by Sonido Roblero D.D.S. Hardware e.g. pins/screws/r ods Mouth [employer] [id number] / / [id number] Description:Site #8 Jeannie Thompsoniii Tiunite 4.00mm Rp 4.00mm X 15.00mm- 011 Implanted:Qty: 1 on 07/01/2011 by Sonido Roblero D.D.S. Hardware e.g. pins/screws/r ods Mouth [employer] [id number] / / [id number] Description:Site #9 Gonzalorjosephine Thompsoniii Tiunite 4.00mm Rp 4.00mm X 11.50mm- 011 Implanted:Qty: 1 on 07/01/2011 by Sonido Roblero D.D.S. Hardware e.g. pins/screws/r ods Mouth [employer] [id number] / / [id number] Description:Site #12 [employer] Rp Mkiii Tiunite 4.00mm Rp 4.00mm X 10.00mm- 011 Implanted:Qty: 1 on 07/01/2011 by Sonido Roblero D.D.S. Hardware e.g. pins/screws/r ods Mouth [employer] [id number] / / [id number] Description:Site #13 Procedures Procedure Name Priority Date/Time Associated Diagnosis Comments CREATININE WITH EGFR, S/P Routine 06/10/2024 9:27 AM ANCILLARY SERVICES MANAGER Medication Therapy Travel Agency Manager Not Anticoagulant ALANINE AMINOTRANSFERASE (ALT), S/P Routine 06/10/2024 9:27 AM ANCILLARY SERVICES MANAGER Medication Therapy Travel Agency Manager Not Anticoagulant ASPARTATE AMINOTRANSFERASE (AST), S/P Routine 06/10/2024 9:27 AM ANCILLARY SERVICES MANAGER Medication Therapy Senior Living Not Anticoagulant CBC WITH DIFFERENTIAL, B Routine 06/10/2024 9:27 AM ANCILLARY SERVICES MANAGER Medication Therapy Senior Living Not Anticoagulant DX HIP AND PELVIS LEFT 2-3 VIEWS RAD - Routine (most inpatients and all outpatients) 06/02/2024 10:30 AM ANCILLARY SERVICES MANAGER Arthritis Hip CT ARTHCS ASP/INJ MJR JT W US Routine 05/12/2024 10:00 AM CDT Bursitis Trochanteric Left BASIC METABOLIC PANEL, S/P Routine 12/31/2022 10:58 AM CDT Monitoring For Therapeutic Drug Therapy from Last 3 Months or Most Recently Relevant to Health Maintenance Results * (ABNORMAL) CBC with Differential, Blood (06/10/2024 9:27 AM ANCILLARY SERVICES MANAGER) Hemoglobin 14.5 13.2 - 16.6 g/dL 06/10/2024 9:36 AM ANCILLARY SERVICES MANAGER OWAT Hematocrit 42.5 38.3 - 48.6 % 06/10/2024 9:36 AM ANCILLARY SERVICES MANAGER OWAT Erythrocytes 4.48 4.35 - 5.65 x10(12)/L 06/10/2024 9:36 AM ANCILLARY SERVICES MANAGER OWAT MCV 94.9 78.2 - 97.9 fL 06/10/2024 9:36 AM ANCILLARY SERVICES MANAGER OWAT RBC Distrib Width 15.6(H) 11.8 - 14.5 % 06/10/2024 9:36 AM ANCILLARY SERVICES MANAGER OWAT Platelet Count 216 135 - 317 x10(9)/L 06/10/2024 9:36 AM ANCILLARY SERVICES MANAGER OWAT Leukocytes 6.2 3.4 - 9.6 x10(9)/L 06/10/2024 9:36 AM ANCILLARY SERVICES MANAGER OWAT Neutrophils 4.41 1.56 - 6.45 x10(9)/L 06/10/2024 9:36 AM ANCILLARY SERVICES MANAGER OWAT Lymphocytes 0.92(L) 0.95 - 3.07 x10(9)/L 06/10/2024 9:36 AM ANCILLARY SERVICES MANAGER OWAT Monocytes 0.65 0.26 - 0.81 x10(9)/L 06/10/2024 9:36 AM ANCILLARY SERVICES MANAGER OWAT Eosinophils 0.13 0.03 - 0.48 x10(9)/L 06/10/2024 9:36 AM ANCILLARY SERVICES MANAGER OWAT Basophils 0.06 0.01 - 0.08 x10(9)/L 06/10/2024 9:36 AM ANCILLARY SERVICES MANAGER OWAT Blood (Blood, Venous) 06/10/2024 9:27 AM ANCILLARY SERVICES MANAGER 06/10/2024 9:33 AM ANCILLARY SERVICES MANAGER us Sonido Pino P.A.-C., M.S. LAB BLOOD ADD-ON Final Result [facility] [address] [place] [address], [facility] OWAT [facility] in [place] [address] [place] [address] * ALT (Alanine Aminotransferase) (06/10/2024 9:27 AM ANCILLARY SERVICES MANAGER) Alanine Aminotransferase (ALT), P 10 7 - 55 U/L 06/10/2024 9:57 AM ANCILLARY SERVICES MANAGER OWAT Blood (Blood, Venous) 06/10/2024 9:27 AM ANCILLARY SERVICES MANAGER 06/10/2024 9:33 AM ANCILLARY SERVICES MANAGER Sonido Pino P.A.-C., M.S. LAB BLOOD ADD-ON Final Result Performing Organization Address City/[facility]/ZIP Co de Phone Number [facility] [address] [place] [address], [place] OWAT [facility] in [place] [address] [place] [address] * AST (Aspartate Aminotransferase) (06/10/2024 9:27 AM ANCILLARY SERVICES MANAGER) Aspartate Aminotransferase (AST), P 24 8 - 48 U/L 06/10/2024 9:57 AM ANCILLARY SERVICES MANAGER OWAT Blood (Blood, Venous) 06/10/2024 9:27 AM ANCILLARY SERVICES MANAGER 06/10/2024 9:33 AM ANCILLARY SERVICES MANAGER Sonido Pino P.A.-C., M.S. LAB BLOOD ADD-ON Final Result Performing Organization Address [facility] Co de Phone Number [facility] [address] [place] [address], [place] AT [facility] in [place] [address], [place] [address] * Creatinine with Estimated GFR (06/10/2024 9:27 AM ANCILLARY SERVICES MANAGER) Creatinine 1.04 0.74 - 1.35 mg/dL 06/10/2024 9:57 AM ANCILLARY SERVICES MANAGER OWAT Estimated GFR (eGFR) 71 >=60 mL/min/BSA 06/10/2024 9:57 AM ANCILLARY SERVICES MANAGER OWAT Comment: Estimated GFR calculated using the 2020 CKD_EPI creatinine equation. Blood (Blood, Venous) 06/10/2024 9:27 AM ANCILLARY SERVICES MANAGER 06/10/2024 9:33 AM ANCILLARY SERVICES MANAGER us Sonido Pino P.A.-C., M.S. LAB BLOOD ADD-ON Final Result Performing Organization Address City/[facility]/ZIP Co de Phone Number [facility] [address] [place] [address], [facility] OWAT [facility] in [place] [address] [place] [address] * DX Hip And Pelvis Left 2-3 Views (06/02/2024 10:30 AM ANCILLARY SERVICES MANAGER) Anatomical Region Laterality Modality Lower Extremity, Pelvis, Hip , Musculoskeletal RST LOS, Musculoskeletal ARZ LOS, Muskuloskeletal FLA LOS Left Digit al Radiography Impressions 06/02/2024 10:34 AM ANCILLARY SERVICES MANAGER Comparison 03/12/2024. Unchanged moderate left hip joint osteoarthritis. Alignment normal. No acute fracture. Asphericity of the femoral head neck junctions can predispose to femoroacetabular impingement bilaterally. Narrative 06/02/2024 10:34 AM ANCILLARY SERVICES MANAGER EXAM: DX HIP AND PELVIS LEFT 2-3 VIEWS Procedure Note Azeem Bowden M.D. - 06/02/2024 EXAM: DX HIP AND PELVIS LEFT 2-3 VIEWS IMPRESSION: Comparison 03/12/2024. Unchanged moderate left hip joint osteoarthritis. Alignment normal. Noacute fracture. Asphericity of the femoral head neck junctions canpredispose to femoroacetabular impingement bilaterally. us Maximiliano Martinez M.D. IMG DIAGNOSTIC IMAGING P ROCEDURES Final Result * CT ARTHCS ASP/INJ MJR JT W US (05/12/2024 [...] SURGICAL ORDERABLES Final Result MMODAL NA * (ABNORMAL) Basic Metabolic Panel (12/31/2022 10:58 AM CDT) Potassium, P 4.6 3.6 - 5.2 mmol/L 12/31/2022 2:00 PM CDT OWAT Sodium, P 141 135 - 145 mmol/L 12/31/2022 2:00 PM CDT OWAT Chloride, P 104 98 - 107 mmol/L 12/31/2022 2:00 PM CDT OWAT Bicarbonate, P 28 22 - 29 mmol/L 12/31/2022 2:00 PM CDT OWAT Anion Gap, P 9 7 - 15 12/31/2022 2:00 PM CDT OWAT BUN (Blood Urea Nitrogen), P 19 8 - 24 mg/dL 12/31/2022 2:00 PM CDT OWAT Creatinine 0.89 0.74 - 1.35 mg/dL 12/31/2022 2:00 PM CDT OWAT Estimated GFR (eGFR) 86 >=60 mL/min/BSA 12/31/2022 2:00 PM CDT OWAT Comment: Estimated GFR calculated using the 2020 CKD_EPI creatinine equation. Calcium, Total, P 9.4 8.8 - 10.2 mg/dL 12/31/2022 2:00 PM CDT OWAT Glucose, P 54(L) 70 - 140 mg/dL 12/31/2022 2:00 PM CDT OWAT Blood (Blood, Venous) 12/31/2022 10:58 AM CDT 12/31/2022 1:27 PM CDT Keven Montoya M.D. LAB BLOOD ADD-ON Final Resul t [facility] [address] [place] [address], [facility] OWAT [facility] in [place] [address] [place] [address] from Last 3 Months or Most Recently Relevant to Health Maintenance Additional Health Concerns Infection Onset Date Last Indicated Protective Environment 11/21/2022 3 Insurance MEDICARE DIRECTOR OF PATIENT FINANCIAL SERVICES BENEFIT PLAN Care Teams Shop And Alteration Tailor Relationship Specialty Start Date End Date Keven Montoya M.D. [address] [place] [address] [place] [phone] PCP - General Family Medicine 12/26/20
--- OUTSIDE RECORDS SUMMARY | 2024-07-29 11:05 | XMS_ITS | Encounter Summary ---
Author Organization [facility] Address [address] [place] [address] Care Team Providers Care Apartment Community Manager Name Role Phone Keven Montoya M.D. Primary Care Provider Encounter Details Date Type Department Care Team (Late st Contact Info) Description 09/29/2002 Historical Ophthalmology RST [facility] Joe Liriano M.D. Social History Tobacco Use Types Packs/Day Years Used Date Smoking Tobacco: Never Assessed Sex and Gender Information Value Date Recorded Sex Assigned at Not on file Legal Sex Male 4:20 AM RETAIL STORE CLERK Gender Identity Male 12/01/2017 1:25 PM CDT [...] plaquenil toxicity CDM Reports - EYEGEN Id: [id number] Status: Fnl documented in this encounter Plan of Treatment Upcoming Encounters Date Type Department Care Team (Late st Contact Info) Description 09/09/2024 10:20 AM RETAIL STORE CLERK Appointment Department of Laboratory Medicine in [place], [place] [address] [place] [address] Sonido Pino P.A.-C., M.S. [address] [place] [address] documented as of this encounter Visit Diagnoses Not on filedocumented in this encounter Additional Health Concerns Infection Onset Date Last Indicated Resolved Time Protective Environment 11/21/2022 11/21/2022 documented as of this encounter Care Teams Apartment Community Manager Relationship Specialty Start Date End Date Keven Montoya M.D. [address] [place] [address] PCP - General Family Medicine 12/26/20 documented as of this encounter
--- OUTSIDE RECORDS SUMMARY | 2024-07-29 11:05 | XMS_ITS | Referral Summary ---
Author Organization [facility] Address [address] [place] [address] Care Team Providers Care Global Cto Name Role Phone Keven Montoya M.D. Primary Care Provider Source Comments Patient records contain information from all sites at [facility]. For routine questions regarding patient records, call [phone] during business hours, M-F 8:00 AM - 5:00 PM Central Time. Record requests for emergency care only can be directed to [phone] at any time.[facility] Encounters Date Type Department Care Team Description 07/28/2024 Refill Division of Rheumatology in [place], [place] [address] [place] [phone] Sonido Pino P.A.-C., M.S. Med Refill 06/11/2024 Documentation Division of Rheumatology in [place], [place] [address] [place] [address] Roseanne Avalos R.N. Lab Monitoring 06/11/2024 9:15 AM CANVAS MARKER Comprehensive Visit Department of Orthopedic Surgery in [place], [place] [address] [place] [phone] Oleg Rojas M.D. Arthritis Hip 06/10/2024 8:53 AM CANVAS MARKER - 06/10/2024 11:59 PM CANVAS MARKER Hospital Encounter Department of Laboratory Medicine in [place], [place] [address] [place] [address] Sonido Pino P.A.-C., M.S. Medication Therapy [employer] Not Anticoagulant Discharge Disposition: Home or Self Care 06/02/2024 10:14 AM CANVAS MARKER - 06/02/2024 11:59 PM CANVAS MARKER Hospital Encounter Department of Radiology in [address] [address] Maximiliano Martinez M.D. Arthritis Hip Discharge Disposition: Home or Self Care 06/02/2024 10:00 AM CANVAS MARKER Office Visit Department of Physical Medicine and Rehabilitation in [address] [phone] Maximiliano Martinez M.D. Arthritis Hip (Primary Dx); Pain Hip Left; Bursitis Trochanteric Bilateral 06/01/2024 Orders Only [facility] [place] Keven Montoya M.D. 05/28/2024 Clinical Communication Department of Physical Medicine and Rehabilitation in [address] [phone] Maximiliano Martinez M.D. Follow-up 05/12/2024 10:00 AM CDT Procedure visit Department of Physical Medicine and Rehabilitation in [address] [phone] Maximiliano Martinez M.D. Bursitis Trochanteric Left 05/06/2024 Clinical Communication Department of Physical Medicine and Rehabilitation in [place], [place] [address] [place] [address] Maximiliano Martinez M.D. Nurse Assessment (Changes in hip pain) from Last 3 Months Allergies No known [...] on file Legal Sex Male 4:20 AM CANVAS MARKER Gender Identity Male 12/01/2017 1:25 PM CDT Sexual Orientation Straight 12/01/2017 1: 25 PM CDT Last Filed Vital Signs Vital Sign Reading Time Taken Comments Blood Pressure 150/79 03/12/2024 8:49 AM CDT Pulse 84 03/12/2024 8:49 AM CDT Temperature 36.1 C (97 F) 06/11/2024 9:08 AM CANVAS MARKER Respiratory Rate 20 01/15/2021 9:38 AM CDT Oxygen Saturation - - Inhaled Oxygen Concentration - - Weight 88.3 kg (194 lb 10.7 oz) 06/11/2024 9:08 AM CANVAS MARKER Height 180.5 cm (5' 11.06) 06/11/2024 9:[address] Body Mass Index 27.1 06/11/2024 9:08 AM CANVAS MARKER Plan of Treatment Upcoming Encounters Date Type Department Care Team (Late st Contact Info) Description 09/09/2024 10:20 AM CANVAS MARKER Appointment Department of Laboratory Medicine in [place], [place] [address] [place] [address] Sonido Pino P.A.-C., M.S. [address] [place] [address] Medical Devices Implanted Type Area Criminal Justice Department Chair Device Identifier Shelf Expiration Date Model / Serial / Lot Gonzalork Rp Mkiii Tiunite 4.00mm Rp 4.00mm X 15.00mm- 011 Implanted:Qty: 1 on 07/01/2011 by Sonido Roblero D.D.S. Hardware e.g. pins/screws/r ods Mouth [employer] [id number] / / [id number] Description:Site #4 [employer] Rp Mkiii Tiunite 4.00mm Rp 4.00mm X 13.00mm- 011 Implanted:Qty: 1 on 07/01/2011 by Sonido Roblero D.D.S. Hardware e.g. pins/screws/r ods Mouth [employer] [id number] / / [id number] Description:Site #5 [employer] Rp Mkiii Tiunite 4.00mm Rp 4.00mm X 15.00mm- 011 Implanted:Qty: 1 on 07/01/2011 by Sonido Roblero D.D.S. Hardware e.g. pins/screws/r ods Mouth [employer] [id number] / / [id number] Description:Site #7 [employer] Rp Mkiii Tiunite 4.00mm Rp 4.00mm X 15.00mm- 011 Implanted:Qty: 1 on 07/01/2011 by Sonido Roblero D.D.S. Hardware e.g. pins/screws/r ods Mouth [employer] [id number] / / [id number] Description:Site #8 [employer] Rp Mkiii Tiunite 4.00mm Rp 4.00mm X 15.00mm- 011 Implanted:Qty: 1 on 07/01/2011 by Sonido Roblero D.D.S. Hardware e.g. pins/screws/r ods Mouth [employer] [id number] / / [id number] Description:Site #9 [employer]laork Rp Mkiii Tiunite 4.00mm Rp 4.00mm X 11.50mm- 011 Implanted:Qty: 1 on 07/01/2011 by Sonido Roblero D.D.S. Hardware e.g. pins/screws/r ods Mouth [employer] [id number] / / [id number] Description:Site #12 [employer]alork Rp Mkiii Tiunite 4.00mm Rp 4.00mm X 10.00mm- 011 Implanted:Qty: 1 on 07/01/2011 by Sonido Roblero D.D.S. Hardware e.g. pins/screws/r ods Mouth [employer] [id number] / / [id number] Description:Site #13 Procedures Procedure Name Priority Date/Time Associated Diagnosis Comments CREATININE WITH EGFR, S/P Routine 06/10/2024 9:27 AM CANVAS MARKER Medication Therapy [employer] Not Anticoagulant ALANINE AMINOTRANSFERASE (ALT), S/P Routine 06/10/2024 9:27 AM CANVAS MARKER Medication Therapy [employer] Not Anticoagulant ASPARTATE AMINOTRANSFERASE (AST), S/P Routine 06/10/2024 9:27 AM CANVAS MARKER Medication Therapy [facility] Not Anticoagulant CBC WITH DIFFERENTIAL, B Routine 06/10/2024 9:27 AM CANVAS MARKER Medication Therapy [facility] Not Anticoagulant DX HIP AND PELVIS LEFT 2-3 VIEWS RAD - Routine (most inpatients and all outpatients) 06/02/2024 10:30 AM CANVAS MARKER Arthritis Hip LA ARTHCS ASP/INJ MJR JT W US Routine 05/12/2024 10:00 AM CDT Bursitis Trochanteric Left BASIC METABOLIC PANEL, S/P Routine 12/31/2022 10:58 AM CDT Monitoring For Therapeutic Drug Therapy from Last 3 Months or Most Recently Relevant to Health Maintenance Results * (ABNORMAL) CBC with Differential, Blood (06/10/2024 9:27 AM CANVAS MARKER) Hemoglobin 14.5 13.2 - 16.6 g/dL 06/10/2024 9:36 AM CANVAS MARKER OWAT Hematocrit 42.5 38.3 - 48.6 % 06/10/2024 9:36 AM CANVAS MARKER OWAT Erythrocytes 4.48 4.35 - 5.65 x10(12)/L 06/10/2024 9:36 AM CANVAS MARKER OWAT MCV 94.9 78.2 - 97.9 fL 06/10/2024 9:36 AM CANVAS MARKER OWAT RBC Distrib Width 15.6(H) 11.8 - 14.5 % 06/10/2024 9:36 AM CANVAS MARKER OWAT Platelet Count 216 135 - 317 x10(9)/L 06/10/2024 9:36 AM CANVAS MARKER OWAT Leukocytes 6.2 3.4 - 9.6 x10(9)/L 06/10/2024 9:36 AM CANVAS MARKER OWAT Neutrophils 4.41 1.56 - 6.45 x10(9)/L 06/10/2024 9:36 AM CANVAS MARKER OWAT Lymphocytes 0.92(L) 0.95 - 3.07 x10(9)/L 06/10/2024 9:36 AM CANVAS MARKER OWAT Monocytes 0.65 0.26 - 0.81 x10(9)/L 06/10/2024 9:36 AM CANVAS MARKER OWAT Eosinophils 0.13 0.03 - 0.48 x10(9)/L 06/10/2024 9:36 AM CANVAS MARKER OWAT Basophils 0.06 0.01 - 0.08 x10(9)/L 06/10/2024 9:36 AM CANVAS MARKER OWAT Blood (Blood, Venous) 06/10/2024 9:27 AM CANVAS MARKER 06/10/2024 9:33 AM CANVAS MARKER us Sonido Pino P.A.-C., M.S. LAB BLOOD ADD-ON Final Result [facility] [address] [place] [address], [place] OWAT [facility] [place] [address] [place] [address] * ALT (Alanine Aminotransferase) (06/10/2024 9:27 AM CANVAS MARKER) Alanine Aminotransferase (ALT), P 10 7 - 55 U/L 06/10/2024 9:57 AM CANVAS MARKER OWAT Blood (Blood, Venous) 06/10/2024 9:27 AM CANVAS MARKER 06/10/2024 9:33 AM CANVAS MARKER Sonido Pino P.A.-C., M.S. LAB BLOOD ADD-ON Final Result [facility] [address] [place] [address], [place] OW[place] [facility] [place] [address] [place] [address] * AST (Aspartate Aminotransferase) (06/10/2024 9:27 AM CANVAS MARKER) Aspartate Aminotransferase (AST), P 24 8 - 48 U/L 06/10/2024 9:57 AM CANVAS MARKER OWAT Blood (Blood, Venous) 06/10/2024 9:27 AM CANVAS MARKER 06/10/2024 9:33 AM CANVAS MARKER Sonido Pino P.A.-C., M.S. LAB BLOOD ADD-ON Final Result [facility] [address] [place] [address], [place] OW[place] [facility] [place] [address] [place] [address] * Creatinine with Estimated GFR (06/10/2024 9:27 AM CANVAS MARKER) Creatinine 1.04 0.74 - 1.35 mg/dL 06/10/2024 9:57 AM CANVAS MARKER OWAT Estimated GFR (eGFR) 71 >=60 mL/min/BSA 06/10/2024 9:57 AM CANVAS MARKER OWAT Comment: Estimated GFR calculated using the 2020 CKD_EPI creatinine equation. Blood (Blood, Venous) 06/10/2024 9:27 AM CANVAS MARKER 06/10/2024 9:33 AM CANVAS MARKER us Sonido Pino P.A.-C., M.S. LAB BLOOD ADD-ON Final Result [facility] [address] [place] [address], [facility] OWAT [facility] [place] [address] [place] [address] * DX Hip And Pelvis Left 2-3 Views (06/02/2024 10:30 AM CANVAS MARKER) Anatomical Region Laterality Modality Lower Extremity, Pelvis, Hip , Musculoskeletal RST LOS, Musculoskeletal ARZ LOS, Muskuloskeletal FLA LOS Left Digit al Radiography Impressions 06/02/2024 10:34 AM CANVAS MARKER Comparison 03/12/2024. Unchanged moderate left hip joint osteoarthritis. Alignment normal. No acute fracture. Asphericity of the femoral head neck junctions can predispose to femoroacetabular impingement bilaterally. Narrative 06/02/2024 10:34 AM CANVAS MARKER EXAM: DX HIP AND PELVIS LEFT 2-3 VIEWS Procedure Note Azeem Bowden M.D. - 06/02/2024 EXAM: DX HIP AND PELVIS LEFT 2-3 VIEWS IMPRESSION: Comparison 03/12/2024. Unchanged moderate left hip joint osteoarthritis. Alignment normal. Noacute fracture. Asphericity of the femoral head neck junctions canpredispose to femoroacetabular impingement bilaterally. us Maximiliano Martinez M.D. IMG DIAGNOSTIC IMAGING P ROCEDURES Final Result * LA ARTHCS ASP/INJ MJR JT W [...] 10:58 AM CDT 12/31/2022 1:27 PM CDT us Keven Montoya M.D. LAB BLOOD ADD-ON Final Resul t [facility] [address] [place] [address], [facility] OWAT [facility] [place] [address] [place] [address] from Last 3 Months or Most Recently Relevant to Health Maintenance Additional Health Concerns Infection Onset Date Last Indicated Protective Environment 11/21/2022 3 Insurance MEDICARE PRENATAL NURSE BENEFIT PLAN Care Teams Global Cto Relationship Specialty Start Date End Date Keven Montoya M.D. NPSalazar: [phone] [address] [place] [address] [place] [phone] PCP - General Family Medicine 12/26/20
--- OUTSIDE RECORDS SUMMARY | 2024-07-29 11:05 | XMS_ITS ---
Author Organization [facility] Address [address] [place] [address] Care Team Providers Care Iron Worker Apprentice Name Role Phone Unavailable Unavailable Unavailable Surgery Details Not on file Complications Check Surgery Details section. Procedure Estimated Blood Loss Check Surgery Details section. Procedure Findings Check Surgery Details section. Procedure Specimens Taken Check Surgery Details section.
--- OUTSIDE RECORDS SUMMARY | 2024-07-29 11:05 | XMS_ITS | Encounter Summary ---
Author Organization [facility] Address [address] [place] [address] Care Team Providers Care Coffee Roaster Helper Name Role Phone Keven Montoya M.D. Primary Care Provider [phone] Reason for Visit * Reason Comments Med Refill Encounter Details Date Type Department Care Team (Late Contact Info) Description 07/28/2024 Refill Division of Rheumatology in [place], [place] [address] [place] [phone] Sonido Pino P.A.-C., M.S. [address] [place] [phone] Med Refill Social History Tobacco Use [...] on file Legal Sex Male 4:20 AM LINEN ATTENDANT Gender Identity Male 12/01/2017 1:25 PM CDT Sexual Orientation Straight 12/01/2017 1: 25 PM CDT documented as of this encounter Plan of Treatment Upcoming Encounters Date Type Department Care Team (Late Contact Info) Description 09/09/2024 10:20 AM LINEN ATTENDANT Appointment Department of Laboratory Medicine in [place], [place] [address] [place] [address] Sonido Pino P.A.-C., M.S. [address] [place] [address] documented as of this encounter Visit Diagnoses Diagnosis Arthritis Rheumatoid (HCC) documented in this encounter Additional Health Concerns Infection Onset Date Last Indicated Resolved Time Protective Environment 11/21/2022 11/21/2022 documented as of this encounter Care Teams Coffee Roaster Helper Relationship Specialty Start Date End Date Keven Montoya M.D. [address] [place] [phone] PCP - General Family Medicine 12/26/20 documented as of this encounter
== END 2024-10-13 13:38 | disposition home or self-care (01) ==
PROVIDERS: PCP Family Medicine; Visit Provider Orthopaedic Surgery
DX: M16.12 Unilateral primary osteoarthritis, left hip (principal); Z96.642 Presence of left artificial hip joint; Z51.89 Encounter for other specified aftercare
CPT/HCPCS: 97110; 97112; 97161

== ENCOUNTER 2025-01-17 11:35 | Outpatient (CLI) | payer MEDICARE, OTHER, SELFPAY | END 2025-01-17 11:36 | disposition home or self-care (01) | PROVIDERS: PCP Family Medicine; Visit Provider Family Medicine | DX: I10 Essential (primary) hypertension (principal) | CPT/HCPCS: 80048; 80061 ==